=== PATIENT | male | born 1955 | race Caucasian/White ===

== ENCOUNTER 2017-12-18 22:08 | Inpatient (IN) ==
--- NOTE | 2017-12-19 00:52 | Internal Med History&Physical ---
<Magalys Bowden N - Last Filed: 12/19/17 05:19> Date of Encounter: 12/19/17 Time of Encounter: 00:52 Internal Medicine - H&P: HPI Chief complaint: AMS/Pneumonia Admitted From: Hospital to Hospital Transfer History of present illness: Mr. Crowder is a 62 year old male who arrived at [facility] as a transfer from [facility]. Prior to his transfer, patient required physical and chemical restraints due to agitation. Upon arrival at [facility], patient was very somnolent and difficult to wake. Several hours after arrival at [facility], patient continued to be extremely somnolent and unable to stay awake; therefore, HPI is obtained via review of ED records from [place]. Patient has no known medical history and any current medications are unknown. Patient reportedly presented to the ED at [facility] via ambulance from his home due to altered mental status. Per family reports, patient had been feeling unwell for a few days, but was resistant to medical evaluation; per reports, he was combative with EMS personnel en route to the ED. He was found to be hypoxemic upon arrival at [facility], which was improved with supplemental O2. Patient was found to be confused at [facility], oriented only to person and place. Per their documen tation, patient has a history of extensive alcohol use, consuming 5-6 drinks daily. His fiance, who was present at the time, reported that he had not consumed alcohol that day, which is out of the ordinary for him. Initial vital signs recorded at [facility] were as follows: temperature 99.8, HR 114, RR 18, BP 162/86, and oxygen saturation 91%. Laboratory studies were significant for the following abnormalities: WBC 12.3, hemoglobin 19.1, hematocrit 56.4, sodium 121, carbon dioxide 32, and total bilirubin 1.3. Urinalysis was significant for 80 ketones, small bilirubin, and 2.0 urobilinogen. Chest x-ray demonstrated right lower lobe airspace opacification, concerning for pneumonia. Head CT demonstrated no acute intracranial abnormality, though severe white matter disease was noted. Patient was administered 1 dose of levofloxacin, after which she was transferred to [facility] for further workup and management. Prior to transport, patient was noted to be agitated at and combative, and was administer ed 1 mg of Ativan. Patient was seen and evaluated at the bedside upon arrival. At that time, he was very difficult to rouse, and only answered questions with incoherent mumbling. Patient was reassessed several hours later, and remained difficult to arouse, though he was able to remain awake for several seconds. He stated that he was at home and denied any acute complaints or recent illness. Past Med Surg Social Fam HX - Past Medical History Medical history: hyperlipidemia, hypertension - Social History Smoking Status: Current every day smoker Alcohol use: heavy Drug use: none Internal Medicine - H&P: Meds Allergy/AdvReac Type Severity Reaction Status Date / Time No Known Allergies Allergy Verified 12/18/17 17:59 ROS unobtainable: due to mental status - Constitutional Vitals: Temp Pulse Resp BP Pulse Ox 97.8 F 102 14 117/67 96 12/19/17 00:36 12/19/17 00:36 12/19/17 00:47 12/19/17 00:36 12/19/17 00:47 Exam: GENERAL: Well-developed, well-nourished adult male. He is extremely somnolent and difficult to wake. HEENT: Atraumatic and normocephalic. Currently receiving BiPAP therapy. Face appears erythematous. CARDIOVASCULAR: Regular rate and rhythm. S1 and S2 present. No murmurs, gallops, or rubs appreciated. RESPIRATORY: Lungs appear clear bilaterally; however, exam is limited due to patient's somnolence and current BiPAP therapy. GASTROINTESTINAL: Active bowel sounds 4 quadrants. Abdomen is soft and nondistended. No organomegaly noted. EXTREMITIES: No clubbing or cyanosis. 1+ bilateral lower extremity pitting edema that is slightly worse on the right. SKIN: Warm, dry, and intact. NEUROLOGIC: Patient is not oriented to place. Unable to assess if oriented to self and time. Patient observed to move all 4 extremities spontaneously. Internal Med - H&P Results - Labs CBC & Chem 7: 12/19/17 01:52 12/19/17 02:26 - Assessment and plan (1) Altered mental status Current Visit: Yes Status: Acute Assessment and plan: Unclear etiology. Patient did receive 1 dose of Ativan prior to transport to [facility]. - Repeat laboratory studies significant for hemoglobin 18.6, hematocrit 56.0, and sodium 125 - Other laboratory abnormalities: PT 14.5, carbon dioxide 33, serum and calcul ated osmolality 256, calcium 7.9, phosphorus 4.9, BNP 118, and ammonia 54 - Urine toxicology screen negative - No elevation of acetaminophen or salicylate level - TSH and vitamin B12 levels within normal limits - D-dimer elevated at 1385; CTA did not demonstrate any definitive scan evidence for pulmonary embolus Plan: - Brain MRI pending - Continue telemetry monitoring and vital sign assessment per protocol Qualifiers: Altered mental status type: unspecified Qualified Code(s): R41.82 - Altered mental status, unspecified (2) Hyponatremia Current Visit: Yes Status: Acute Assessment and plan: Unclear etiology. - Repeat electrolyte studies for evaluate effect of NS bolus administered at [facility] - Continue gentle IV fluid hydration to allow for slow sodium correction - Urine sodium and osmolality studies pending - Obtain measured serum osmolality (3) Pneumonia Current Visit: Yes Status: Suspected Assessment and plan: Chest x-ray was concerning for a right lower lobe pneumonia. Per nursing notes, initial oxygen saturation at the time of arrival was 80% on 4 L via nasal cannula. Patient has continued to require BiPAP therapy since arrival to [facility]. - Empiric antibiotic therapy with vancomycin and zosyn - Obtain repeat CBC - Urine legionella and strep antigens pending - Pulmonology consult for recommendations Qualifiers: Pneumonia type: due to unspecified organism Laterality: right Lung location: lower lobe of lung Qualified Code(s): J18.1 - Lobar pneumonia, unspecified organism (4) Alcohol abuse Current Visit: Yes Status: Acute Assessment and plan: - CIWA protocol initiated (5) Pleural effusion Current Visit: Yes Status: Acute Assessment and plan: Unknown etiology. - Continue BiPAP therapy as required for appropriate oxygen saturation - Consider thoracentesis and IR consult as necessary - Time Spent With Patient Total time spent is greater than 50% in coordination of care (as documented) at patient's floor/unit and/or counseling patient: <Bernabe Laureanonadya Guzman - Last Filed: 12/19/17 06:54> Date of Encounter: 12/19/17 Internal Medicine - H&P: HPI History of present illness: Mr. Crowder is a 62 year old male All Systems PM: A 10-system review of systems was performed and is negative for pertinent findings except as documented above in the HPI. - Constitutional Vitals: Temp Pulse Resp BP Pulse Ox 97.8 F 102 9 117/67 93 11/11/18 00:36 12/19/17 00:36 12/19/17 04:18 12/19/17 00:36 12/19/17 04:18 Internal Med - H&P Results - Labs CBC & Chem 7: 12/19/17 01:52 12/19/17 02:26 Labs: Short CBC 12/19/17 Range/Units 01:52 WBC 11.1 (4.3-11.1) K/mcL Hgb 18.6 H (12.9-16.9) g/dL Hct 56.0 H (37.5-50.1) % Plt Count 178 (140-400) K/mcL Neutrophils # 8.9 (1.6-8.9) K/mcL BMP 12/19/17 12/19/17 01:52 02:26 Sodium 125 L 124 L Potassium 4.3 4.3 Chloride 88 L 87 L Carbon Dioxide 26 33 H BUN 9 8 Creatinine 0.41 L 0.48 L Glucose 92 89 Calcium 7.9 L 7.9 L Cardiac Enzymes 12/19/17 Range/Units 01:52 Troponin I < 0.03 (< 0.04) ng/mL Liver Function 12/19/17 Range/Units 01:52 Total Bilirubin 0.9 (0.3-1.0) mg/dL AST 22 (13-39) Units/L ALT 23 (7-52) Units/L Alkaline Phosphatase 70 (34-104) Units/L Albumin 3.3 L (3.5-5.7) g/dL - ABG Interpretation ABG results: 12/19/17 04:18 ABG pH 7.33 ABG pCO2 64 H ABG pO2 85 ABG HCO3 34 H ABG Total CO2 36 H ABG O2 Saturation 95 ABG Base Excess 4 H - Impressions ITS Impressions Chest CTA 12/19/17 03:34 IMPRESSION: 1. No definite scan evidence for pulmonary embolus. 2. Pulmonary hypertension. 3. Bilateral pleural effusions with bilateral atelectasis or, less likely, pneumonia. D/ / Roosevelt Hook MD / Roosevelt Hook MD Interpreting Provider: Roosevelt Hook MD - Assessment and plan (1) Altered mental status Current Visit: Yes Status: Acute Qualifiers: Altered mental status type: unspecified Qualified Code(s): R41.82 - Altered mental status, unspecified (2) Pneumonia Current Visit: Yes Status: Suspected Qualifiers: Pneumonia type: due to unspecified organism Laterality: right Lung location: lower lobe of lung Qualified Code(s): J18.1 - Lobar pneumonia, unspecified organism (3) Hyponatremia Current Visit: Yes Status: Acute (4) Alcohol abuse Current Visit: Yes Status: Acute (5) Pleural effusion Current Visit: Yes Status: Acute - Time Spent With Patient Total time spent is greater than 50% in coordination of care (as documented) at patient's floor/unit and/or counseling patient: - Attending Attestation I performed a history and physical examination of the patient to the best of my ability given his mental status and discussed his management with the resident. I reviewed the resident's note and agree with the documented findings and plan of care. In short patient is a 61-year-old male who was transferred from [place] due to altered mental status. According to family members patient has a history of smoking and alcohol use. Patient arrived lethargic and hypoxemic. Was placed on BiPAP with improvement in his respiratory status. Initial ABG upon arrival showed hypercapnia and mild respiratory acidosis likely secondary to treatment with Ativan prior to transfer due to agitation. CT scan of the head at [place] showed evidence of severe white matter disease. A CTA was performed here shortly after arrival in the setting of the patient's r espiratory an elevated d-dimer which was significant showed a large right-sided pleural effusion and atelectasis. Labs were notable for moderately severe hyponatremia. Laboratory workup for underlying etiology has been performed as well as workup for possible altered mental status. We will obtain pulmonary and nephrology consult We will obtain MRI in the morning.
[2017-12-19] MEDS ORDERED: Naloxone 0.4 MG/ML INJ IVP PRN (00:58)
[2017-12-19] MEDS ORDERED: *HR* LORazepam 2 MG/ML VIAL IVP PRN ×2 (01:20)
[2017-12-19] MEDS ORDERED: Thiamine (B-1) 100 MG, Folic Acid 1 MG, MVI, adult with vitamin K 10 ML in 0.9 % Sodi... IVPB SCH ×2 (02:00→18:00)
[2017-12-19] MEDS: 0.9 % Sodium Chloride 1,000 ML IVC SCH ×2 (02:01→16:23)
[2017-12-19 02:02] LABS: Basophils % 0.2 %; Eosinophils % 0.2 %; Hemoglobin 18.6 g/dL (12.9-16.9); Immature Granulocytes % 1.2 % (0-4); Lymphocytes # 0.5 K/mcL (0.6-4.6); Lymphocytes % 4.3 %; Mean Corpuscular HGB Conc 33.2 g/dL (31.6-35.5); Mean Corpuscular Hemoglobin 30.6 pg (28.0-33.3); Mean Corpuscular Volume 92.3 fL (83.0-100.0); Mean Platelet Volume 9.1 fL (9.4-12.4); Monocytes # 1.6 K/mcL (0.0-1.3); Neutrophils # 8.9 K/mcL (1.6-8.9); Nucleated Red Blood Cells 1.4 /100 WBC (0); Platelet Count 178 K/mcL (140-400); Red Blood Count 6.07 M/mcL (4.19-5.50); Red Cell Distribution Width 14.6 % (11.5-14.5); Segmented Neutrophils % 80.1 %
[2017-12-19 02:47] LABS: INR 1.3; Prothrombin Time 14.5 Seconds (9.4-12.1)
[2017-12-19 03:00] LABS: BUN/Creatinine Ratio 17 (6-26); Blood Urea Nitrogen 8 mg/dL (8-23); Calcium 7.9 mg/dL (8.6-10.3); Carbon Dioxide 33 mEq/L (23-29); Chloride 87 mEq/L (98-107); Glucose 89 mg/dL (70-105); Osmolality,Calculated 256 (280-300); Potassium 4.3 mEq/L (3.5-5.1); Sodium 124 mEq/L (136-145); eGFR For Non-African Americans > 60 (> 60)
[2017-12-19] MEDS ORDERED: Isovue-370 500 ML INFUS..BTL IV ONE (03:34)
[2017-12-19 03:37] LABS: Alanine Aminotransferase 23 Units/L (7-52); Albumin 3.3 g/dL (3.5-5.7); Albumin/Globulin Ratio 1.7 (1.1-2.2); Alkaline Phosphatase 70 Units/L (34-104); Aspartate Amino Transferase 22 Units/L (13-39); BUN/Creatinine Ratio 22 (6-26); Bilirubin,Total 0.9 mg/dL (0.3-1.0); Blood Urea Nitrogen 9 mg/dL (8-23); Calcium 7.9 mg/dL (8.6-10.3); Carbon Dioxide 26 mEq/L (23-29); Chloride 88 mEq/L (98-107); Ethanol < 10 mg/dL (Less than 10); Glucose 92 mg/dL (70-105); Magnesium 1.9 mg/dL (1.6-2.6); Osmolality,Calculated 258 (280-300); Phosphorous 4.9 mg/dL (2.7-4.5); Potassium 4.3 mEq/L (3.5-5.1); Sodium 125 mEq/L (136-145); Total Protein 5.3 g/dL (6.4-8.9); Troponin I < 0.03 ng/mL (< 0.04); eGFR For Non-African Americans > 60 (> 60)
[2017-12-19] MEDS: Thiamine (B-1) 100 MG, Folic Acid 1 MG, MVI, adult with vitamin K 10 ML in 0.9 % Sodi... IVPB SCH ×2 (04:15→16:23)
[2017-12-19 04:20] LABS: Amphetamine Screen,Urine Negative ng/mL (Cutoff=1000); Barbiturate Screen,Urine Negative ng/mL (Cutoff=200); Benzodiazepines Screen,Urine Negative ng/mL (Cutoff=200); Cannabinoid Screen,Urine Negative ng/mL (Cutoff = 50); Cocaine Screen,Urine Negative ng/mL (Cutoff= 300); Opiate Screen,Urine Negative ng/mL (Cutoff=300); Phencyclidine Screen,Urine Negative ng/mL (Cutoff=25)
[2017-12-19 04:24] LABS: ABG Base Excess 4 mEq/L (-2 to 3); ABG HCO3 34 mEq/L (21-27); ABG Oxygen Saturation 95 % (95-98); ABG PCO2 64 mmHg (35-45); ABG PH 7.33 pH Units (7.32-7.45); ABG PO2 85 mmHg (85-104); ABG TCO2 36 mEq/L (20-26); Blood Gas Modality ASSIST CONTROL; Blood Gas PEEP 7 cm H2O; Blood Gas Pressure Support 14 cm H2O
[2017-12-19 04:34] LABS: Acetaminophen < 10 mcg/mL (10-20); Creatine Kinase 48 Units/L (30-223); Salicylate < 2.5 mg/dL (15.0-30.0)
[2017-12-19 04:46] LABS: Thyroid Stimulating Hormone 1.356 mcIU/mL (0.340-5.600)
[2017-12-19] MEDS: *HR* Heparin 5,000 UNIT/ML VIAL SQ SCH ×2 (08:35→16:25)
[2017-12-19] MEDS: Piperacillin/Tazobactam 3.375 GM in 0.9 % Sodium Chloride Mini Bag 100 ML IVPB SCH ×2 (08:36→16:25)
--- NOTE | 2017-12-19 08:42 | Internal Med Progress Note ---
<Ap Garcia - Last Filed: 12/19/17 17:22> Hospitalist Progress Note - Encounter Date of Encounter: 12/19/17 - Exam Vitals: Temp Pulse Resp BP Pulse Ox 98.6 F 93 16 142/75 93 12/19/17 16:52 12/19/17 16:52 12/19/17 16:52 12/19/17 16:52 12/19/17 16:52 - Assessment and Plan (1) Altered mental status Current Visit: Yes Status: Acute (2) Pneumonia Current Visit: Yes Status: Suspected (3) Hyponatremia Current Visit: Yes Status: Acute (4) Alcohol abuse Current Visit: Yes Status: Acute (5) Pleural effusion Current Visit: Yes Status: Acute (6) Pulmonary HTN Current Visit: Yes Status: Acute - Time Spent with Patient Total time spent is greater than 50% in coordination of care (as documented) at patient's floor/unit and/or counseling patient: Internal Medicine: Result - Labs CBC & Chem 7: 12/19/17 01:52 12/19/17 16:20 Labs: Short CBC 12/19/17 Range/Units 01:52 WBC 11.1 (4.3-11.1) K/mcL Hgb 18.6 H (12.9-16.9) g/dL Hct 56.0 H (37.5-50.1) % Plt Count 178 (140-400) K/mcL Neutrophils # 8.9 (1.6-8.9) K/mcL BMP 12/19/17 12/19/17 12/19/17 01:52 02:26 16:20 Sodium 125 L 124 L 126 L Potassium 4.3 4.3 Chloride 88 L 87 L Carbon Dioxide 26 33 H BUN 9 8 Creatinine 0.41 L 0.48 L Glucose 92 89 Calcium 7.9 L 7.9 L Cardiac Enzymes 12/19/17 Range/Units 01:52 Troponin I < 0.03 (< 0.04) ng/mL Liver Function 12/19/17 Range/Units 01:52 Total Bilirubin 0.9 (0.3-1.0) mg/dL AST 22 (13-39) Units/L ALT 23 (7-52) Units/L Alkaline Phosphatase 70 (34-104) Units/L Albumin 3.3 L (3.5-5.7) g/dL - ABG Interpretation ABG results: ABG ABG pH 7.33 pH Units (7.32-7.45) 12/19/17 04:18 ABG pCO2 64 mmHg (35-45) H 12/19/17 04:18 ABG pO2 85 mmHg (85-104) 12/19/17 04:18 ABG O2 Saturation 95 % (95-98) 12/19/17 04:18 PT/INR, D-dimer PT 14.5 Seconds (9.4-12.1) H 12/19/17 02:26 D-Dimer 1385 ng/mLFEU (0-500) H 12/19/17 02:26 - Impressions Impressions Chest CTA 12/19/17 03:34 IMPRESSION: 1. No definite scan evidence for pulmonary embolus. 2. Pulmonary hypertension. 3. Bilateral pleural effusions with bilateral atelectasis or, less likely, pneumonia. D/ / Roosevelt Hook MD / Roosevelt Hook MD Interpreting Provider: Roosevelt Hook MD Consult Discharge Plan - Plan [facility]errals: [facility]Primary Care Provider[facility] - - Attending Attestation I examined this patient and my medical decision-making was reviewed with the Resident Physician on 12/19/17. I agree with the documented findings, disposition and treatment plan as described except to the extent set forth below. Mr Crowder was admitted earlier for acute encephalopathy and pneumonia Exam Arousable Mucus membranes dry Heart distant Decreased breath sounds Agree with assessment and plan as above and in H&P <Gianluca Chapa - Last Filed: 12/19/17 19:43> Hospitalist Progress Note - Encounter Date of Encounter: 12/19/17 Time of Encounter: 10:45 - Subjective Interval History: Mr. Crowder is a 61-year-old male who was admitted to the floor because of altered mental status, hyponatremia (121) and evidence of bilateral pleural effusion (more on R). Patient is currently A& O 3 when I met him, sluggish in his speech but is able to comprehend everything. Denies no acute distress. According to patient's fiancee, patient has been 'acting different' for the past 1 week. Most recent sodium is 124, currently on gentle hydration (0.9% NaCl) . BiPAP FiO2: 60%, IPAP: 14, EPAP: 7. Pulmonology did a bedside ultrasound on him and the fluid pocket was not optimal enough for thoracentesis. Currently on gentle diuresis for his pleural effusion. Kidney function looks normal. - Exam Vitals: Temp Pulse Resp BP Pulse Ox 98.1 F 93 16 125/75 94 12/19/17 08:27 12/19/17 08:27 12/19/17 08:27 12/19/17 08:27 12/19/17 08:27 Exam: GENERAL: Well-developed, well-nourished adult male. A&O *3 HEENT: Atraumatic and normocephalic. Currently receiving BiPAP therapy. Face appears erythematous. CARDIOVASCULAR: Regular rate and rhythm. S1 and S2 present. No murmurs, gallops, or rubs appreciated. RESPIRATORY: Lungs appear clear bilaterally; however, exam is limited due to patient's somnolence and current BiPAP therapy. GASTROINTESTINAL: Active bowel sounds 4 quadrants. Abdomen is soft and nondistended. No organomegaly noted. EXTREMITIES: No clubbing or cyanosis. 1+ bilateral lower extremity pitting edema that is slightly worse on the right. SKIN: Warm, dry, and intact. NEUROLOGIC: No cranial nerve deficits, sensory or motor function intact, - Assessment and Plan (1) Altered mental status Current Visit: Yes Status: Acute Assessment and Plan: - Patient was transferred with altered mental status which is likely mulifactorial in nature : due to hyponatremia (Na 121), was also hypercarbic on ABG, mildly elevated ammonia (54). no evidence of intracranial abnormality on head CT. TSH, B12 WNL, urology toxicology screen negative - No Evidence of asterixis on physical exam. Non-Tremulous in extremities. No evidence of DT. CIWA score : 1 - Hepatic panel ordered to rule out transaminitis. - Currently on thiamine, folate and MVI - No indication for brain MRI at this moment because patient is not manifesting any focal neurological deficits. (2) Hyponatremia Current Visit: Yes Status: Acute Assessment and Plan: - likely due to beer potomania, but could also be SIADH as urine osmolarity (449) is higher than serum osmolarity (256). urine sodium > 40 (69) suggesting volume status to be more euvolemic - As nephrology will hold her IV fluids and give salt tablets if patient tolera jarek by mouth - Serial low sodium checks with goal of not more than increase of 8 mEq in the next 24 hours - (3) Pleural effusion Current Visit: Yes Status: Acute Assessment and Plan: - likely due history of undiagnosed CHF. Highly unlikely hepatic hydrothorax secondary to cirrhosis, because of normal transaminases, bilirubin. Although he does have mildly elevated ammonia - Bedside ultrasound this morning and the fluid pocket was not optimal for a thoracentesis. -Currently on gentle diuresis 20 PO Lasix. Kidney Fn normal. Repeat x-ray in the morning. BNP pending. (4) Pneumonia Current Visit: Yes Status: Suspected Assessment and Plan: - Patient has a history of extensive alcohol abuse. According to his fiancee he has been drinking since he was 14. Hence one cannot rule out the possibility of an aspiration pneumonia, -Chest x-ray was concerning for a right lower lobe pneumonia, which fits the picture of aspiration pneumonia. - Currently on BiPAP. - Currently on Zosyn , can be transitioned to Unasyn or Augmentin PO on discharge - (5) Alcohol abuse Current Visit: Yes Status: Acute Assessment and Plan: -Patient has a history of alcohol abuse. As per his fiancee patient has been drinking since he was 14. Patient endorses that he drinks 6 can of 24 ounces beer every day - Physical exam he was not agitated, A&O *3, no evidence of DTs - Currently on banana bag -CIWA score 1 (6) Pulmonary HTN Current Visit: Yes Status: Acute Assessment and Plan: - And had evidence of pulmonary hypertension by the radiological criteria. Likely grade 3 secondary to undiagnosed COPD. - Echo Pending - Time Spent with Patient Total time spent is greater than 50% in coordination of care (as documented) at patient's floor/unit and/or counseling patient: Internal Medicine: Result - Labs CBC & Chem 7: 12/19/17 01:52 12/19/17 16:20 Labs: Short CBC 12/19/17 Range/Units 01:52 WBC 11.1 (4.3-11.1) K/mcL Hgb 18.6 H (12.9-16.9) g/dL Hct 56.0 H (37.5-50.1) % Plt Count 178 (140-400) K/mcL Neutrophils # 8.9 (1.6-8.9) K/mcL BMP 12/19/17 12/19/17 01:52 02:26 Sodium 125 L 124 L Potassium 4.3 4.3 Chloride 88 L 87 L Carbon Dioxide 26 33 H BUN 9 8 Creatinine 0.41 L 0.48 L Glucose 92 89 Calcium 7.9 L 7.9 L Cardiac Enzymes 12/19/17 Range/Units 01:52 Troponin I < 0.03 (< 0.04) ng/mL Liver Function 12/19/17 Range/Units 01:52 Total Bilirubin 0.9 (0.3-1.0) mg/dL AST 22 (13-39) Units/L ALT 23 (7-52) Units/L Alkaline Phosphatase 70 (34-104) Units/L Albumin 3.3 L (3.5-5.7) g/dL - ABG Interpretation ABG results: ABG ABG pH 7.33 pH Units (7.32-7.45) 12/19/17 04:18 ABG pCO2 64 mmHg (35-45) H 12/19/17 04:18 ABG pO2 85 mmHg (85-104) 12/19/17 04:18 ABG O2 Saturation 95 % (95-98) 12/19/17 04:18 PT/INR, D-dimer PT 14.5 Seconds (9.4-12.1) H 12/19/17 02:26 D-Dimer 1385 ng/mLFEU (0-500) H 12/19/17 02:26 - Impressions Impressions Chest CTA 12/19/17 03:34 IMPRESSION: 1. No definite scan evidence for pulmonary embolus. 2. Pulmonary hypertension. 3. Bilateral pleural effusions with bilateral atelectasis or, less likely, pneumonia. D/ / Roosevelt Hook MD / Roosevelt Hook MD Interpreting Provider: Roosevelt Hook MD <Ap Garcia - Last Filed: 12/19/17 17:22> (1) Altered mental status Qualifiers: Altered mental status type: unspecified Qualified Code(s): R41.82 - Altered mental status, unspecified (2) Pneumonia Qualifiers: Pneumonia type: aspiration pneumonia Laterality: right Lung location: lower lobe of lung <Gianluca Chapa - Last Filed: 12/19/17 19:43> (1) Altered mental status Qualifiers: Altered mental status type: unspecified Qualified Code(s): R41.82 - Altered mental status, unspecified (4) Pneumonia Qualifiers: Pneumonia type: aspiration pneumonia Laterality: right Lung location: lower lobe of lung
--- NOTE | 2017-12-19 10:47 | Pulmonology Consult Note ---
Date of Encounter: 12/19/17 Time of Encounter: 08:00 Assessment and Plan (1) COPD (chronic obstructive pulmonary disease) Current Visit: Yes Status: Acute Reviewed imaging patient has lot of centrilobular emphysematous changes the current presentation does not look like COPD exacerbation patient will need bronchodilators if needed ,on discharge he can be discharged on nebulized short- acting bronchodilators. Patient will need outpatient PFTs and pulmonology evaluation. Qualifiers: COPD type: emphysema Qualified Code(s): J43.2 - Centrilobular emphysema (2) Pleural effusion Current Visit: Yes Status: Acute Patient has is bilateral pleural effusion I did an ultrasound of the right lung good a pocket of right-sided pleural effusion not enough to safely do diagnostic thoracentesis. Since patient has bilateral pleural effusion and there is low concern for sepsis secondary to parapneumonic effusion this bilateral effusion is secondary to CHF was likely will get echocardiogram. Also the ultrasound of the right lung showed B-lines suggestive of pulmonary edema .To do gentle diuresis. (3) Pneumonia Current Visit: Yes Status: Suspected Since patient has severe alcohol abuse history concern for aspiration pneumonia is more of a concern to complete 7-10 days of antibiotics will start with Zosyn eventually it can be changed to Augmentin PO on discharge. Qualifiers: Pneumonia type: aspiration pneumonia Laterality: right Lung location: lower lobe of lung Qualified Code(s): J69.0 - Pneumonitis due to inhalation of food and vomit (4) Pulmonary HTN Current Visit: Yes Status: Acute (5) Pulmonary HTN Current Visit: Yes Status: Acute Pulmonary hypertension according to radiological criteria of size of the main pulmonary artery is dilated most likely secondary to COPD and possible CHF will get echo to ascertain pulmonary pressures. He will need outpatient pulmonology follow-up in 4 weeks if his situation changes like worsening pleural effusion please call otherwise pulmonary will sign off History of Present Illness Consult date: 12/19/17 Requesting physician: Magalys Bowden Reason for consult: pleural effusion, pulmonary hypertension Chief complaint: Altered mental status History of present illness: 62-year-old male with severe chronic alcoholic abuse, smoker not formally diagnosed COPD comes here presentation suggestive of alcohol withdrawal CTA showed bilateral pleural effusion and possible right lower lobe pneumonia and patient also has lot of emphysematous changes. Pulmonary was consulted for evaluation of pulmonary hypertension and bilateral pleural effusion patient denies any chest pain chest tightness patient denies any syncope or palpitation denies any active GERD or neuro symptoms he cannot fully participate in the review of systems because of underlying mental status. Pulmonary was consulted for evaluation of this bilateral pleural effusion and pulmonary hypertension. Past Med Surg Social Fam HX - Past Medical History Medical history: hyperlipidemia, hypertension Additional medical history: etoh abuse - Social History Smoking Status: Current every day smoker Smokeless Tobacco Status: No Alcohol use: heavy Drug use: none Medications and Allergies Amlodipine Besylate 10 mg PO DAILY 12/19/17 [History] Aspirin [Adult Aspirin] 81 mg PO DAILY 12/19/17 [History] Atorvastatin [Lipitor] 40 mg PO HS 12/19/17 [History] Cholecalciferol (D-3) [Vitamin D] 1,000 unit PO DAILY 12/19/17 [History] Lisinopril [Zestril] 40 mg PO DAILY 12/19/17 [History] Metoprolol Succinate [Toprol Xl] 100 mg PO DAILY 12/19/17 [History] Multivit-Min/FA/Lycopen/Lutein [A Thru Z Select Men 50+ Tablet] 1 tab PO DAILY 12/19/17 [History] Tamsulosin [Flomax] 0.4 mg PO DAILY 12/19/17 [History] Allergy/AdvReac Type Severity Reaction Status Date / Time No Known Allergies Allergy Verified 12/18/17 17:59 All Systems: The remainder of the systems were reviewed and are negative Physical Examination Vital Signs: Vital Signs, Last 4 Hours Temp Pulse Resp BP Pulse Ox 12/19/17 10:38 98.5 F 97 17 146/81 96 12/19/17 08:27 98.1 F 93 16 125/75 94 Effort: mildly labored Auscultation: bilateral: diminished breath sounds (Basilar), rhonchi (Scattered ) other (looks little anxious and restless) anxious Results - Laboratory Findings CBC and BMP: 12/19/17 01:52 12/19/17 02:26 ABG ABG pH 7.33 pH Units (7.32-7.45) 12/19/17 04:18 ABG pCO2 64 mmHg (35-45) H 12/19/17 04:18 ABG pO2 85 mmHg (85-104) 12/19/17 04:18 ABG O2 Saturation 95 % (95-98) 12/19/17 04:18 PT/INR, D-dimer PT 14.5 Seconds (9.4-12.1) H 12/19/17 02:26 D-Dimer 1385 ng/mLFEU (0-500) H 12/19/17 02:26 Abnormal lab findings: Abnormal lab results RBC 6.07 M/mcL (4.19-5.50) H 12/19/17 01:52 Hgb 18.6 g/dL (12.9-16.9) H 12/19/17 01:52 Hct 56.0 % (37.5-50.1) H 12/19/17 01:52 RDW 14.6 % (11.5-14.5) H 12/19/17 01:52 MPV 9.1 fL (9.4-12.4) L 12/19/17 01:52 Lymphocytes # 0.5 K/mcL (0.6-4.6) L 12/19/17 01:52 Monocytes # 1.6 K/mcL (0.0-1.3) H 12/19/17 01:52 Nucleated RBCs/100 WBC 1.4 /100 WBC (0) H 12/19/17 01:52 PT 14.5 Seconds (9.4-12.1) H 12/19/17 02:26 D-Dimer 1385 ng/mLFEU (0-500) H 12/19/17 02:26 ABG pCO2 64 mmHg (35-45) H 12/19/17 04:18 ABG HCO3 34 mEq/L (21-27) H 12/19/17 04:18 ABG Total CO2 36 mEq/L (20-26) H 12/19/17 04:18 ABG Base Excess 4 mEq/L (-2 to 3) H 12/19/17 04:18 Sodium 124 mEq/L (136-145) L 12/19/17 02:26 Chloride 87 mEq/L (98-107) L 12/19/17 02:26 Carbon Dioxide 33 mEq/L (23-29) H 12/19/17 02:26 Creatinine 0.48 mg/dL (0.70-1.30) L 12/19/17 02:26 Serum Osmolality 256 mOsm/kg (280-300) L 12/19/17 02:26 Calculated Osmolality 256 (280-300) L 12/19/17 02:26 Calcium 7.9 mg/dL (8.6-10.3) L 12/19/17 02:26 Phosphorus 4.9 mg/dL (2.7-4.5) H 12/19/17 01:52 Ammonia 54 mcmol/L (16-53) H 12/19/17 03:56 B-Natriuretic Peptide 118 pg/mL (Less than 100) H 12/19/17 01:52 Serum Total Protein 5.3 g/dL (6.4-8.9) L 12/19/17 01:52 Albumin 3.3 g/dL (3.5-5.7) L 12/19/17 01:52 Globulin 2.0 g/dL (2.4-3.5) L 12/19/17 01:52 Salicylates < 2.5 mg/dL (15.0-30.0) L 12/19/17 03:56 Acetaminophen < 10 mcg/mL (10-20) L 12/19/17 03:56 - Microbiology Findings Microbiology Findings: Microbiology, Last 48 Hours 12/19/17 03:59 Legionella Antigen - Final Urine,Clean Catch 12/19/17 03:59 Streptococcus pneumoniae Antigen (M - Final Urine,Clean Catch - Clinical Findings Intake & Output: Intake & Output 12/18/17 12/19/17 12/19/17 23:59 07:59 15:59 Intake Total 0 / 0 Output Total 500 / 500 Balance -500 / -500 Weight 88.6 kg Consult Discharge Plan - Plan [facility]: [facility] [Primary Care Provider] -
[2017-12-19] MEDS ORDERED: Furosemide 20 MG TABLET PO PRN (11:47)
--- NOTE | 2017-12-19 14:56 | Nephrology Consult Note ---
Date of Encounter: 12/19/17 Time of Encounter: 15:00 Assessment and Plan (1) Hyponatremia Current Visit: Yes Status: Acute Likely due to beer potomania but also possibly multifactorial given PNA and elevated urine osm which shows ADH excess Will check uric acid level, typically low in SIADH Will hold IVF and give salt tabs if tolerating po intakes Agree with thiamine, folate and MVI TSH WNL. Serum osm noted low at 256 Continue serial sodium checks with goal of no more than 8 point elevation in the next 24hrs Can liberalize sodium in diet if eating (2) Altered mental status Current Visit: Yes Status: Acute Improving Qualifiers: Altered mental status type: unspecified Qualified Code(s): R41.82 - Altered mental status, unspecified (3) Pneumonia Current Visit: Yes Status: Suspected Per pulm Qualifiers: Pneumonia type: aspiration pneumonia Laterality: right Lung location: lower lobe of lung Qualified Code(s): J69.0 - Pneumonitis due to inhalation of food and vomit (4) Alcohol abuse Current Visit: Yes Status: Acute Withdrawal precautions per primaty team History of Present Illness - Reason for Consult Consult date: 12/19/17 hyponatremia Requesting physician: Magalys Bowden - History of Present Illness 62 y o male with PMH of HTN, high chol and EtOH abuse admitted from [facility] as a transfer with altered mental status with agitation. Pt was noted in resp. distress requiring biPAP. CTA showed possible RLL PNA and bilateral pleural effu swetha. Also noted was sodium of 121, no previous records at [place] to check for chronicity. Pt received NS at [place] prior to urine studies here. Renal consulted for hyponatremia management. Sodium improved from 121 to 125 and currently at 124. He remains on NS with prn lasix. He also received thiamine, folate with MVI. Pt seen and examined more awake and less confused. He denies any prior history of hyponatremia Past Med Surg Social Fam HX - Past Medical History Medical history: hyperlipidemia, hypertension Additional medical history: etoh abuse - Social History Smoking Status: Current every day smoker Smokeless Tobacco Status: No Alcohol use: heavy Drug use: none Medications and Allergies Amlodipine Besylate 10 mg PO DAILY 12/19/17 [History] Aspirin [Adult Aspirin] 81 mg PO DAILY 12/19/17 [History] Atorvastatin [Lipitor] 40 mg PO HS 12/19/17 [History] Cholecalciferol (D-3) [Vitamin D] 1,000 unit PO DAILY 12/19/17 [History] Lisinopril [Zestril] 40 mg PO DAILY 12/19/17 [History] Metoprolol Succinate [Toprol Xl] 100 mg PO DAILY 12/19/17 [History] Multivit-Min/FA/Lycopen/Lutein [A Thru Z Select Men 50+ Tablet] 1 tab PO DAILY 12/19/17 [History] Tamsulosin [Flomax] 0.4 mg PO DAILY 12/19/17 [History] Allergy/AdvReac Type Severity Reaction Status Date / Time No Known Allergies Allergy Verified 12/18/17 17:59 Review of Systems ROS unobtainable: due to mental status Exam - Vital Signs Vital signs: Initial Vital Signs Temp Pulse Resp BP Pulse Ox 97.8 F 102 23 117/67 95 12/19/17 00:36 12/19/17 00:36 12/19/17 00:36 12/19/17 00:36 12/19/17 00:36 Vital Signs - Last 8 Hours Temp Pulse Resp BP Pulse Ox 12/19/17 10:38 98.5 F 97 17 146/81 96 12/19/17 08:27 98.1 F 93 16 125/75 94 Intake and Output 12/18/17 12/19/17 12/19/17 23:59 07:59 15:59 Intake Total 0 / 0 1080 / 1080 Output Total 500 / 500 1250 / 1250 Balance -500 / -500 -170 / -170 Intake: IV Fluids 600 / 600 Zosyn 3.375 GM In 0.9 % Sodium 100 / 100 Chloride (Mini-Bag +) 100 ML @ 25 mls/hr IVPB Q8HR ABRAHAM Rx#: [id number] Vitamin B-1 100 MG Folvite 1 MG 500 / 500 M.v.i. Adult 10 ml In 0.9 % Sodium Chloride 500 ML @ 85.2 mls/hr IVPB DAILY@1800 ABRAHAM Rx#: [id number] Oral 0 / 0 480 / 480 Output: Urine 0 / 0 1250 / 1250 Straight Cath 500 / 500 Other: Meal Lunch Percent of Meal Consumed 100% Stool Size Moderate Stool Consistency formed Stool Characteristics Normal for Patient # Bowel Movement Diapers 1 Weight 88.6 kg Blood Glucose* 87 Patient Weight 12/19/17 23:59 Weight 88.6 kg - General Appearance General appearance: chronically ill, fatigue EENT: ATNC, mucous membranes dry Neck: no JVD, supple Respiratory: course breath sounds Cardiology: no edema, normal S1, normal S2 Gastrointestinal: no tenderness, no guarding Integumentary: warm and dry Neurologic: no focal deficit, disoriented (but improved) Musculoskeletal: no deformities Psychiatric: cooperative Results - Lab Results 12/19/17 01:52 12/19/17 20:03 Most recent lab results ABG pH 7.33 pH Units (7.32-7.45) 12/19/17 04:18 ABG pCO2 64 mmHg (35-45) H 12/19/17 04:18 ABG pO2 85 mmHg (85-104) 12/19/17 04:18 ABG HCO3 34 mEq/L (21-27) H 12/19/17 04:18 ABG O2 Saturation 95 % (95-98) 12/19/17 04:18 Calcium 7.9 mg/dL (8.6-10.3) L 12/19/17 02:26 Phosphorus 4.9 mg/dL (2.7-4.5) H 12/19/17 01:52 Magnesium 1.9 mg/dL (1.6-2.6) 12/19/17 01:52 Urine Sodium 69.0 mEq/L 12/19/17 03:59 Consult Discharge Plan - Plan [facility]errals: [facility] [Primary Care Provider] -
[2017-12-20] MEDS: Piperacillin/Tazobactam 3.375 GM in 0.9 % Sodium Chloride Mini Bag 100 ML IVPB SCH ×2 (00:48→08:44)
[2017-12-20] MEDS: *HR* Heparin 5,000 UNIT/ML VIAL SQ SCH ×3 (00:53→16:27)
[2017-12-20 05:40] LABS: Basophils % 0.4 %; Eosinophils % 0.3 %; Hematocrit 54.2 % (37.5-50.1); Hemoglobin 17.2 g/dL (12.9-16.9); Immature Granulocytes % 2.2 % (0-4); Lymphocytes # 0.5 K/mcL (0.6-4.6); Lymphocytes % 5.2 %; Mean Corpuscular HGB Conc 31.7 g/dL (31.6-35.5); Mean Corpuscular Volume 94.6 fL (83.0-100.0); Mean Platelet Volume 9.6 fL (9.4-12.4); Monocytes # 1.5 K/mcL (0.0-1.3); Monocytes % 15.5 %; Neutrophils # 7.5 K/mcL (1.6-8.9); Nucleated Red Blood Cells 0.9 /100 WBC (0); Platelet Count 178 K/mcL (140-400); Red Blood Count 5.73 M/mcL (4.19-5.50); Red Cell Distribution Width 15.2 % (11.5-14.5); Segmented Neutrophils % 76.4 %
[2017-12-20 05:57] LABS: BUN/Creatinine Ratio 14 (6-26); Blood Urea Nitrogen 5 mg/dL (8-23); Calcium 7.1 mg/dL (8.6-10.3); Carbon Dioxide 31 mEq/L (23-29); Chloride 93 mEq/L (98-107); Glucose 105 mg/dL (70-105); Osmolality,Calculated 274 (280-300); Potassium 3.6 mEq/L (3.5-5.1); Sodium 133 mEq/L (136-145); eGFR For Non-African Americans > 60 (> 60)
--- NOTE | 2017-12-20 07:29 | Event Note ---
Date of Encounter: 12/20/17 Time of Encounter: 07:27 Nephrology Chart Update I received a sign-out from my colleague regarding this pt; and, I see that his hyponatremia has nicely and nearly resolved. I will sign-off at this point, but as always please feel free to call or page me with any questions. Thank you for having consulted the [facility] group.
--- NOTE | 2017-12-20 09:04 | Internal Med Progress Note ---
<Gianluca Chapa - Last Filed: 12/20/17 16:35> Hospitalist Progress Note - Encounter Date of Encounter: 12/20/17 Time of Encounter: 09:00 - Subjective Interval History: 12/20 Saw Mr. Crowder at the bedside this morning. Patient endorses no acute distress. The sodium levels is 133 as of this morning patient was 121 on admission. He was given IV fluids with total intake of 4.5 L. Most chest x- ray showed increased opacification of the right mid to lower lung as well as the left lung base. With his history of alcohol abuse there is a concern for aspiration pneumonia. Patient completed his 3 day course of Zosyn, and will start him on Unasyn for her Aspiration PNA. Patient's Echocardiogram showed no evidence of any valvular and cardiac abnormalities. 12/19 Mr. Crowder is a 61-year-old male who was admitted to the floor because of altered mental status, hyponatremia (121) and evidence of bilateral pleural effusion (more on R). Patient is currently A& O 3 when I met him, sluggish in his speech but is able to comprehend everything. Denies no acute distress. According to patient's fiancee, patient has been 'acting different' for the past 1 week. Most recent sodium is 124, currently on gentle hydration (0.9% NaCl) . BiPAP FiO2: 60%, IPAP: 14, EPAP: 7. Pulmonology did a bedside ultrasound on him and the fluid pocket was not optimal enough for thoracentesis. Currently on gentle diuresis for his pleural effusion. Kidney function looks normal. - Exam Vitals: Temp Pulse Resp BP Pulse Ox 97.5 F L 100 17 141/74 89 12/20/17 06:55 12/20/17 06:55 12/20/17 04:14 12/20/17 06:55 12/20/17 06:55 Exam: GENERAL: Well-developed, well-nourished adult male. A&O *3 HEENT: Atraumatic and normocephalic. Currently receiving BiPAP therapy. Face appears erythematous. CARDIOVASCULAR: Regular rate and rhythm. S1 and S2 present. No murmurs, gallops, or rubs appreciated. RESPIRATORY: decreased breath sounds on the Right lung base GASTROINTESTINAL: Active bowel sounds 4 quadrants. Abdomen is soft and nondistended. No organomegaly noted. EXTREMITIES: No clubbing or cyanosis. 1+ bilateral lower extremity pitting edema that is slightly worse on the right. SKIN: Warm, dry, and intact. NEUROLOGIC: No cranial nerve deficits, sensory or motor function intact, - Assessment and Plan (1) Altered mental status Current Visit: Yes Status: Acute Assessment and Plan: - Patient was transferred with altered mental status which is likely mulifactorial in nature : likely due to hyponatremia (Na 121 -> 133), was also hypercarbic on ABG, mildly elevated ammonia (54). no evidence of intracranial abnormality on head CT. TSH, B12 WNL, urology toxicology screen negative - No Evidence of asterixis on physical exam. Non-Tremulous in extremities. No evidence of DT. CIWA score : 1 - On Physical exam he appears to be of less altered to me then yesterday Continue to monitor. (2) Hyponatremia Current Visit: Yes Status: Acute Assessment and Plan: - likely due to beer potomania, urine osmolarity (449) is higher than serum osmolarity (256). urine sodium > 40 (69) suggesting volume status to be more euvolemic - Patient responded well to gentle hydration Most recent sodium is 133. Hold off on further hydration because of concerns for aspiration pneumonia - Continue to monitor - (3) Pleural effusion Current Visit: Yes Status: Acute Assessment and Plan: - Etiology currently unknown. Likely due to concerns for aspiration pneumonia. Highly unlikely hepatic hydrothorax secondary to cirrhosis, because of normal transaminases, bilirubin. Although he does have mildly elevated ammonia - Bedside ultrasound yesterday showed the fluid pocket that was not optimal for a thoracentesis. Repeat chest x-ray showed worsening right pneumonia, concerns for foreign body/fluid aspiration and it will be important to continue monitoring the respiratory status of the patient and might need bronchoscopy if his respiratory status worsens -Currently on gentle diuresis 20 PO Lasix. Kidney Fn normal. (4) Pneumonia Current Visit: Yes Status: Suspected Assessment and Plan: - Patient has a history of extensive alcohol abuse. According to his fiancee he has been drinking since he was 14. Hence one cannot rule out the possibility of an aspiration pneumonia, -Recent Chest x-ray was concerning for a right lower lobe pneumonia, which fits the picture of aspiration pneumonia. Patient's respiratory infection panel was negative - Currently on BiPAP. - Patient completed day 3 of Zosyn today and will be transitioned to Unasyn because of concerns for aspiration pneumonia - (5) Alcohol abuse Current Visit: Yes Status: Acute Assessment and Plan: -Patient has a history of alcohol abuse. As per his fiancee patient has been drinking since he was 14. Patient endorses that he drinks 6 can of 24 ounces beer every day - Physical exam he was not agitated, A&O *3, no evidence of DTs - Currently on banana bag -CIWA score 1 (6) Pulmonary HTN Current Visit: Yes Status: Acute Assessment and Plan: - There was evidence of pulmonary hypertension by the radiological criteria. Likely grade 3 secondary to undiagnosed COPD. however echocardiogram did not show any evidence of pulmonary hypertension - It would be reasonable to follow-up with a education research analyst as an outpatient to further work it up - Time Spent with Patient Total time spent is greater than 50% in coordination of care (as documented) at patient's floor/unit and/or counseling patient: Internal Medicine: Result - Labs CBC & Chem 7: 12/20/17 04:46 12/20/17 04:46 Labs: Short CBC 12/20/17 Range/Units 04:46 WBC 9.8 (4.3-11.1) K/mcL Hgb 17.2 H (12.9-16.9) g/dL Hct 54.2 H (37.5-50.1) % Plt Count 178 (140-400) K/mcL Neutrophils # 7.5 (1.6-8.9) K/mcL BMP 12/19/17 12/19/17 12/20/17 16:20 20:03 04:46 Sodium 126 L 129 L 133 L Potassium 3.6 Chloride 93 L Carbon Dioxide 31 H BUN 5 L Creatinine 0.36 L Glucose 105 Calcium 7.1 L - ABG Interpretation ABG results: ABG ABG pH 7.33 pH Units (7.32-7.45) 12/19/17 04:18 ABG pCO2 64 mmHg (35-45) H 12/19/17 04:18 ABG pO2 85 mmHg (85-104) 12/19/17 04:18 ABG O2 Saturation 95 % (95-98) 12/19/17 04:18 PT/INR, D-dimer PT 14.5 Seconds (9.4-12.1) H 12/19/17 02:26 D-Dimer 1385 ng/mLFEU (0-500) H 12/19/17 02:26 - Impressions Impressions Chest X-Ray 12/20/17 04:00 IMPRESSION: Increasing opacification of the right mid to lower lung as well as at the left lung base. D/ / Marvin Zhou MD / Marvin Zhou MD Interpreting Provider: Marvin Zhou MD - VTE Documentation of Mechanical Device: Intermittent pneumatic compression device Consult Discharge Plan - Plan [facility]errals: [facility] [Primary Care Provider] - <Ap Garcia - Last Filed: 12/20/17 18:01> Hospitalist Progress Note - Encounter Date of Encounter: 12/20/17 - Exam Vitals: Temp Pulse Resp BP Pulse Ox 98.1 F 93 17 130/65 93 12/20/17 10:26 12/20/17 15:42 12/20/17 04:14 12/20/17 15:42 12/20/17 15:42 - Assessment and Plan (1) Acute respiratory failure with hypoxia Current Visit: Yes Status: Acute Assessment and Plan: Wean oxygen as able. (2) Pneumonia Current Visit: Yes Status: Suspected (3) Hyponatremia Current Visit: Yes Status: Acute (4) Alcohol abuse Current Visit: Yes Status: Chronic (5) Pleural effusion Current Visit: Yes Status: Acute (6) Pulmonary HTN Current Visit: Yes Status: Suspected (7) Tobacco abuse Current Visit: Yes Status: Chronic (8) Altered mental status Current Visit: Yes Status: Resolved - Time Spent with Patient Total time spent is greater than 50% in coordination of care (as documented) at patient's floor/unit and/or counseling patient: Internal Medicine: Result - Labs CBC & Chem 7: 12/20/17 04:46 12/20/17 04:46 Labs: Short CBC 12/20/17 Range/Units 04:46 WBC 9.8 (4.3-11.1) K/mcL Hgb 17.2 H (12.9-16.9) g/dL Hct 54.2 H (37.5-50.1) % Plt Count 178 (140-400) K/mcL Neutrophils # 7.5 (1.6-8.9) K/mcL BMP 12/19/17 12/20/17 20:03 04:46 Sodium 129 L 133 L Potassium 3.6 Chloride 93 L Carbon Dioxide 31 H BUN 5 L Creatinine 0.36 L Glucose 105 Calcium 7.1 L - ABG Interpretation ABG results: ABG ABG pH 7.33 pH Units (7.32-7.45) 12/19/17 04:18 ABG pCO2 64 mmHg (35-45) H 12/19/17 04:18 ABG pO2 85 mmHg (85-104) 12/19/17 04:18 ABG O2 Saturation 95 % (95-98) 12/19/17 04:18 PT/INR, D-dimer PT 14.5 Seconds (9.4-12.1) H 12/19/17 02:26 D-Dimer 1385 ng/mLFEU (0-500) H 12/19/17 02:26 - Impressions Impressions Chest X-Ray 12/20/17 04:00 IMPRESSION: Increasing opacification of the right mid to lower lung as well as at the left lung base. D/ / Marvin Zhou MD / Marvin Zhou MD Interpreting Provider: Marvin Zhou MD Echocardiogram 12/20/17 09:19 Impressions: LVEF 65-70%. Normal LV chamber size, wall thickness and function. Mildly dilated right ventricle with normal function. Mildly dilated left atrium and right atrium. No significant valvular dysfunction. No pulmonary hypertension. Left Ventricular Wall Motion: Rest Echo Findings All wall segments showed normal motion. Findings: Study Quality * Technically adequate exam. ECG Findings * Normal sinus rhythm. Left Ventricle * LVEF 65-70%. * Normal LV chamber size, wall thickness and function. * Normal left ventricular diastolic function. * Definity echo contrast was not used. Right Ventricle * Mildly dilated right ventricle. * Normal right ventricular function. Left Atrium * Mildly dilated left atrium. Right Atrium * Mildly dilated right atrium. Interatrial Septum * Interatrial septum not well evaluated. * No evidence of PFO by color Doppler. Aortic Valve * No aortic stenosis. * Aortic valve not well visualized. * Trace aortic regurgitation. Mitral Valve * Normal mitral valve structure and function. * No mitral stenosis. * Trace mitral regurgitation. Tricuspid Valve * Normal tricuspid valve structure and function. * No tricuspid stenosis. * Trace tricuspid regurgitation. * Estimated RVSP is 31 mmHg. * Estimated RA pressure is 10 mmHg. * No pulmonary hypertension. Pulmonic Valve * Pulmonic valve not well visualized. * Trace pulmonic regurgitation. * No pulmonic stenosis. Aorta * Normally sized aortic root. Pericardium * The pericardium appears normal. IVC * Normal IVC dimensions and inspiratory collapse. - Attending Attestation I examined this patient and my medical decision-making was reviewed with the Resident Physician on 12/20/17. I agree with the documented findings, disposition and treatment plan as described except to the extent set forth below. Mr Crowder is currently admitted for resp failure and presumed aspiration pneumonia. He remains moderate to high risk due to potential for worsening clinical status. Mr Crowder is still on high flow nasal canula. No fever or chills. No CP at this time. More alert today. No GI issues. Exam alert Comfortable in bed Mucus membranes dry Heart reg Decreased breath sounds on R. No wheeze abd soft and nontender No tremor. I/P 1. Resp failure 2. Pneumonia - probably aspiration. Currently on IV abx 3. Pleural effusion - diuresing at this time. 4. ETOH abuse Further diagnoses and plan as above. <Gianluca Chapa - Last Filed: 12/20/17 16:35> (1) Altered mental status Qualifiers: Altered mental status type: unspecified Qualified Code(s): R41.82 - Altered mental status, unspecified (4) Pneumonia Qualifiers: Pneumonia type: aspiration pneumonia Laterality: right Lung location: lower lobe of lung <Ap Garcia - Last Filed: 12/20/17 18:01> (2) Pneumonia Qualifiers: Pneumonia type: aspiration pneumonia Laterality: right Lung location: lower lobe of lung Qualified Code(s): J69.0 - Pneumonitis due to inhalation of food and vomit (8) Altered mental status Qualifiers: Altered mental status type: unspecified Qualified Code(s): R41.82 - Altered mental status, unspecified
[2017-12-20] MEDS: Ampicillin/Sulbactam 1,500 MG in 0.9 % Sodium Chloride Mini Bag 100 ML IVPB SCH ×2 (13:01→18:40)
[2017-12-20] MEDS: Furosemide 20 MG TABLET PO SCH (13:01)
[2017-12-20] MEDS ORDERED: Ipratropium/Albuterol Neb 3 ML IH PRN (14:23)
[2017-12-20 15:49] LABS: Adenovirus Not Detected (Not Detect); Bordetella Pertussis Not Detected (Not Detect); Chlamydophila pneumoniae Not Detected (Not Detect); Coronavirus 229E Not Detected (Not Detect); Coronavirus HKU1 Not Detected (Not Detect); Coronavirus NL63 Not Detected (Not Detect); Coronavirus OC43 Not Detected (Not Detect); Human Metapneumovirus Not Detected (Not Detect); Human Rhinovirus/Enterovirus Not Detected (Not Detect); Influenza A Subtype 2009 H1 Not Detected (Not Detect); Influenza A Untypeable Not Detected (Not Detect); Influenza B Not Detected (Not Detect); Mycoplasma pneumoniae Not Detected (Not Detect); Parainfluenza Virus 1 Not Detected (Not Detect); Parainfluenza Virus 2 Not Detected (Not Detect); Parainfluenza Virus 3 Not Detected (Not Detect); Parainfluenza Virus 4 Not Detected (Not Detect); Respiratory Syncytial Virus Not Detected (Not Detect)
[2017-12-20] MEDS: Thiamine (B-1) 100 MG, Folic Acid 1 MG, MVI, adult with vitamin K 10 ML in 0.9 % Sodi... IVPB SCH (19:32)
[2017-12-21] MEDS: *HR* Heparin 5,000 UNIT/ML VIAL SQ SCH ×3 (00:59→16:20)
[2017-12-21] MEDS: Ampicillin/Sulbactam 1,500 MG in 0.9 % Sodium Chloride Mini Bag 100 ML IVPB SCH ×4 (00:59→17:50)
[2017-12-21 06:08] LABS: Basophils % 0.3 %; Eosinophils # 0.1 K/mcL (0.0-0.6); Eosinophils % 0.7 %; Hematocrit 52.7 % (37.5-50.1); Hemoglobin 16.7 g/dL (12.9-16.9); Immature Granulocytes % 0.8 % (0-4); Lymphocytes # 0.5 K/mcL (0.6-4.6); Lymphocytes % 4.7 %; Mean Corpuscular HGB Conc 31.7 g/dL (31.6-35.5); Mean Corpuscular Hemoglobin 30.1 pg (28.0-33.3); Mean Corpuscular Volume 95.1 fL (83.0-100.0); Mean Platelet Volume 9.5 fL (9.4-12.4); Monocytes # 1.4 K/mcL (0.0-1.3); Monocytes % 13.4 %; Neutrophils # 8.5 K/mcL (1.6-8.9); Nucleated Red Blood Cells 0.3 /100 WBC (0); Platelet Count 173 K/mcL (140-400); Red Blood Count 5.54 M/mcL (4.19-5.50); Segmented Neutrophils % 80.1 %
[2017-12-21 06:31] LABS: BUN/Creatinine Ratio 7 (6-26); Blood Urea Nitrogen 3 mg/dL (8-23); Calcium 7.8 mg/dL (8.6-10.3); Carbon Dioxide 39 mEq/L (23-29); Chloride 90 mEq/L (98-107); Glucose 101 mg/dL (70-105); Osmolality,Calculated 271 (280-300); Potassium 3.9 mEq/L (3.5-5.1); Sodium 132 mEq/L (136-145); eGFR For Non-African Americans > 60 (> 60)
[2017-12-21] MEDS: Metoprolol XL (24 HR) Succ 50 MG TAB.ER.24H PO SCH (09:52)
[2017-12-21] MEDS: Cholecalciferol (D-3) 1,000 UNIT TABLET PO SCH (09:52)
[2017-12-21] MEDS: Aspirin Enteric Coated 81 MG Tablet PO SCH (09:52)
[2017-12-21] MEDS: Multivit/Ca/Min/Fe/FA 1 TAB TABLET PO SCH (09:52)
[2017-12-21] MEDS: amLODIPine 5 MG TABLET PO SCH (09:52)
[2017-12-21] MEDS: Lisinopril 20 MG TABLET PO SCH (09:53)
--- NOTE | 2017-12-21 10:05 | Internal Med Progress Note ---
<Catarina Otero - Last Filed: 12/21/17 15:08> Hospitalist Progress Note - Encounter Date of Encounter: 12/21/17 - Exam Vitals: Temp Pulse Resp BP Pulse Ox 98.5 F 92 19 145/84 90 12/21/17 05:47 12/21/17 11:14 12/21/17 05:47 12/21/17 11:14 12/21/17 11:14 - Assessment and Plan (1) Altered mental status Current Visit: Yes Status: Resolved (2) Pneumonia Current Visit: Yes Status: Suspected (3) Hyponatremia Current Visit: Yes Status: Acute (4) Alcohol abuse Current Visit: Yes Status: Chronic (5) Pleural effusion Current Visit: Yes Status: Acute (6) Pulmonary HTN Current Visit: Yes Status: Suspected (7) Acute respiratory failure with hypoxia Current Visit: Yes Status: Acute (8) Tobacco abuse Current Visit: Yes Status: Chronic - Time Spent with Patient Total time spent is greater than 50% in coordination of care (as documented) at patient's floor/unit and/or counseling patient: Internal Medicine: Result - Labs CBC & Chem 7: 12/21/17 05:52 12/21/17 05:52 Labs: Short CBC 12/21/17 Range/Units 05:52 WBC 10.6 (4.3-11.1) K/mcL Hgb 16.7 (12.9-16.9) g/dL Hct 52.7 H (37.5-50.1) % Plt Count 173 (140-400) K/mcL Neutrophils # 8.5 (1.6-8.9) K/mcL BMP 12/21/17 05:52 Sodium 132 L Potassium 3.9 Chloride 90 L Carbon Dioxide 39 H BUN 3 L Creatinine 0.44 L Glucose 101 Calcium 7.8 L - ABG Interpretation ABG results: ABG ABG pH 7.33 pH Units (7.32-7.45) 12/19/17 04:18 ABG pCO2 64 mmHg (35-45) H 12/19/17 04:18 ABG pO2 85 mmHg (85-104) 12/19/17 04:18 ABG O2 Saturation 95 % (95-98) 12/19/17 04:18 PT/INR, D-dimer PT 14.5 Seconds (9.4-12.1) H 12/19/17 02:26 D-Dimer 1385 ng/mLFEU (0-500) H 12/19/17 02:26 Consult Discharge Plan - Plan [facility]errals: [facility] [Primary Care Provider[facility] - - Attending Attestation I examined this patient and my medical decision-making was reviewed with the Resident Physician Dr Chapa. I agree with the documented findings, disposition and treatment plan as described except to the extent set forth below/addl details below. Mr Crowder is currently admitted for resp failure and presumed aspiration pneumonia and hyponatremia. He has chronic etoh use and there is concern he will actively withdrawal this admission and liver disease may be component of his respiratory status. awake lying flat in bed. no change in sob, remains on high flow nc. denies cough, sputum, fevers or chills. no cp, pressure or palpitations. denies s/s of etoh withdrawal at this time and states he hasn't ever gone through withdrawal in past. gen- alert, awake,appears stated age eyes- pupils equal round , no scleral icterus, eom intact cv- reg rate and rhythm, normal s1,s2, no murmurs appreciated, radial pulses 2+ and equal,1+ pitting rle and no pitting edema bl le, no jvd lungs- ctabl, no wheezing, rhonchi or crackles but poor aeration and diminished bs throughout abd- soft, non tender, non distended, + bs neuro- AAOx3, CN grossly intact, no hand tremor Acute hypoxic and hypercarbic Resp failure 2/2 pleural effusion, Possible aspiration Pneumonia, Possible shunting related to his etoh use CTA without PE -pulm following, check echo with bubble, wean o2 as able, diursese as kidneys permit, check procalcitonin as this may not be related to pna as previously th ought on re eval by pulm, at this time cont iv abx and pna treatment, begin symbicort -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 <Gianluca Chapa - Last Filed: 12/21/17 17:36> Hospitalist Progress Note - Encounter Date of Encounter: 12/21/17 Time of Encounter: 09:00 - Subjective Interval History: 12/21 Told Mr. Crowder's nurse to give him a cup so we can do a sputum culture on him. Patent is satting on 10 L at 94%, endorses no worsening cough, SOB, or prod uctive sputum. I am going to get a CXR tomorrow morning on him . patient is on day 1 of unasyn for concerns for Asp Pneumonia. 12/20 Saw Mr. Crowder at the bedside this morning. Patient endorses no acute distress. The sodium levels is 133 as of this morning patient was 121 on admission. He was given IV fluids with total intake of 4.5 L. Most chest x- ray showed increased opacification of the right mid to lower lung as well as the left lung base. With his history of alcohol abuse there is a concern for aspiration pneumonia. Patient completed his 3 day course of Zosyn, and will start him on Unasyn for her Aspiration PNA. Patient's Echocardiogram showed no evidence of any valvular and cardiac abnormalities. 12/19 Mr. Crowder is a 61-year-old male who was admitted to the floor because of altered mental status, hyponatremia (121) and evidence of bilateral pleural effusion (more on R). Patient is currently A& O 3 when I met him, sluggish in his speech but is able to comprehend everything. Denies no acute distress. According to patient's fiancee, patient has been 'acting different' for the past 1 week. Most recent sodium is 124, currently on gentle hydration (0.9% NaCl) . BiPAP FiO2: 60%, IPAP: 14, EPAP: 7. Pulmonology did a bedside ultrasound on him and the fluid pocket was not optimal enough for thoracentesis. Currently on gentle diuresis for his pleural effusion. Kidney function looks normal. - Exam Vitals: Temp Pulse Resp BP Pulse Ox 98.5 F 99 19 141/71 87 12/21/17 05:47 12/21/17 07:18 12/21/17 05:47 12/21/17 07:18 12/21/17 07:18 Exam: GENERAL: Well-developed, well-nourished adult male. A&O *3 HEENT: Atraumatic and normocephalic. Currently receiving BiPAP therapy. Face appears erythematous. CARDIOVASCULAR: Regular rate and rhythm. S1 and S2 present. No murmurs, gallops, or rubs appreciated. RESPIRATORY: decreased breath sounds on the Right lung base GASTROINTESTINAL: Active bowel sounds 4 quadrants. Abdomen is soft and nondistended. No organomegaly noted. EXTREMITIES: No clubbing or cyanosis. 1+ bilateral lower extremity pitting edema that is slightly worse on the right. SKIN: Warm, dry, and intact. NEUROLOGIC: No cranial nerve deficits, sensory or motor function intact, - Assessment and Plan (1) Altered mental status Current Visit: Yes Status: Resolved Assessment and Plan: - Patient was transferred with altered mental status which is likely mulifactorial in nature : likely due to hyponatremia (Na 121 -> 132), was also hypercarbic on ABG, mildly elevated ammonia (54). no evidence of intracranial abnormality on head CT. TSH, B12 WNL, urology toxicology screen negative - No Evidence of asterixis on physical exam. Non-Tremulous in extremities. No evidence of DT. CIWA score : 1 - On Physical exam he appears to be of less altered to me then yesterday. - On thaimine, vitamin/minerals for chronic EtOH use (2) Pneumonia Current Visit: Yes Status: Suspected Assessment and Plan: - Patient has a history of extensive alcohol abuse. According to his fiancee he has been drinking since he was 14. Hence one cannot rule out the possibility of an aspiration pneumonia, -Recent Chest x-ray was concerning for a right lower lobe pneumonia, which fits the picture of aspiration pneumonia. Patient's respiratory infection panel was negative - Currently on BiPAP. - Patient currnetly on day 2 of Unasyn . - (3) Hyponatremia Current Visit: Yes Status: Acute Assessment and Plan: - likely due to beer potomania, urine osmolarity (449) is higher than serum osmolarity (256). urine sodium > 40 (69) suggesting volume status to be more euvolemic - Patient responded well to gentle hydration Most recent sodium is 132. Hold off on further hydration because of pleural effusion - Continue to monitor - (4) Alcohol abuse Current Visit: Yes Status: Chronic Assessment and Plan: -Patient has a history of alcohol abuse. As per his fiancee patient has been drinking since he was 14. Patient endorses that he drinks 6 can of 24 ounces beer every day - Physical exam he was not agitated, A&O *3, no evidence of DTs - Currently on PO thiamine and vitamins/minerals -CIWA score 1 (5) Pleural effusion Current Visit: Yes Status: Acute Assessment and Plan: - Etiology currently unknown. Likely due to concerns for aspiration pneumonia. Highly unlikely hepatic hydrothorax secondary to cirrhosis, because of normal transaminases, bilirubin. Although he does have mildly elevated ammonia - Bedside ultrasound yesterday showed the fluid pocket that was not optimal for a thoracentesis. Repeat chest x-ray showed worsening right pneumonia, concerns for foreign body/fluid aspiration and it will be important to continue monitoring the respiratory status of the patient and might need bronchoscopy if his respiratory status worsens -Is due to diuresis regimen from 20-40 PO daily as per pulmonology. Monitor kidney function (6) Pulmonary HTN Current Visit: Yes Status: Suspected Assessment and Plan: - There was evidence of pulmonary hypertension by the radiological criteria. Likely grade 3 secondary to undiagnosed COPD. however echocardiogram did not show any evidence of pulmonary hypertension - It would be reasonable to follow-up with a electromagnet crane operator as an outpatient to further work it up (7) Acute respiratory failure with hypoxia Current Visit: Yes Status: Acute Assessment and Plan: Wean oxygen as able. (8) Tobacco abuse Current Visit: Yes Status: Chronic Assessment and Plan: -Patient has a history of extensive tobacco abuse. Consult on smoking cessation. - Time Spent with Patient Total time spent is greater than 50% in coordination of care (as documented) at patient's floor/unit and/or counseling patient: Internal Medicine: Result - Labs CBC & Chem 7: 12/21/17 05:52 12/21/17 05:52 Labs: Short CBC 12/21/17 Range/Units 05:52 WBC 10.6 (4.3-11.1) K/mcL Hgb 16.7 (12.9-16.9) g/dL Hct 52.7 H (37.5-50.1) % Plt Count 173 (140-400) K/mcL Neutrophils # 8.5 (1.6-8.9) K/mcL BMP 12/21/17 05:52 Sodium 132 L Potassium 3.9 Chloride 90 L Carbon Dioxide 39 H BUN 3 L Creatinine 0.44 L Glucose 101 Calcium 7.8 L - ABG Interpretation ABG results: ABG ABG pH 7.33 pH Units (7.32-7.45) 12/19/17 04:18 ABG pCO2 64 mmHg (35-45) H 12/19/17 04:18 ABG pO2 85 mmHg (85-104) 12/19/17 04:18 ABG O2 Saturation 95 % (95-98) 12/19/17 04:18 PT/INR, D-dimer PT 14.5 Seconds (9.4-12.1) H 12/19/17 02:26 D-Dimer 1385 ng/mLFEU (0-500) H 12/19/17 02:26 - Impressions Impressions Echocardiogram 12/20/17 09:19 Impressions: LVEF 65-70%. Normal LV chamber size, wall thickness and function. Mildly dilated right ventricle with normal function. Mildly dilated left atrium and right atrium. No significant valvular dysfunction. No pulmonary hypertension. Left Ventricular Wall Motion: Rest Echo Findings All wall segments showed normal motion. Findings: Study Quality * Technically adequate exam. ECG Findings * Normal sinus rhythm. Left Ventricle * LVEF 65-70%. * Normal LV chamber size, wall thickness and function. * Normal left ventricular diastolic function. * Definity echo contrast was not used. Right Ventricle * Mildly dilated right ventricle. * Normal right ventricular function. Left Atrium * Mildly dilated left atrium. Right Atrium * Mildly dilated right atrium. Interatrial Septum * Interatrial septum not well evaluated. * No evidence of PFO by color Doppler. Aortic Valve * No aortic stenosis. * Aortic valve not well visualized. * Trace aortic regurgitation. Mitral Valve * Normal mitral valve structure and function. * No mitral stenosis. * Trace mitral regurgitation. Tricuspid Valve * Normal tricuspid valve structure and function. * No tricuspid stenosis. * Trace tricuspid regurgitation. * Estimated RVSP is 31 mmHg. * Estimated RA pressure is 10 mmHg. * No pulmonary hypertension. Pulmonic Valve * Pulmonic valve not well visualized. * Trace pulmonic regurgitation. * No pulmonic stenosis. Aorta * Normally sized aortic root. Pericardium * The pericardium appears normal. IVC * Normal IVC dimensions and inspiratory collapse. - VTE Documentation of Mechanical Device: Intermittent pneumatic compression device <Catarina Otero - Last Filed: 12/21/17 15:08> (1) Altered mental status Qualifiers: Altered mental status type: unspecified Qualified Code(s): R41.82 - Altered mental status, unspecified (2) Pneumonia Qualifiers: Pneumonia type: aspiration pneumonia Laterality: right Lung location: lower lobe of lung Qualified Code(s): J69.0 - Pneumonitis due to inhalation of food and vomit <Gianluca Chapa - Last Filed: 12/21/17 17:36> (1) Altered mental status Qualifiers: Altered mental status type: unspecified Qualified Code(s): R41.82 - Altered mental status, unspecified (2) Pneumonia Qualifiers: Pneumonia type: aspiration pneumonia Laterality: right Lung location: lower lobe of lung
[2017-12-21] MEDS: Furosemide 20 MG TABLET PO SCH (11:13)
--- NOTE | 2017-12-21 14:01 | Pulmonology Progress Note ---
Date of Encounter: 12/21/17 Time of Encounter: 14:01 Assessment and Plan (1) Acute on chronic respiratory failure with hypoxemia Current Visit: Yes Status: Acute In conclusion this is a 62-year-old gentleman with long-standing history of tobacco and ethanol abuse to presented with altered mental status hyponatremia and evidence of acute on chronic hypoxic hypercapnic respiratory failure. Patient had CTA performed without evidence of filling defect with notable bilateral pleural effusions which are likely secondary to hydrostatic pulmonary edema and I do not suspect that they and themselves are of the cause of his persistent hypoxemia which appears to be worsening even as clinically he appears to be improving at least from standpoint hyponatremia and encephalopathy. To be sure patient has had chronic likely undiagnosed hypoxemia for some time given CTA dimensions of his pulmonary artery as well as what appears to be secondary polycythemia and I am concerned about some degree of shunt physiology which may be related to chronic ethanol abuse leading to the possibility of involvement of the hepatopulmonary syndrome although there is no clear CTA evidence of this but the bilateral lower lobes were not clearly visualized and CTA given the pleural effusion and motion artifact. This can be further evaluated with repeat echocardiogram with bubble study. On physical examination today there is no clear evidence of othrodeoxia or platypnea however In general terms I think more aggressive diuresis would be helpful for this patient as tolerated by his renal function and underlying hyponatremia. This may be a delicate balance. 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 Recs: -Repeat 2-dimensional echocardiogram with bubble study to evaluate for shunt physiology (i have ordered this) -Recommend further evaluation underlying hepatic cirrhosis possibly by ultrasound of the right upper quadrant -IV loop diuretic for goal -1-1.5 L with twice daily monitoring of his renal function and electrolytes defer to primary service and nephrology for further evaluation of this consider stopping LAURO inhibitor in the short-term goal -Start Symbicort 160/4.5 2 puffs twice a day -Continue oxygen supplementation to keep saturation greater than 88% around 92% -Unclear patient has active infection would check pro calcitonin consider stopping antimicrobials as white count is 9 elevated there is no fever and there is at best equivocal radiographic evidence of aspiration -Out of bed to chair incentive spirometry and ambulation as clinically safe to do so and while monitored can all mitigate the effects of VQ mismatching se condary to atelectasis -Chemical DVT prophylaxis unless contraindication -Electrolyte and vitamin/mineral supplementation for chronic ethanol abuse per primary service -Tobacco abuse counseling given Pulmonary will continue to follow (2) Pneumonia Current Visit: Yes Status: Suspected Qualifiers: Pneumonia type: aspiration pneumonia Laterality: right Lung location: lower lobe of lung Qualified Code(s): J69.0 - Pneumonitis due to inhalation of food and vomit (3) Alcohol abuse Current Visit: Yes Status: Chronic (4) Pleural effusion Current Visit: Yes Status: Acute (5) COPD (chronic obstructive pulmonary disease) Current Visit: Yes Status: Acute Qualifiers: COPD type: emphysema Qualified Code(s): J43.2 - Centrilobular emphysema (6) Tobacco abuse Current Visit: Yes Status: Chronic Subjective Principal diagnosis: Hypoxia Interval history: Today he is able answer most of my questions accurately. There is a delay sometimes in processing information and heat as. Confused at times and unable to clearly understand everything that is being told him. There is no evidence of tremulousness however. He was complaining that he had to go to the bathroom (urinate). He denies any cough. Objective PUL Vital signs: Last Vital Signs Temp 98.5 F 12/21/17 05:47 Pulse 92 12/21/17 11:14 Resp 19 12/21/17 05:47 BP 145/84 12/21/17 11:14 Pulse Ox 90 12/21/17 11:14 General appearance: no acute distress Eyes: nonicteric ENT: oropharynx moist Neck: supple Auscultation: bilateral: diminished breath sounds (in lung bases ), other (no wheezes ) Cardiovascular: regular rate and rhythm Gastrointestinal: normoactive bowel sounds Integumentary: normal Extremities: no cyanosis, no edema, no clubbing Musculoskeletal: no deformities non-focal exam, pupils equal and round mood appropriate Results - Laboratory Findings CBC and BMP: 12/21/17 05:52 12/21/17 05:52 ABG ABG pH 7.33 pH Units (7.32-7.45) 12/19/17 04:18 ABG pCO2 64 mmHg (35-45) H 12/19/17 04:18 ABG pO2 85 mmHg (85-104) 12/19/17 04:18 ABG O2 Saturation 95 % (95-98) 12/19/17 04:18 PT/INR, D-dimer PT 14.5 Seconds (9.4-12.1) H 12/19/17 02:26 D-Dimer 1385 ng/mLFEU (0-500) H 12/19/17 02:26 Abnormal lab findings: Abnormal lab results RBC 5.54 M/mcL (4.19-5.50) H 12/21/17 05:52 Hct 52.7 % (37.5-50.1) H 12/21/17 05:52 RDW 15.0 % (11.5-14.5) H 12/21/17 05:52 Lymphocytes # 0.5 K/mcL (0.6-4.6) L 12/21/17 05:52 Monocytes # 1.4 K/mcL (0.0-1.3) H 12/21/17 05:52 Nucleated RBCs/100 WBC 0.3 /100 WBC (0) H 12/21/17 05:52 PT 14.5 Seconds (9.4-12.1) H 12/19/17 02:26 D-Dimer 1385 ng/mLFEU (0-500) H 12/19/17 02:26 ABG pCO2 64 mmHg (35-45) H 12/19/17 04:18 ABG HCO3 34 mEq/L (21-27) H 12/19/17 04:18 ABG Total CO2 36 mEq/L (20-26) H 12/19/17 04:18 ABG Base Excess 4 mEq/L (-2 to 3) H 12/19/17 04:18 Sodium 132 mEq/L (136-145) L 12/21/17 05:52 Chloride 90 mEq/L (98-107) L 12/21/17 05:52 Carbon Dioxide 39 mEq/L (23-29) H 12/21/17 05:52 BUN 3 mg/dL (8-23) L 12/21/17 05:52 Creatinine 0.44 mg/dL (0.70-1.30) L 12/21/17 05:52 Serum Osmolality 256 mOsm/kg (280-300) L 12/19/17 02:26 Calculated Osmolality 271 (280-300) L 12/21/17 05:52 Calcium 7.8 mg/dL (8.6-10.3) L 12/21/17 05:52 Phosphorus 4.9 mg/dL (2.7-4.5) H 12/19/17 01:52 Ammonia 54 mcmol/L (16-53) H 12/19/17 03:56 Serum Total Protein 5.3 g/dL (6.4-8.9) L 12/19/17 01:52 Albumin 3.3 g/dL (3.5-5.7) L 12/19/17 01:52 Globulin 2.0 g/dL (2.4-3.5) L 12/19/17 01:52 Salicylates < 2.5 mg/dL (15.0-30.0) L 12/19/17 03:56 Acetaminophen < 10 mcg/mL (10-20) L 12/19/17 03:56 - Diagnostic Findings Chest x-ray: report reviewed, image reviewed CT scan - chest: report reviewed, image reviewed - Clinical Findings Intake & Output: Intake & Output 12/20/17 12/21/17 12/21/17 23:59 07:59 15:59 Intake Total 340 / 340 400 / 400 360 / 360 Output Total 850 / 850 800 / 800 1825 / 1825 Balance -510 / -510 -400 / -400 -1465 / -1465 Weight 86.8 kg - VTE Documentation of Mechanical Device: Intermittent pneumatic compression device Consult Discharge Plan - Plan [facility]errals: [facility] [Primary Care Provider] -
[2017-12-21] MEDS: Vitamin B Complex/Vit C/Vit E 1 EACH TABLET PO SCH (15:18)
[2017-12-21] MEDS: Folic Acid 1 MG TABLET PO SCH (15:18)
[2017-12-21] MEDS: Thiamine (B-1) 100 MG TABLET PO SCH (15:18)
[2017-12-21] MEDS: Ipratropium/Albuterol Neb 3 ML IH SCH ×3 (15:50→23:37)
--- NOTE | 2017-12-21 19:54 | Electrocardiograph Report ---
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
[2017-12-21] MEDS: Budesonide/Formoterol 160/4.5 1 PUFF INH IH SCH (20:42)
[2017-12-22] MEDS: *HR* Heparin 5,000 UNIT/ML VIAL SQ SCH ×2 (00:45→09:40)
[2017-12-22] MEDS: Ampicillin/Sulbactam 1,500 MG in 0.9 % Sodium Chloride Mini Bag 100 ML IVPB SCH ×3 (01:15→12:48)
[2017-12-22] MEDS: Ipratropium/Albuterol Neb 3 ML IH SCH ×6 (04:29→23:31)
[2017-12-22 06:12] LABS: Basophils % 0.3 %; Eosinophils % 0.4 %; Hematocrit 51.8 % (37.5-50.1); Hemoglobin 16.6 g/dL (12.9-16.9); Immature Granulocytes % 0.6 % (0-4); Lymphocytes # 0.6 K/mcL (0.6-4.6); Lymphocytes % 5.1 %; Mean Corpuscular Volume 93.7 fL (83.0-100.0); Mean Platelet Volume 9.7 fL (9.4-12.4); Monocytes # 1.6 K/mcL (0.0-1.3); Monocytes % 14.5 %; Neutrophils # 8.6 K/mcL (1.6-8.9); Platelet Count 200 K/mcL (140-400); Red Blood Count 5.53 M/mcL (4.19-5.50); Red Cell Distribution Width 14.7 % (11.5-14.5); Segmented Neutrophils % 79.1 %
--- NOTE | 2017-12-22 06:53 | Pulmonology Progress Note ---
Date of Encounter: 12/22/17 Time of Encounter: 06:53 Assessment and Plan (1) Acute on chronic respiratory failure with hypoxemia Current Visit: Yes Status: Acute I suspect this is multifactorial including hydrostatic pulmonary edema likely cardiac in etiology possibly complicated by underlying chronic liver disease affecting the lung (hepatopulmonary syndrome or less likely portal pulmonary hypertension)- recommend continuation of diuresis as tolerated by kidney and sodium levels. He is scheduled for liver ultrasound and hopefully echocardiogram with bubble study to evaluate for shunt - in this case would be more suspecting a delayed shunt which would be more indicative of chronic liver disease affecting the lung Patient does have underlying COPD but no clear evidence of COPD exacerbation on physical examination a short burst of steroids is not unreasonable in this situation. Equivocal findings for pneumonia I would defer to the primary medicine service for decision on antimicrobial therapy Continue supplemental oxygen to keep saturation greater than 88% Continue DVT prophylaxis Pulmonary will continue to follow (2) Pneumonia Current Visit: Yes Status: Suspected Qualifiers: Pneumonia type: aspiration pneumonia Laterality: right Lung location: lower lobe of lung Qualified Code(s): J69.0 - Pneumonitis due to inhalation of food and vomit (3) Alcohol abuse Current Visit: Yes Status: Chronic (4) Pleural effusion Current Visit: Yes Status: Acute (5) COPD (chronic obstructive pulmonary disease) Current Visit: Yes Status: Acute Qualifiers: COPD type: emphysema Qualified Code(s): J43.2 - Centrilobular emphysema (6) Tobacco abuse Current Visit: Yes Status: Chronic Subjective Principal diagnosis: Hypoxia Interval history: Today he is able answer most of my questions accurately. He is getting radiated down for a right upper quadrant ultrasound. He says his breathing is about the same he feels little more congested today. No fevers or chills remains on high flow oxygen and 10-12 L Objective PUL Vital signs: Last Vital Signs Temp 98.1 F 12/22/17 03:49 Pulse 90 12/22/17 03:49 Resp 17 12/22/17 04:29 BP 138/80 12/22/17 03:49 Pulse Ox 94 12/22/17 04:29 General appearance: no acute distress Eyes: nonicteric Effort: normal Auscultation: bilateral: diminished breath sounds, rales Cardiovascular: regular rate and rhythm Gastrointestinal: normoactive bowel sounds, soft, non-tender Integumentary: normal Extremities: edema (Trace lower extremity edema) Musculoskeletal: no deformities non-focal exam mood appropriate Results - Laboratory Findings CBC and BMP: 12/22/17 05:30 12/22/17 05:30 ABG ABG pH 7.33 pH Units (7.32-7.45) 12/19/17 04:18 ABG pCO2 64 mmHg (35-45) H 12/19/17 04:18 ABG pO2 85 mmHg (85-104) 12/19/17 04:18 ABG O2 Saturation 95 % (95-98) 12/19/17 04:18 PT/INR, D-dimer PT 14.5 Seconds (9.4-12.1) H 12/19/17 02:26 D-Dimer 1385 ng/mLFEU (0-500) H 12/19/17 02:26 Abnormal lab findings: Abnormal lab results RBC 5.53 M/mcL (4.19-5.50) H 12/22/17 05:30 Hct 51.8 % (37.5-50.1) H 12/22/17 05:30 RDW 14.7 % (11.5-14.5) H 12/22/17 05:30 Monocytes # 1.6 K/mcL (0.0-1.3) H 12/22/17 05:30 Nucleated RBCs/100 WBC 0.3 /100 WBC (0) H 12/21/17 05:52 PT 14.5 Seconds (9.4-12.1) H 12/19/17 02:26 D-Dimer 1385 ng/mLFEU (0-500) H 12/19/17 02:26 ABG pCO2 64 mmHg (35-45) H 12/19/17 04:18 ABG HCO3 34 mEq/L (21-27) H 12/19/17 04:18 ABG Total CO2 36 mEq/L (20-26) H 12/19/17 04:18 ABG Base Excess 4 mEq/L (-2 to 3) H 12/19/17 04:18 Sodium 132 mEq/L (136-145) L 12/21/17 05:52 Chloride 90 mEq/L (98-107) L 12/21/17 05:52 Carbon Dioxide 39 mEq/L (23-29) H 12/21/17 05:52 BUN 3 mg/dL (8-23) L 12/21/17 05:52 Creatinine 0.44 mg/dL (0.70-1.30) L 12/21/17 05:52 Serum Osmolality 256 mOsm/kg (280-300) L 12/19/17 02:26 Calculated Osmolality 271 (280-300) L 12/21/17 05:52 Calcium 7.8 mg/dL (8.6-10.3) L 12/21/17 05:52 Phosphorus 4.9 mg/dL (2.7-4.5) H 12/19/17 01:52 Ammonia 54 mcmol/L (16-53) H 12/19/17 03:56 Serum Total Protein 5.3 g/dL (6.4-8.9) L 12/19/17 01:52 Albumin 3.3 g/dL (3.5-5.7) L 12/19/17 01:52 Globulin 2.0 g/dL (2.4-3.5) L 12/19/17 01:52 Salicylates < 2.5 mg/dL (15.0-30.0) L 12/19/17 03:56 Acetaminophen < 10 mcg/mL (10-20) L 12/19/17 03:56 - Clinical Findings Intake & Output: Intake & Output 12/21/17 12/21/17 12/22/17 15:59 23:59 07:59 Intake Total 460 / 460 100 / 100 100 / 100 Output Total 2525 / 2525 1175 / 1175 1560 / 1560 Balance -2065 / -2065 -1075 / -1075 -1460 / -1460 Weight 83.1 kg - VTE Documentation of Mechanical Device: Intermittent pneumatic compression device Consult Discharge Plan - Plan [facility]errals: [facility] [Primary Care Provider] -
[2017-12-22] MEDS ORDERED: Aminoglycoside Consult 1 EACH MC ONE (07:31)
[2017-12-22] MEDS: Budesonide/Formoterol 160/4.5 1 PUFF INH IH SCH ×2 (07:51→20:01)
[2017-12-22 08:03] LABS: BUN/Creatinine Ratio 45 (6-26); Blood Urea Nitrogen 18 mg/dL (8-23); Calcium 8.7 mg/dL (8.6-10.3); Carbon Dioxide 36 mEq/L (23-29); Chloride 91 mEq/L (98-107); Glucose 106 mg/dL (70-105); Osmolality,Calculated 274 (280-300); Potassium 4.6 mEq/L (3.5-5.1); Sodium 131 mEq/L (136-145); eGFR For Non-African Americans > 60 (> 60)
--- NOTE | 2017-12-22 08:40 | Internal Med Progress Note ---
<Catarina Otero - Last Filed: 12/22/17 15:23> Hospitalist Progress Note - Encounter Date of Encounter: 12/22/17 - Exam Vitals: Temp Pulse Resp BP Pulse Ox 98.1 F 97 16 110/69 97 12/22/17 03:49 12/22/17 11:51 12/22/17 11:28 12/22/17 11:51 12/22/17 11:51 - Assessment and Plan (1) Altered mental status Current Visit: Yes Status: Resolved (2) Pneumonia Current Visit: Yes Status: Suspected (3) Hyponatremia Current Visit: Yes Status: Acute (4) Alcohol abuse Current Visit: Yes Status: Chronic (5) Pleural effusion Current Visit: Yes Status: Acute (6) Pulmonary HTN Current Visit: Yes Status: Suspected (7) Acute respiratory failure with hypoxia Current Visit: Yes Status: Acute (8) Tobacco abuse Current Visit: Yes Status: Chronic - Time Spent with Patient Total time spent is greater than 50% in coordination of care (as documented) at patient's floor/unit and/or counseling patient: Internal Medicine: Result - Labs CBC & Chem 7: 12/22/17 05:30 12/22/17 14:04 Labs: Short CBC 12/22/17 Range/Units 05:30 WBC 10.9 (4.3-11.1) K/mcL Hgb 16.6 (12.9-16.9) g/dL Hct 51.8 H (37.5-50.1) % Plt Count 200 (140-400) K/mcL Neutrophils # 8.6 (1.6-8.9) K/mcL BMP 12/22/17 12/22/17 05:30 14:04 Sodium 131 L 132 L Potassium 4.6 4.7 Chloride 91 L 94 L Carbon Dioxide 36 H 33 H BUN 18 27 H Creatinine 0.40 L 0.51 L Glucose 106 H 107 H Calcium 8.7 8.4 L - ABG Interpretation ABG results: ABG ABG pH 7.33 pH Units (7.32-7.45) 12/19/17 04:18 ABG pCO2 64 mmHg (35-45) H 12/19/17 04:18 ABG pO2 85 mmHg (85-104) 12/19/17 04:18 ABG O2 Saturation 95 % (95-98) 12/19/17 04:18 PT/INR, D-dimer PT 14.5 Seconds (9.4-12.1) H 12/19/17 02:26 D-Dimer 1385 ng/mLFEU (0-500) H 12/19/17 02:26 - Impressions Impressions Echocardiogram Limited Views 12/21/17 14:21 Impressions: There is a small PFO/ASD by color Doppler and agitated saline contrast. LVEF 65-70%. Mildly dilated right ventricle with normal function. Mildly dilated left atrium and right atrium. Left Ventricular Wall Motion: Rest Echo Findings All wall segments showed normal motion. Findings: Study Quality * Technically adequate exam. Left Ventricle * LVEF 65-70%. * Normal LV chamber size, wall thickness and function. Right Ventricle * Mildly dilated right ventricle with normal function. Interatrial Septum * PFO with Bidirectional shunt. * There is a small PFO/ASD by color Doppler and agitated saline contrast. Left Atrium * Mildly dilated left atrium. Right Atrium * Mildly dilated right atrium. Chest X-Ray 12/22/17 04:00 IMPRESSION: Increase in size of a now small to moderate right pleural effusion. Bibasilar infiltrates, most compatible with pneumonia, remain similar. D/ / Robby Newby MD / Robby Newby MD Interpreting Provider: Robby Newby MD Liver Ultrasound 12/22/17 08:00 IMPRESSION: Mildly coarsened hepatic echotexture of uncertain significance. Correlation with laboratory values may be helpful in further characterization. Contracted gallbladder containing an echogenic focus representing a stone or polyp. Simple right renal cyst. D/ / Reuben Dunn / Reuben Dunn Interpreting Provider: Reuben Dunn Consult Discharge Plan - Plan [facility]errals[facility] [Primary Care Provider] - - Attending Attestation I examined this patient and my medical decision-making was reviewed with the Resident Physician Dr Chapa. I agree with the documented findings, disposition and treatment plan as described except to the extent set forth below/addl details below. Mr Crowder is currently admitted for resp failure and initially presumed aspiration pneumonia and altered mental status with hyponatremia and hypoxia. Pulmonology is following. He has chronic etoh use has begun to withdraw this admission. On 12/22 he was noted to have a black bm with work up begun. awake in bed. While he was confused for resident he was alert and oriented answering all questions appropriate on my exam. He is somehwat anxious appearing and notes slight tremor in the hands. He was educated that he is likely beginning etoh withdrawal. RN at bedside. He is sob with exertion but not sob at rest on high flow NC. No cough, wheezing or sputum. Denies fevers or chills. no abd pain, nausea or emesis. gen- alert, awake,appears stated age, wide eyed and anxious appearing eyes- pupils equal round , no scleral icterus, no conjunctival pallor cv- reg rate and rhythm, normal s1,s2, no murmurs appreciated 1+ pitting bl le edema lungs- right base crackles and decreased bs, left bose are clear, no wheezing, rhonchi throughout, normal resp effor ton high flow NC abd- soft, non tender, non distended, + bs neuro- AAOx3, CN grossly intact, fine bl hand tremor Acute hypoxic and hypercarbic Resp failure 2/2 pleural effusion Possible aspiration Pneumonia though without identifiable organism and further work up, less likely, Possible shunting related to his etoh use CTA without PE or clear consolidation imaging has consistently shown right sided effusion, now worsened on cxr 12/22 -pulm following, checked echo with bubble and small pfo/asd with mild atrial enlargement and normal eF, check procalcitonin which is send out and remains pending -per pulm, this looks far less likely infectious picture and may consider stopping abx -we will stop abx today as no wbc elevation, fever, cough or sputum, legionella/strep neg--and monitor closely -pulm agrees with short course burst of steroids which he is on--can anticipate wbc elevation in upcoming day -with hx emphysema- started symbicort -elevator serviceman following -cont high flow, increase diuresis for worsening effusion, if not good effect may need pulm to re eval if enough fluid to do thoracentesis -nebs -check abg if any mental status changes ETOH abuse - ciwa,beginning to withdraw, tele, monitor lytes -check ruq us and coarse non specific echogenic texture to liver of unclear significance -gi consulted Hyponatremia-previous provider suspected related to beer potomania and responded to gentle IVFS and was euvolemic On my taking over of case he appears to be hypervolemic with effusion and bl le edema correction over first 24 hrs at goal rate -no further ivfs -diuresis increased today and fu morning na level--confusion as noted by resident is not likely to be related to na level in my assessment but rather anxiety related to etoh withdrawal RLE edema - cta no pe and dimer elevated at admission, given unequal edema check RLE venous doppler and neg Later in day episode of black stool was noted by rn -fobt +, not anemic, will cont to monitor hgb, stop hep sq and place on scds, stop home asa, consult gi, IV PPI Further diagnoses and plan as documented by resident. <Gianluca Chapa - Last Filed: 12/22/17 19:38> Hospitalist Progress Note - Encounter Date of Encounter: 12/22/17 Time of Encounter: 09:00 - Subjective Interval History: 12/22 Saw Mr Crowder at the bedside . He appears to be relatively more confused than yesterday, went again to assess his mentation three hours later and he appeared to be alert and awake. Endorses no headache, tremors or hallucination. Recent CIWA score 5. Continues to be on PO thiamine, folate, vitamins for his alcohol withdrawal. Most recent chest x-ray showed increasing small to moderate right-sided pleural effusion, increased his Lasix from PO 20 to PO 40. On Symbicort 2 puffs twice a day for his baseline emphysema. Afebrile, non- leukocytotic, continues to require 10 L of high flow oxygen to maintain his sats. He clinically does not appear to have pneumonia, therefore we might disc ontinue his Unasyn 12/21 Told Mr. Crowder's nurse to give him a cup so we can do a sputum culture on him. Patent is satting on 10 L at 94%, endorses no worsening cough, SOB, or productive sputum. I am going to get a CXR tomorrow morning on him . patient is on day 1 of unasyn for concerns for Asp Pneumonia. 12/20 Saw Mr. Crowder at the bedside this morning. Patient endorses no acute distress . The sodium levels is 133 as of this morning patient was 121 on admission. He was given IV fluids with total intake of 4.5 L. Most chest x-ray showed increased opacification of the right mid to lower lung as well as the left lung base. With his history of alcohol abuse there is a concern for aspiration pneumonia. Patient completed his 3 day course of Zosyn, and will start him on Unasyn for her Aspiration PNA. Patient's Echocardiogram showed no evidence of any valvular and cardiac abnormalities. 12/19 Mr. Crowder is a 61-year-old male who was admitted to the floor because of altered mental status, hyponatremia (121) and evidence of bilateral pleural effusion (more on R). Patient is currently A& O 3 when I met him, sluggish in his speech but is able to comprehend everything. Denies no acute distress. According to patient's fiancee, patient has been 'acting different' for the past 1 week. Most recent sodium is 124, currently on gentle hydration (0.9% NaCl) . BiPAP FiO2: 60%, IPAP: 14, EPAP: 7. Pulmonology did a bedside ultrasound on him and the fluid pocket was not optimal enough for thoracentesis. Currently on gentle diuresis for his pleural effusion. Kidney function looks normal. - Exam Vitals: Temp Pulse Resp BP Pulse Ox 98.1 F 92 16 116/63 97 12/22/17 03:49 12/22/17 07:00 12/22/17 07:51 12/22/17 07:00 12/22/17 07:51 Exam: GENERAL: Well-developed, well-nourished adult male. A&O *3 HEENT: Atraumatic and normocephalic. Currently receiving BiPAP therapy. Face marcelino ears erythematous. CARDIOVASCULAR: Regular rate and rhythm. S1 and S2 present. No murmurs, gallops, or rubs appreciated. RESPIRATORY: decreased breath sounds on the Right lung base GASTROINTESTINAL: Active bowel sounds 4 quadrants. Abdomen is soft and nondistended. No organomegaly noted. EXTREMITIES: No clubbing or cyanosis. 1+ bilateral lower extremity pitting edema that is slightly worse on the right. SKIN: Warm, dry, and intact. NEUROLOGIC: No cranial nerve deficits, sensory or motor function intact, - Assessment and Plan (1) Altered mental status Current Visit: Yes Status: Resolved Assessment and Plan: - Patient was transferred with altered mental status which is likely mulifactorial in nature : likely due to hyponatremia (Na 121 -> 132), was also hypercarbic on ABG, mildly elevated ammonia (54). no evidence of intracranial abnormality on head CT. TSH, B12 WNL, urology toxicology screen negative - No Evidence of asterixis on physical exam. Non-Tremulous in extremities. No evidence of DT. CIWA score : 1 - On Physical exam he appears to be a little more confused than yesterday. - On thaimine, vitamin/minerals for chronic EtOH use (2) Pneumonia Current Visit: Yes Status: Suspected Assessment and Plan: - Patient has a history of extensive alcohol abuse. According to his fiancee he has been drinking since he was 14. -Recent Chest x-ray was concerning for a right lower lobe pneumonia, which fits the picture of aspiration pneumonia. Patient's respiratory infection panel was negative - Clinically patient does not appear to have symptoms of pneumonia. No egophony or tactile fremitus appreciated. Therefore, we discontinued his Unasyn. - Currently on 10L high flow oxygen. (3) Hyponatremia Current Visit: Yes Status: Acute Assessment and Plan: - likely due to beer potomania, urine osmolarity (449) is higher than serum osmolarity (256). urine sodium > 40 (69) . suggesting volume status to be more euvolemic initially but currently patient is hypervolemic owing to administration of 6.8 L of IVF - Patient responded well to gentle hydration Most recent sodium is 131. Hold off on further hydration because of pleural effusion. - Administration of diuretic has to be a delicate balance between diminishing patient's effusion and keeping his sodium levels in control - (4) Alcohol abuse Current Visit: Yes Status: Chronic Assessment and Plan: -Patient has a history of alcohol abuse. As per his fiancee patient has been drinking since he was 14. Patient endorses that he drinks 6 can of 24 ounces beer every day - Physical exam he was not agitated, A&O *3, no evidence of DTs however he does appear to a little confused - Currently on PO thiamine and vitamins/minerals . Monitor his magnesium level tomorrow morning. Continue to monitor his electrolytes . (5) Pleural effusion Current Visit: Yes Status: Acute Assessment and Plan: - Etiology currently unknown. Highly unlikely hepatic hydrothorax secondary to cirrhosis, because of normal transaminases, bilirubin. Although he does have mildly elevated ammonia (54) - Bedside ultrasound yesterday on Wednesday, showed the fluid pocket that was not optimal for a thoracentesis. Repeat chest x-ray thia AM showed moderate right- sided pleural effusion, continue monitoring the respiratory status of the patient and might need bronchoscopy if his respiratory status worsens -Is due to diuresis regimen from 40 PO daily as per pulmonology. Monitor kidney function (6) Pulmonary HTN Current Visit: Yes Status: Suspected Assessment and Plan: - Suspected pulmonary hypertension by the radiological criteria. Likely grade 3 secondary to undiagnosed COPD. however echocardiogram did not show any evidence of pulmonary hypertension - It would be reasonable to follow-up with a manager of construction as an outpatient to further work it up (7) Acute respiratory failure with hypoxia Current Visit: Yes Status: Acute Assessment and Plan: Likely due to pleural effusion on the most recent chest x-ray. Patient also has an extensive history of smoking. -Requiring 10 L of high flow oxygen to maintain his stats. -Owing his baseline emphysema, patient is on scheduled DuoNeb's and Symbicort 2 puffs twice a day. Pulmonology following (8) Tobacco abuse Current Visit: Yes Status: Chronic Assessment and Plan: -Patient has a history of extensive tobacco abuse. Consult on smoking cessation. - Time Spent with Patient Total time spent is greater than 50% in coordination of care (as documented) at patient's floor/unit and/or counseling patient: Internal Medicine: Result - Labs CBC & Chem 7: 12/22/17 18:00 12/22/17 14:04 Labs: Short CBC 12/22/17 Range/Units 05:30 WBC 10.9 (4.3-11.1) K/mcL Hgb 16.6 (12.9-16.9) g/dL Hct 51.8 H (37.5-50.1) % Plt Count 200 (140-400) K/mcL Neutrophils # 8.6 (1.6-8.9) K/mcL BMP 12/22/17 05:30 Sodium 131 L Potassium 4.6 Chloride 91 L Carbon Dioxide 36 H BUN 18 Creatinine 0.40 L Glucose 106 H Calcium 8.7 - ABG Interpretation ABG results: ABG ABG pH 7.33 pH Units (7.32-7.45) 12/19/17 04:18 ABG pCO2 64 mmHg (35-45) H 12/19/17 04:18 ABG pO2 85 mmHg (85-104) 12/19/17 04:18 ABG O2 Saturation 95 % (95-98) 12/19/17 04:18 PT/INR, D-dimer PT 14.5 Seconds (9.4-12.1) H 12/19/17 02:26 D-Dimer 1385 ng/mLFEU (0-500) H 12/19/17 02:26 - Impressions Impressions Chest X-Ray 12/22/17 04:00 IMPRESSION: Increase in size of a now small to moderate right pleural effusion. Bibasilar infiltrates, most compatible with pneumonia, remain similar. D/ / Robby Newby MD / Robby Newby MD Interpreting Provider: Robby Newby MD - VTE Documentation of Mechanical Device: Intermittent pneumatic compression device <Catarina Otero - Last Filed: 12/22/17 15:23> (1) Altered mental status Qualifiers: Altered mental status type: unspecified Qualified Code(s): R41.82 - Altered mental status, unspecified (2) Pneumonia Qualifiers: Pneumonia type: aspiration pneumonia Laterality: right Lung location: lower lobe of lung <Gianluca Chapa - Last Filed: 12/22/17 19:38> (1) Altered mental status Qualifiers: Altered mental status type: unspecified Qualified Code(s): R41.82 - Altered mental status, unspecified (2) Pneumonia Qualifiers: Pneumonia type: aspiration pneumonia Laterality: right Lung location: lower lobe of lung
[2017-12-22] MEDS: Furosemide 40 MG TABLET PO SCH (09:39)
[2017-12-22] MEDS: Vitamin B Complex/Vit C/Vit E 1 EACH TABLET PO SCH (09:39)
[2017-12-22] MEDS: Metoprolol XL (24 HR) Succ 50 MG TAB.ER.24H PO SCH (09:40)
[2017-12-22] MEDS: Aspirin Enteric Coated 81 MG Tablet PO SCH (09:40)
[2017-12-22] MEDS: Multivit/Ca/Min/Fe/FA 1 TAB TABLET PO SCH (09:40)
[2017-12-22] MEDS: Lisinopril 20 MG TABLET PO SCH (09:40)
[2017-12-22] MEDS: Cholecalciferol (D-3) 1,000 UNIT TABLET PO SCH (09:40)
[2017-12-22] MEDS: Thiamine (B-1) 100 MG TABLET PO SCH (09:40)
[2017-12-22] MEDS: Folic Acid 1 MG TABLET PO SCH (09:41)
[2017-12-22] MEDS: amLODIPine 5 MG TABLET PO SCH (09:41)
[2017-12-22 14:36] LABS: BUN/Creatinine Ratio 53 (6-26); Blood Urea Nitrogen 27 mg/dL (8-23); Calcium 8.4 mg/dL (8.6-10.3); Carbon Dioxide 33 mEq/L (23-29); Chloride 94 mEq/L (98-107); Glucose 107 mg/dL (70-105); Osmolality,Calculated 280 (280-300); Potassium 4.7 mEq/L (3.5-5.1); Sodium 132 mEq/L (136-145); eGFR For Non-African Americans > 60 (> 60)
[2017-12-22] MEDS ORDERED: 0.9 % Sodium Chloride 1,000 ML ONE (15:25)
[2017-12-22] MEDS ORDERED: 0.9 % Sodium Chloride 1,000 ML IVC ONE (15:32)
[2017-12-22 15:42] LABS: Hematocrit 42.3 % (37.5-50.1)
[2017-12-22 15:47] LABS: Hemoglobin 13.5 g/dL (12.9-16.9)
[2017-12-22 16:38] LABS: Hematocrit 39.6 % (37.5-50.1); Hemoglobin 12.8 g/dL (12.9-16.9)
[2017-12-22] MEDS ORDERED: 0.9 % Sodium Chloride 500 ML ONE (16:55)
[2017-12-22] MEDS ORDERED: 0.9 % Sodium Chloride 500 ML IVC ONE (16:57)
[2017-12-22] MEDS ORDERED: Pantoprazole 40 MG VIAL IVP SCH (18:00)
[2017-12-22] MEDS ORDERED: *HR* Norepinephrine 4 MG/4 ML VIAL IVC ONE (18:24)
[2017-12-22] MEDS ORDERED: D5% in Water 250 ML ONE (18:25)
[2017-12-22 18:32] LABS: Hematocrit 36.9 % (37.5-50.1); Hemoglobin 11.8 g/dL (12.9-16.9)
[2017-12-22] MEDS ORDERED: *HR* FentaNYL (PF) 100 MCG/2 ML VIAL ONE (19:01)
[2017-12-22] MEDS ORDERED: *HR* Midazolam HCl 5 MG/5 ML VIAL IVP ONE ×2 (19:02→19:56)
--- NOTE | 2017-12-22 19:10 | Event Note ---
<Gianluca Chapa - Last Filed: 12/22/17 19:35> Date of Encounter: 12/22/17 Time of Encounter: 19:00 Received call from the nurse for Mr. Crowder at 3:24 PM that his blood pressure was 68/42. He was awake and alert. I told nurse to give him a liter of 0.9% sodium chloride bolus. Repeat blood pressure was 80/40. Nurse re-texted me stating that patient also had 500 mL of water diarrhea with some bright red blood this time. I called the paging center to speak to GI merchandising consultant and then had them connect me to the physician merchandising consultant for the GI bleed. Another 500 mL bolus was given to the patient, patient continued to be hypotensive with systolics been 80s and 90s. I spoke to the Nurse also told me that patient has had 2 or 3 more episodes of bloody bowel since afternoon. I went and checked and the nature of the bowel was watery and more dark red as opposed to 'bright red' in nature. I Ordered for a stat H&H, which was 12.8. Since the patient has an extensive history of alcohol abuse, I was concerned about potential esophageal varices or a Lea-Jj tear-like picture contributing to his melena. Jyothi sebastian has no known documentation of any EGD/ Colonoscopy here at the [facility]. I included sepsis in the differential because patient was being treated for pneumonia, although he was not leukocytotic, afebrile, with no clear source of infection. With his blood pressure not normalizing, we decided to put a central catheter in him as transfer to ICU for further management. <Catarina Otero - Last Filed: 12/23/17 18:00> Date of Encounter: 12/23/17
--- NOTE | 2017-12-22 19:17 | Event Note ---
Date of Encounter: 12/22/17 Time of Encounter: 16:30 Pt with sudden drop in BP to 60s/40s and large output of melenotic stool. IVF boluses and stat hgb check which was stable. Multiple attempts to reach GI national sales consultant without call back. After 5 received call from GIB reading intervention teacher Dr Vazquez and updated to situation. Given large urine outpt with diuresis giveing back iVFs without sig improvement, transfer to ICU, CVC placement and pressor to be initatied in regards to UGIB he is already on ppi iv, npo, type and screened- serial h/hs and prbc as needed less likely sepsis will will treat as such and cover with broadened abx and ivfs/pressor as above I have personally discussed case with Dr Vazquez and appreciate his input and intervention I have personally discussed ith his family at bedside as well. they understand he may have worsened effusion with fluids and has a potential to require bipap/ventilation if resp status decompensates. Pulm critical care consult placed.
[2017-12-22] MEDS: Norepinephrine 4 MG in D5% in Water 250 ML IVC SCH ×2 (19:30→22:36)
[2017-12-22] MEDS ORDERED: *HR* EPINEPHrine 1 MG/ML AMPUL ONE ×3 (19:36→19:41)
--- NOTE | 2017-12-22 19:43 | Procedure Note ---
Date of procedure: 12/22/17 Pre-op diagnosis: hypovolemic shock Post-op diagnosis: same Procedure: Written consent was obtained, patient was placed in supine position and the area was prepped and draped in a sterile fashion. The area over the right IJ was anesthetized using 3cc's of 1% lidocaine. Using the sonosite, the IJ was identified, and a cook needle was used to cannulate the vein. Dark, non- pulsatile blood was seen. Using the Seldinger technique, a guidewire was passed through the needle and the needle was withdrawn. A small incision was made and a dilator sheath was then passed over the guidewire and then removed. The catheter was then placed as the guidewire was removed. The catheter was then sutured in place. All 3 ports had good return, and flushed with normal saline easily. The patient tolerated the procedure well. A post-procedure chest x-ray looked unremarkable. Anesthesia: local Surgeon: Gianluca Chapa Was there an assistant corporate secretary present: Yes Nurse Sitter: Farhan Mena Estimated blood loss (cc): 3 Specimen: none Pathology: none sent Condition: critical Disposition: ICU
[2017-12-22] MEDS ORDERED: Simethicone 40 MG/0.6 ML MLS IR ONE (19:56)
[2017-12-22] MEDS ORDERED: Tetracaine/Benzocaine/Butamben 1 SPRAY AEROSOL MM ONE (19:56)
[2017-12-22] MEDS ORDERED: *HR* FentaNYL (PF) 100 MCG/2 ML VIAL IVP ONE (19:56)
--- NOTE | 2017-12-22 20:18 | General Surgery Consult Note ---
Date of Encounter: 12/22/17 Time of Encounter: 18:00 History of Present Illness Consult date: 12/22/17 Reason for consult: other (GI hemorrhage) Requesting physician: Gianluca Chapa History of present illness: General Surgery - GI coverage Called to see patient for evidence of active GI bleed. Consultation had been placed with but the consulting physicians did not speak to Dr Garrison nor does it appear they were able to reach him. The patientis has been urgently referred for melena, hypotension, and hemoglobin falling from 16.6-11.8. The patient has a known history of heavy alcohol and tobacco abuse. On presentation the bedside, the patient was awake and alert with a blood pressure approximately 66 systolic. A central line was being placed via the right internal jugular. Was secured, the patient was transferred to intensive care for further evaluation and treatment. Norepinephrine had been initiated. Past medical history: Medical records indicate a prior history of hypertension and hyperlipidemia. Surgical history: The patient denies any previous surgeries Allergies: No known drug allergies Medications: Amlodipine 10 mg by mouth daily Aspirin 81 mg by mouth daily Atorvastatin 40 mg by mouth daily at bedtime Cholecalciferol 1000 units by mouth daily Lisinopril 40 mg by mouth daily Metoprolol 100 mg by mouth daily Multivitamin (80 through Z selectman 50+ tablet) 1 tab by mouth daily Tamsulosin 0.4 mg by mouth daily Social history: Patient admits to 1/2-2 packs per day for the past 50 years (he started smoking at age 12) Patient indicates that he consumes 5 24 ounce beers daily. He denies any illicit drug use but admits to marijuana use in the remote past. On physical examination: 62-year-old patient who appears older than his stated age. Vital signs heart rate approximately 107, blood pressure 103 systolic on Levophed; respirations 16, SPO2 on 10 L/m ranging 91-95% Lungs: Diminished bilateral breath sounds but otherwise clear Cardiac: Rate was rapid and did not detect any murmurs Abdomen: Soft, nontender Rectal: Black melenic stool evident Impression: 62-year-old patient transferred from [facility] after presenting there with agitation and once the agitation was controlled severe somnolence and change in mental status. He was notably hypoxic. Evaluation including x-rays demonstrated bilateral pleural effusions and evidence of a right lower lobe opacification/pneumonia. His were concerning for aspiration. Patient was transferred to [facility] for further care on 12/19/17. As of this date, 12/22/17, the patient demonstrates copious black tarry stool with falling hemoglobin consistent with an upper GI bleed. Dr Garrison was consulted but not reached. Due to continued melena and hypotension I was contacted emergently. The patient's situation was discussed with Dr. Chapa and Dr Otero. I was able to discuss the situation with the patient. An EGD is recommended. Risks include hemorrhage, hypotension, respiratory failure requiring mechanical ventilation, and failure to control the patient's symptoms. The patient expressed understanding. Surgical consent was obtained. Plan: EGD in the ICU using IV meds. Past Med Surg Social Fam HX - Past Medical History Medical history: hyperlipidemia, hypertension Additional medical history: etoh abuse - Social History Smoking Status: Current every day smoker Smokeless Tobacco Status: No Alcohol use: heavy Drug use: none Medications and Allergies Amlodipine Besylate 10 mg PO DAILY 12/19/17 [History] Aspirin [Adult Aspirin] 81 mg PO DAILY 12/19/17 [History] Atorvastatin [Lipitor] 40 mg PO HS 12/19/17 [History] Cholecalciferol (D-3) [Vitamin D] 1,000 unit PO DAILY 12/19/17 [History] Lisinopril [Zestril] 40 mg PO DAILY 12/19/17 [History] Metoprolol Succinate [Toprol Xl] 100 mg PO DAILY 12/19/17 [History] Multivit-Min/FA/Lycopen/Lutein [A Thru Z Select Men 50+ Tablet] 1 tab PO DAILY 12/19/17 [History] Tamsulosin [Flomax] 0.4 mg PO DAILY 12/19/17 [History] Allergy/AdvReac Type Severity Reaction Status Date / Time No Known Allergies Allergy Verified 12/18/17 17:59 Review of Systems All systems PM: The remainder of the systems were reviewed and are negative General Surgery Exam Initial Vital Signs Temp Pulse Resp BP Pulse Ox 97.8 F 102 23 117/67 95 12/19/17 00:36 12/19/17 00:36 12/19/17 00:36 12/19/17 00:36 12/19/17 00:36 Exam Initial Vital Signs Temp Pulse Resp BP Pulse Ox 97.8 F 102 23 117/67 95 12/19/17 00:36 12/19/17 00:36 12/19/17 00:36 12/19/17 00:36 12/19/17 00:36 Results - Labs 12/22/17 18:00 12/22/17 14:04 Abnormal lab results RBC 5.53 M/mcL (4.19-5.50) H 12/22/17 05:30 Hgb 11.8 g/dL (12.9-16.9) L 12/22/17 18:00 Hct 36.9 % (37.5-50.1) L 12/22/17 18:00 RDW 14.7 % (11.5-14.5) H 12/22/17 05:30 Monocytes # 1.6 K/mcL (0.0-1.3) H 12/22/17 05:30 Nucleated RBCs/100 WBC 0.3 /100 WBC (0) H 12/21/17 05:52 PT 14.5 Seconds (9.4-12.1) H 12/19/17 02:26 D-Dimer 1385 ng/mLFEU (0-500) H 12/19/17 02:26 ABG pCO2 64 mmHg (35-45) H 12/19/17 04:18 ABG HCO3 34 mEq/L (21-27) H 12/19/17 04:18 ABG Total CO2 36 mEq/L (20-26) H 12/19/17 04:18 ABG Base Excess 4 mEq/L (-2 to 3) H 12/19/17 04:18 Sodium 132 mEq/L (136-145) L 12/22/17 14:04 Chloride 94 mEq/L (98-107) L 12/22/17 14:04 Carbon Dioxide 33 mEq/L (23-29) H 12/22/17 14:04 BUN 27 mg/dL (8-23) H 12/22/17 14:04 Creatinine 0.51 mg/dL (0.70-1.30) L 12/22/17 14:04 BUN/Creatinine Ratio 53 (6-26) H 12/22/17 14:04 Glucose 107 mg/dL (70-105) H 12/22/17 14:04 POC Glucose 108 mg/dL (70-99) H 12/22/17 05:35 Serum Osmolality 256 mOsm/kg (280-300) L 12/19/17 02:26 Calcium 8.4 mg/dL (8.6-10.3) L 12/22/17 14:04 Phosphorus 4.9 mg/dL (2.7-4.5) H 12/19/17 01:52 Ammonia 54 mcmol/L (16-53) H 12/19/17 03:56 Serum Total Protein 5.3 g/dL (6.4-8.9) L 12/19/17 01:52 Albumin 3.3 g/dL (3.5-5.7) L 12/19/17 01:52 Globulin 2.0 g/dL (2.4-3.5) L 12/19/17 01:52 Stool Occult Blood Positive (Negative) A 12/22/17 13:57 Salicylates < 2.5 mg/dL (15.0-30.0) L 12/19/17 03:56 Acetaminophen < 10 mcg/mL (10-20) L 12/19/17 03:56 Diabetes panel 12/22/17 12/22/17 Range/Units 05:30 14:04 Sodium 131 L 132 L (136-145) mEq/L Potassium 4.6 4.7 (3.5-5.1) mEq/L Chloride 91 L 94 L (98-107) mEq/L Carbon Dioxide 36 H 33 H (23-29) mEq/L BUN 18 27 H (8-23) mg/dL Creatinine 0.40 L 0.51 L (0.70-1.30) mg/dL Glucose 106 H 107 H (70-105) mg/dL Calcium 8.7 8.4 L (8.6-10.3) mg/dL Calcium panel 12/22/17 12/22/17 Range/Units 05:30 14:04 Calcium 8.7 8.4 L (8.6-10.3) mg/dL Pituitary panel 12/22/17 12/22/17 Range/Units 05:30 14:04 Sodium 131 L 132 L (136-145) mEq/L Potassium 4.6 4.7 (3.5-5.1) mEq/L Chloride 91 L 94 L (98-107) mEq/L Carbon Dioxide 36 H 33 H (23-29) mEq/L BUN 18 27 H (8-23) mg/dL Creatinine 0.40 L 0.51 L (0.70-1.30) mg/dL Glucose 106 H 107 H (70-105) mg/dL Calcium 8.7 8.4 L (8.6-10.3) mg/dL Adrenal panel 12/22/17 12/22/17 Range/Units 05:30 14:04 Sodium 131 L 132 L (136-145) mEq/L Potassium 4.6 4.7 (3.5-5.1) mEq/L Chloride 91 L 94 L (98-107) mEq/L Carbon Dioxide 36 H 33 H (23-29) mEq/L BUN 18 27 H (8-23) mg/dL Creatinine 0.40 L 0.51 L (0.70-1.30) mg/dL Glucose 106 H 107 H (70-105) mg/dL Calcium 8.7 8.4 L (8.6-10.3) mg/dL All other labs normal. Consult Discharge Plan - Plan [facility]errals: [facility] [Primary Care Provider] -
[2017-12-22] MEDS: Pantoprazole 40 MG in 0.9 % Sodium Chloride Mini Bag 100 ML IVC SCH (20:27)
[2017-12-22 21:04] LABS: Hematocrit 37.7 % (37.5-50.1)
[2017-12-22] MEDS: Piperacillin/Tazobactam 3.375 GM in 0.9 % Sodium Chloride Mini Bag 100 ML IVPB SCH (23:00)
[2017-12-22 23:45] LABS: Hematocrit 37.3 % (37.5-50.1); Hemoglobin 11.8 g/dL (12.9-16.9)
[2017-12-23] MEDS: Pantoprazole 40 MG in 0.9 % Sodium Chloride Mini Bag 100 ML IVC SCH ×5 (00:18→20:49)
[2017-12-23] MEDS: Norepinephrine 4 MG in D5% in Water 250 ML IVC SCH ×3 (02:11→11:11)
[2017-12-23 03:16] LABS: Basophils % 0.3 %; Eosinophils # 0.1 K/mcL (0.0-0.6); Eosinophils % 0.5 %; Hematocrit 38.2 % (37.5-50.1); Immature Granulocytes % 0.9 % (0-4); Lymphocytes # 0.9 K/mcL (0.6-4.6); Lymphocytes % 5.6 %; Mean Corpuscular HGB Conc 31.4 g/dL (31.6-35.5); Mean Corpuscular Volume 95.5 fL (83.0-100.0); Mean Platelet Volume 9.3 fL (9.4-12.4); Monocytes % 13.1 %; Neutrophils # 12.3 K/mcL (1.6-8.9); Platelet Count 201 K/mcL (140-400); Red Cell Distribution Width 15.1 % (11.5-14.5); Segmented Neutrophils % 79.6 %
[2017-12-23 03:27] LABS: INR 1.2; Prothrombin Time 13.1 Seconds (9.4-12.1)
[2017-12-23 03:41] LABS: BUN/Creatinine Ratio 49 (6-26); Blood Urea Nitrogen 19 mg/dL (8-23); Calcium 7.7 mg/dL (8.6-10.3); Carbon Dioxide 31 mEq/L (23-29); Chloride 99 mEq/L (98-107); Glucose 146 mg/dL (70-105); Osmolality,Calculated 283 (280-300); Potassium 4.6 mEq/L (3.5-5.1); Sodium 134 mEq/L (136-145); eGFR For Non-African Americans > 60 (> 60)
[2017-12-23] MEDS: Ipratropium/Albuterol Neb 3 ML IH SCH ×6 (04:02→23:18)
[2017-12-23 05:57] LABS: Hematocrit 35.9 % (37.5-50.1); Hemoglobin 11.4 g/dL (12.9-16.9)
--- NOTE | 2017-12-23 07:13 | Pulmonology Progress Note ---
<Dane Barr M - Last Filed: 12/23/17 16:17> Date of Encounter: 12/23/17 Objective PUL Vital signs: Last Vital Signs Temp 98.3 F 12/23/17 11:30 Pulse 113 12/23/17 15:26 Resp 20 12/23/17 15:23 BP 121/64 12/23/17 15:23 Pulse Ox 100 12/23/17 15:23 Results - Laboratory Findings CBC and BMP: 12/23/17 12:30 12/23/17 03:05 ABG ABG pH 7.33 pH Units (7.32-7.45) 12/19/17 04:18 ABG pCO2 64 mmHg (35-45) H 12/19/17 04:18 ABG pO2 85 mmHg (85-104) 12/19/17 04:18 ABG O2 Saturation 95 % (95-98) 12/19/17 04:18 PT/INR, D-dimer PT 13.1 Seconds (9.4-12.1) H 12/23/17 03:05 D-Dimer 1385 ng/mLFEU (0-500) H 12/19/17 02:26 Abnormal lab findings: Abnormal lab results WBC 15.4 K/mcL (4.3-11.1) H 12/23/17 03:05 RBC 4.00 M/mcL (4.19-5.50) L 12/23/17 03:05 Hgb 9.4 g/dL (12.9-16.9) L D 12/23/17 12:30 Hct 30.2 % (37.5-50.1) L 12/23/17 12:30 MCHC 31.4 g/dL (31.6-35.5) L 12/23/17 03:05 RDW 15.1 % (11.5-14.5) H 12/23/17 03:05 MPV 9.3 fL (9.4-12.4) L 12/23/17 03:05 Neutrophils # 12.3 K/mcL (1.6-8.9) H 12/23/17 03:05 Monocytes # 2.0 K/mcL (0.0-1.3) H 12/23/17 03:05 Nucleated RBCs/100 WBC 0.3 /100 WBC (0) H 12/21/17 05:52 PT 13.1 Seconds (9.4-12.1) H 12/23/17 03:05 D-Dimer 1385 ng/mLFEU (0-500) H 12/19/17 02:26 ABG pCO2 64 mmHg (35-45) H 12/19/17 04:18 ABG HCO3 34 mEq/L (21-27) H 12/19/17 04:18 ABG Total CO2 36 mEq/L (20-26) H 12/19/17 04:18 ABG Base Excess 4 mEq/L (-2 to 3) H 12/19/17 04:18 Sodium 134 mEq/L (136-145) L 12/23/17 03:05 Carbon Dioxide 31 mEq/L (23-29) H 12/23/17 03:05 Creatinine 0.39 mg/dL (0.70-1.30) L 12/23/17 03:05 BUN/Creatinine Ratio 49 (6-26) H 12/23/17 03:05 Glucose 146 mg/dL (70-105) H 12/23/17 03:05 POC Glucose 108 mg/dL (70-99) H 12/22/17 05:35 Serum Osmolality 256 mOsm/kg (280-300) L 12/19/17 02:26 Lactic Acid 0.2 mmol/L (0.5-2.2) L 12/23/17 12:30 Calcium 7.7 mg/dL (8.6-10.3) L 12/23/17 03:05 Phosphorus 4.9 mg/dL (2.7-4.5) H 12/19/17 01:52 Ammonia 54 mcmol/L (16-53) H 12/19/17 03:56 Serum Total Protein 5.3 g/dL (6.4-8.9) L 12/19/17 01:52 Albumin 3.3 g/dL (3.5-5.7) L 12/19/17 01:52 Globulin 2.0 g/dL (2.4-3.5) L 12/19/17 01:52 Stool Occult Blood Positive (Negative) A 12/22/17 13:57 Salicylates < 2.5 mg/dL (15.0-30.0) L 11/11/18 03:56 Acetaminophen < 10 mcg/mL (10-20) L 12/19/17 03:56 - Microbiology Findings Microbiology Findings: Microbiology, Last 48 Hours 12/23/17 13:25 Blood Culture - Preliminary Peripheral Central Cath, Picc Culture is incubating and being continuously monitored for growth. Final report to follow. 12/23/17 13:22 Blood Culture - Preliminary Peripheral Venipuncture Culture is incubating and being continuously monito red for growth. Final report to follow. 12/23/17 13:30 Blood Culture - Preliminary Peripheral Central Cath, Picc Culture is incubating and being continuously monitored for growth. Final report to follow. 12/23/17 13:22 Blood Culture - Preliminary Peripheral Venipuncture Culture is incubating and being continuously monitored for growth. Final report to follow. - Clinical Findings Intake & Output: Intake & Output 12/23/17 12/23/17 12/23/17 07:59 15:59 23:59 Intake Total 1058 / 1058 954 / 954 Output Total 500 / 500 1250 / 1250 Balance 558 / 558 -296 / -296 Consult Discharge Plan - Plan Referrals: [facility] [Primary Care Provider] - - Attending Attestation I examined this patient and my medical decision-making was reviewed with the Resident Physician. I agree with the documented findings, disposition and treatment plan as described except to the extent set forth below. Patient seen and examined. Labs, radiology, chart personally reviewed. Agree with resident's history and physical, assessment, plan with following comments: MANAGER PLANNING: Patient follows commands, Pulmonary: Acceptable oxygenation and ventilation, however I suspect combination of atelectasis and also underlying liver disease with possibility of pleural effusion and aspiration could result in a cute hypoxic respiratory failure and to titrate FiO2 to keep SPO2 around 92%. Patient needs to stay in the ICU because of the hemodynamic instability. Encourage incentive spirometry and broad-spectrum antibiotics. Cardiovascular: Patient and believe in shock which most likely hypovolemic from blood loss and even though hemoglobin artificially looks normal or close to normal, however his baseline is elevated and I have given him more volume with albumin and it appears to have some benefit with lowering his needs for vasopressor. GI: Nutrition per dietary and GI prophylaxis per routine. Continue monitoring H&H and had octreotide Heme: DVT prophylaxis per routine ID: Continue antibiotics and plan to de-escalation Renal; urine out put and renal funtion reviewed Endorcine: blood glucose is monitored Lines: all lines checked and no evidence of infections Skin: skin care to prevent pressure ulcers per nursing routine care I spent 35 min of Critical Care time with this patient. It involved decision making of high complexity to assess, manipulate, and support vital organ system failure and/or to prevent further life threatening deterioration of the patient's condition. The time involved in the performance of separately r eportable procedures was not counted toward critical care time. <Mat Silva W - Last Filed: 12/23/17 16:28> Date of Encounter: 12/23/17 Time of Encounter: 07:13 Assessment and Plan (1) Duodenal ulcer Current Visit: Yes Status: Acute Endoscopy 12/22 multiple oozing duodenal ulcers History of chronic alcohol abuse most likely etiology Ulcers injected during endoscopy Octreotide drip Protonix continue to monitor H&H repeat CXR (2) Altered mental status Current Visit: Yes Status: Resolved Patient originally admitted for AMS likely due to alcohol withdraw and/or underlying pneumonia vs hyponatremic arousable and follows commands Patient is on CIWA protocol multivitamins Heavy responder to benzodiazepines use as low dose as possible to prevent desaturations On Zosyn Qualifiers: Altered mental status type: unspecified Qualified Code(s): R41.82 - Altered mental status, unspecified (3) Hypotension Current Visit: Yes Status: Acute Patient was noted to be hypotensive last night. 80/60 Central line was placed last night Patient started on Levophed Etiology unknown at this time consider hypovolemia from GI bleed vs septic shock from pneumonia BP systolic >100 on levophed continue Levophed Blood cultures and Lactic acid ordered Qualifiers: Hypotension type: unspecified hypotension type Qualified Code(s): I95.9 - Hypotension, unspecified (4) Pneumonia Current Visit: Yes Status: Suspected CXR findings concerning for pneumonia and/or pleural effusion Concern for aspiration from nursing report started on broad spectrum antibiotics patient had episodes of desats most likely related to ativan given for CIWA pro tocol increased to 6L O2 and oxymask Continue zosyn day 2 D/C vanc day 2 Duonebs scheduled Qualifiers: Pneumonia type: aspiration pneumonia Aspiration pneumonia type: unspecified Laterality: right Lung location: lower lobe of lung Qualified Code(s): J69.0 - Pneumonitis due to inhalation of food and vomit (5) Pleural effusion Current Visit: Yes Status: Acute Concern for plueral effusion on CXR patient likely hypervolemic Lasix held due to hypotension (6) Hyponatremia Current Visit: Yes Status: Acute On admission Na was 125 currently 134 likely hypervolemic with effusion and bl le edema continue to monitor gentle hydration (7) Alcohol abuse Current Visit: Yes Status: Chronic Known history of alcohol abuse 6 Etoh per day CIWA protocol (use least amont of benzodiazepines as possible as patietn desats easily) multivitamins (8) DVT prophylaxis Current Visit: Yes Status: Acute EPCDs patient refuses Subjective Principal diagnosis: Hypoxia Interval history: Patient was transferred to [facility] from [place] due to decreases mental status, conrcern for pneumonia, and possible alcohol withdrawal. Patient was admitted to the hospital for treatment. on Day 4 of hospitalization patient became hypotensive and had downtrending hemoglobin. A central line was placed and the patient was transferred to the ICU. In the ICU the surgeon performed EGD and injected 2 duodenal ulcers. Octreotide infusion started and albumin given. Objective PUL Vital signs: Last Vital Signs Temp 97.9 F 12/23/17 03:02 Pulse 95 12/23/17 06:00 Resp 18 12/23/17 06:00 BP 93/50 12/23/17 06:00 Pulse Ox 94 12/23/17 06:00 General appearance: no acute distress Eyes: nonicteric ENT: oropharynx dry Auscultation: bilateral: clear Cardiovascular: regular rate and rhythm Gastrointestinal: normoactive bowel sounds, soft, non-tender normal mental status mood appropriate, affect normal Results - Laboratory Findings CBC and BMP: 12/23/17 12:30 12/23/17 03:05 ABG ABG pH 7.33 pH Units (7.32-7.45) 12/19/17 04:18 ABG pCO2 64 mmHg (35-45) H 12/19/17 04:18 ABG pO2 85 mmHg (85-104) 12/19/17 04:18 ABG O2 Saturation 95 % (95-98) 12/19/17 04:18 PT/INR, D-dimer PT 13.1 Seconds (9.4-12.1) H 12/23/17 03:05 D-Dimer 1385 ng/mLFEU (0-500) H 12/19/17 02:26 Abnormal lab findings: Abnormal lab results WBC 15.4 K/mcL (4.3-11.1) H 12/23/17 03:05 RBC 4.00 M/mcL (4.19-5.50) L 12/23/17 03:05 Hgb 11.4 g/dL (12.9-16.9) L 12/23/17 05:45 Hct 35.9 % (37.5-50.1) L 12/23/17 05:45 MCHC 31.4 g/dL (31.6-35.5) L 12/23/17 03:05 RDW 15.1 % (11.5-14.5) H 12/23/17 03:05 MPV 9.3 fL (9.4-12.4) L 12/23/17 03:05 Neutrophils # 12.3 K/mcL (1.6-8.9) H 12/23/17 03:05 Monocytes # 2.0 K/mcL (0.0-1.3) H 12/23/17 03:05 Nucleated RBCs/100 WBC 0.3 /100 WBC (0) H 12/21/17 05:52 PT 13.1 Seconds (9.4-12.1) H 12/23/17 03:05 D-Dimer 1385 ng/mLFEU (0-500) H 12/19/17 02:26 ABG pCO2 64 mmHg (35-45) H 12/19/17 04:18 ABG HCO3 34 mEq/L (21-27) H 12/19/17 04:18 ABG Total CO2 36 mEq/L (20-26) H 12/19/17 04:18 ABG Base Excess 4 mEq/L (-2 to 3) H 12/19/17 04:18 Sodium 134 mEq/L (136-145) L 12/23/17 03:05 Carbon Dioxide 31 mEq/L (23-29) H 12/23/17 03:05 Creatinine 0.39 mg/dL (0.70-1.30) L 12/23/17 03:05 BUN/Creatinine Ratio 49 (6-26) H 12/23/17 03:05 Glucose 146 mg/dL (70-105) H 12/23/17 03:05 POC Glucose 108 mg/dL (70-99) H 12/22/17 05:35 Serum Osmolality 256 mOsm/kg (280-300) L 12/19/17 02:26 Calcium 7.7 mg/dL (8.6-10.3) L 12/23/17 03:05 Phosphorus 4.9 mg/dL (2.7-4.5) H 12/19/17 01:52 Ammonia 54 mcmol/L (16-53) H 12/19/17 03:56 Serum Total Protein 5.3 g/dL (6.4-8.9) L 12/19/17 01:52 Albumin 3.3 g/dL (3.5-5.7) L 12/19/17 01:52 Globulin 2.0 g/dL (2.4-3.5) L 12/19/17 01:52 Stool Occult Blood Positive (Negative) A 12/22/17 13:57 Salicylates < 2.5 mg/dL (15.0-30.0) L 12/19/17 03:56 Acetaminophen < 10 mcg/mL (10-20) L 12/19/17 03:56 - Clinical Findings Intake & Output: Intake & Output 12/22/17 12/22/17 12/23/17 15:59 23:59 07:59 Intake Total 240 / 240 504 / 504 808 / 808 Output Total 450 / 450 1500 / 1500 500 / 500 Balance -210 / -210 -996 / -996 308 / 308 Weight 83 kg - VTE Documentation of Mechanical Device: Intermittent pneumatic compression device
[2017-12-23] MEDS: Budesonide/Formoterol 160/4.5 1 PUFF INH IH SCH ×2 (07:25→19:42)
[2017-12-23] MEDS ORDERED: Octreotide 50 MCG/ML SYRINGE IVP SCH (08:00)
[2017-12-23 08:33] LABS: Troponin I < 0.03 ng/mL (< 0.04)
[2017-12-23] MEDS: Vitamin B Complex/Vit C/Vit E 1 EACH TABLET PO SCH (08:51)
[2017-12-23] MEDS: Thiamine (B-1) 100 MG TABLET PO SCH (08:51)
[2017-12-23] MEDS: amLODIPine 5 MG TABLET PO SCH (08:52)
[2017-12-23] MEDS: Folic Acid 1 MG TABLET PO SCH (08:52)
[2017-12-23] MEDS: Furosemide 40 MG TABLET PO SCH (08:52)
[2017-12-23] MEDS: Metoprolol XL (24 HR) Succ 50 MG TAB.ER.24H PO SCH (08:52)
[2017-12-23] MEDS: Multivit/Ca/Min/Fe/FA 1 TAB TABLET PO SCH (08:52)
[2017-12-23] MEDS: Piperacillin/Tazobactam 3.375 GM in 0.9 % Sodium Chloride Mini Bag 100 ML IVPB SCH ×2 (08:53→15:43)
[2017-12-23] MEDS: Cholecalciferol (D-3) 1,000 UNIT TABLET PO SCH (08:53)
[2017-12-23] MEDS: Albumin 25% 25gram/100mL 25 GM/100 ML IV.SOLN IVC SCH ×4 (09:08→13:30)
[2017-12-23] MEDS: Octreotide 400 MCG in 0.9 % Sodium Chloride 100 ML IVC SCH (09:08)
[2017-12-23] MEDS: Lisinopril 20 MG TABLET PO SCH (10:09)
[2017-12-23 12:47] LABS: Hematocrit 30.2 % (37.5-50.1)
[2017-12-23 12:54] LABS: Hemoglobin 9.4 g/dL (12.9-16.9)
--- NOTE | 2017-12-23 13:04 | General Surgery Progress Note ---
Date of Encounter: 12/23/17 Time of Encounter: 12:55 Subjective Narrative: General Surgery - GI coverage Patient awake, voicing no complaints, remains afebrile, 98.3, pulse 90-118, respirations 20-22, blood pressure currently 111 but continues to require norepinephrine for hemodynamic support. 2 large melanic bowel movements overnight consistent with significant GI bleed consistent with the duodenal ulcers identified during EGD last evening. Hemoglobin is stabilized at 11.4 with hematocrit 35.9 (overnight the hemoglobin between 11.8 and 12.0) Lungs: With bilaterally diminished breath sounds, a difficult to hear any breath sounds but they are clear to my auscultation Abdomen: Soft nontender Impression: Significant upper GI hemorrhage due to duodenal ulcers. 2 large cratered u lcers identified on EGD. It appears that the ulcer identified as the source of the upper GI hemorrhage is controlled Plan: continue to monitor for recurrent hemorrhage consider other source of hypotension such as infectious etiology ei pneumonia Objective Vital Signs - Last 8 Hours Temp Pulse Resp BP Pulse Ox 12/23/17 12:00 20 98 12/23/17 11:30 98.3 F 118 22 111/57 98 12/23/17 10:30 90 20 91/51 96 12/23/17 09:30 94 19 94/57 99 12/23/17 08:30 90 20 84/58 96 12/23/17 08:00 98.4 F 12/23/17 07:35 96 20 118/75 99 12/23/17 07:25 12 100 12/23/17 06:00 95 18 93/50 94 12/23/17 05:03 102 18 102/60 100 Intake and Output 12/22/17 12/23/17 12/23/17 23:59 07:59 15:59 Intake Total 504 / 504 1058 / 1058 554 / 554 Output Total 1500 / 1500 500 / 500 800 / 800 Balance -996 / -996 558 / 558 -246 / -246 Intake: IV Fluids 504 / 504 1058 / 1058 554 / 554 Flexbumin 25 gm In 100 ml @ 60 200 / 200 mls/hr IVC .Q1H40M [facility] Rx#: [id number] Levophed 4 MG In Dextrose 5% 254 / 254 508 / 508 254 / 254 250 ML @ 8 MCG/MIN 30.48 mls/hr IVC CONT [facility]RAHAM Rx#:[id number] Protonix 40 MG In 0.9 % Sodium 200 / 200 100 / 100 Chloride (Mini-Bag +) 100 ML @ 20 mls/hr IVC .Q5H [facility]RAH[facility] Rx#: [id number] Zosyn 3.375 GM In 0.9 % Sodium 100 / 100 Chloride (Mini-Bag +) 100 ML @ 25 mls/hr IVPB Q8HR [facility] Rx#: [id number] Vancocin 1,250 MG In 0.9 % 250 / 250 250 / 250 Sodium Chloride 250 ML @ 167 mls/hr IVPB Q12H [facility] Rx#: [id number] Oral 0 / 0 Output: Urine/Stool Mix 500 / 500 Catheter 1000 / 1000 500 / 500 800 / 800 Other: Stool Size Moderate Large Stool Consistency liquid liquid Stool Characteristics Mucoid Tarry Stool Color Black Black # Bowel Movements 1 Weight 83 kg - Labs 12/23/17 05:45 12/23/17 03:05 Diabetes panel 12/22/17 12/23/17 Range/Units 14:04 03:05 Sodium 132 L 134 L (136-145) mEq/L Potassium 4.7 4.6 (3.5-5.1) mEq/L Chloride 94 L 99 (98-107) mEq/L Carbon Dioxide 33 H 31 H (23-29) mEq/L BUN 27 H 19 (8-23) mg/dL Creatinine 0.51 L 0.39 L (0.70-1.30) mg/dL Glucose 107 H 146 H (70-105) mg/dL Calcium 8.4 L 7.7 L (8.6-10.3) mg/dL Calcium panel 12/22/17 12/23/17 Range/Units 14:04 03:05 Calcium 8.4 L 7.7 L (8.6-10.3) mg/dL Pituitary panel 12/22/17 12/23/17 Range/Units 14:04 03:05 Sodium 132 L 134 L (136-145) mEq/L Potassium 4.7 4.6 (3.5-5.1) mEq/L Chloride 94 L 99 (98-107) mEq/L Carbon Dioxide 33 H 31 H (23-29) mEq/L BUN 27 H 19 (8-23) mg/dL Creatinine 0.51 L 0.39 L (0.70-1.30) mg/dL Glucose 107 H 146 H (70-105) mg/dL Calcium 8.4 L 7.7 L (8.6-10.3) mg/dL Adrenal panel 12/22/17 12/23/17 Range/Units 14:04 03:05 Sodium 132 L 134 L (136-145) mEq/L Potassium 4.7 4.6 (3.5-5.1) mEq/L Chloride 94 L 99 (98-107) mEq/L Carbon Dioxide 33 H 31 H (23-29) mEq/L BUN 27 H 19 (8-23) mg/dL Creatinine 0.51 L 0.39 L (0.70-1.30) mg/dL Glucose 107 H 146 H (70-105) mg/dL Calcium 8.4 L 7.7 L (8.6-10.3) mg/dL - VTE Documentation of Mechanical Device: Intermittent pneumatic compression device Consult Discharge Plan - Plan Referrals: [facility] [Primary Care Provider] -
[2017-12-23 18:15] LABS: Hematocrit 29.1 % (37.5-50.1); Hemoglobin 8.9 g/dL (12.9-16.9)
[2017-12-23] MEDS: *HR* LORazepam 2 MG/ML VIAL IVP PRN (23:38)
[2017-12-23 23:40] LABS: Hematocrit 28.6 % (37.5-50.1); Hemoglobin 8.9 g/dL (12.9-16.9)
[2017-12-24] MEDS: Piperacillin/Tazobactam 3.375 GM in 0.9 % Sodium Chloride Mini Bag 100 ML IVPB SCH ×4 (00:16→23:57)
[2017-12-24] MEDS: Octreotide 400 MCG in 0.9 % Sodium Chloride 100 ML IVC SCH ×2 (00:17→18:04)
[2017-12-24] MEDS: Norepinephrine 4 MG in D5% in Water 250 ML IVC SCH (00:18)
[2017-12-24] MEDS: Pantoprazole 40 MG in 0.9 % Sodium Chloride Mini Bag 100 ML IVC SCH ×5 (01:50→21:05)
[2017-12-24 03:48] LABS: Basophils % 0.5 %; Eosinophils # 0.2 K/mcL (0.0-0.6); Eosinophils % 2.5 %; Hematocrit 29.9 % (37.5-50.1); Hemoglobin 8.9 g/dL (12.9-16.9); Immature Granulocytes % 0.7 % (0-4); Immature Platelets 3.9 % (1.1-6.1); Lymphocytes # 0.6 K/mcL (0.6-4.6); Lymphocytes % 7.4 %; Mean Corpuscular HGB Conc 29.8 g/dL (31.6-35.5); Mean Corpuscular Hemoglobin 29.7 pg (28.0-33.3); Mean Corpuscular Volume 99.7 fL (83.0-100.0); Mean Platelet Volume 9.4 fL (9.4-12.4); Monocytes # 1.1 K/mcL (0.0-1.3); Monocytes % 14.6 %; Neutrophils # 5.7 K/mcL (1.6-8.9); Platelet Count 191 K/mcL (140-400); Red Cell Distribution Width 14.8 % (11.5-14.5); Segmented Neutrophils % 74.3 %
[2017-12-24 03:49] LABS: VBG Ionized Calcium 1.18 mmol/L (1.15-1.35)
[2017-12-24 04:09] LABS: Alanine Aminotransferase 11 Units/L (7-52); Albumin 3.7 g/dL (3.5-5.7); Albumin/Globulin Ratio 2.8 (1.1-2.2); Alkaline Phosphatase 34 Units/L (34-104); Aspartate Amino Transferase 11 Units/L (13-39); BUN/Creatinine Ratio 18 (6-26); Bilirubin,Total 0.9 mg/dL (0.3-1.0); Blood Urea Nitrogen 6 mg/dL (8-23); Calcium 8.4 mg/dL (8.6-10.3); Carbon Dioxide 41 mEq/L (23-29); Chloride 92 mEq/L (98-107); Globulin 1.3 g/dL (2.4-3.5); Glucose 126 mg/dL (70-105); Magnesium 2.2 mg/dL (1.6-2.6); Osmolality,Calculated 275 (280-300); Phosphorous 4.2 mg/dL (2.7-4.5); Potassium 4.8 mEq/L (3.5-5.1); Sodium 133 mEq/L (136-145); eGFR For Non-African Americans > 60 (> 60)
[2017-12-24] MEDS: Ipratropium/Albuterol Neb 3 ML IH SCH ×6 (04:09→23:33)
[2017-12-24] MEDS ORDERED: Albumin 25% 25gram/100mL 25 GM/100 ML IV.SOLN IVPB ONE (06:00)
[2017-12-24] MEDS: Thiamine (B-1) 100 MG TABLET PO SCH (08:09)
[2017-12-24] MEDS: Folic Acid 1 MG TABLET PO SCH (08:10)
[2017-12-24] MEDS: Multivit/Ca/Min/Fe/FA 1 TAB TABLET PO SCH (08:10)
[2017-12-24] MEDS: Cholecalciferol (D-3) 1,000 UNIT TABLET PO SCH (08:10)
[2017-12-24] MEDS: Vitamin B Complex/Vit C/Vit E 1 EACH TABLET PO SCH (08:10)
[2017-12-24] MEDS: Furosemide 40 MG TABLET PO SCH (08:10)
[2017-12-24] MEDS: Metoprolol XL (24 HR) Succ 50 MG TAB.ER.24H PO SCH (08:11)
[2017-12-24] MEDS: amLODIPine 5 MG TABLET PO SCH (08:12)
[2017-12-24] MEDS: Lisinopril 20 MG TABLET PO SCH (08:12)
[2017-12-24] MEDS: Budesonide/Formoterol 160/4.5 1 PUFF INH IH SCH ×2 (08:43→20:01)
[2017-12-24] MEDS ORDERED: 0.9 % Sodium Chloride 250 ML ONE (09:03)
--- NOTE | 2017-12-24 09:40 | Pulmonology Progress Note ---
<Magaly Rudd C - Last Filed: 12/24/17 17:04> Date of Encounter: 12/24/17 Time of Encounter: 09:40 Assessment and Plan (1) Duodenal ulcer Current Visit: Yes Status: Acute EGD on 12/22 demonstrated multiple oozing ulcers which were injected with epinephrine. No ulcers visualized in the stomach or esophagus. Patient receiving IV octreotide and protonix 40 mg. Continuing to trend H&H q6; transfused 1 unit pRBC for Hgb of 8.9 decreased from 11.4. Will consider additional PRBCs if Hgb not improving. (2) Hypotension Current Visit: Yes Status: Resolved Patient was transferred to ICU on 12/22/2017 for refractory hypotension, central line placement, and initiation of Levophed. Considered etiology includes hypovolemia secondary to GI bleed vs. septic shock due to pnemonia. Patient received a total of 125 g of albumin. Blood cultures were obtained and sent. Lactic acid x3 was normal. Patient has been weaned off Levophed as of this morning. Blood pressures have been 120s/80s with Levophed held. Patient has been afebrile since admission. WBC increased to 15.4 yeasterday, likely reactive secondary to EGD procedure. Qualifiers: Hypotension type: unspecified hypotension type Qualified Code(s): I95.9 - Hypotension, unspecified (3) Pneumonia Current Visit: Yes Status: Suspected CXR on 12/23/2017 demonstrated worsening right lower lobe opacity, suspicious for pneumonia with stable right lower pleural effusion. Concern for aspiration pneumonia per nursing report. Patient had several episodes of oxygen desaturation yesterday, placed on oxymask, repositioned patient. Hypoxia resolved. However, patient still requiring supplemental oxygen, 3L oxymask, with desaturation when oxymask taken off. Patient is on Zosyn day 3, scheduled duonebs q4. Increase in WBC to 15.4, likely reactive due to EGD. Has since resolved at 7.7 On exam, patient's breathing was non labored; lungs clear to auscultation bilaterally. Patient encouraged to use incentive spirometry with help of nursing staff. Will continue ABX, correlate clinically. If worsening clinical picture, will consider doing another CXR. Qualifiers: Pneumonia type: aspiration pneumonia Aspiration pneumonia type: unspecified Laterality: right Lung location: lower lobe of lung Qualified Code(s): J69.0 - Pneumonitis due to inhalation of food and vomit (4) Anemia Current Visit: Yes Status: Acute EGD performed on 12/22/2017 demonstrated multiple oozing duodenal ulcers that were injected with epinephrine. Since EGD, patient has experienced several episodes of bloody stool and dark tarry stool. Over the last 24 hours, Hgb decreased from 11.8 to 8.9 1 unit of PRBCs has been transfused. H&H are being trended. If anemia persists, will consider transfusion of additional PRBCs. Patient's platelets count remains normal at 201. Qualifiers: Anemia type: unspecified type Qualified Code(s): D64.9 - Anemia, unspecified (5) Hyponatremia Current Visit: Yes Status: Acute Initially, Na was 125. Today, Na is 133. Likely secondary to fluid status and reduced PO intake. Cl is also low at 92. Will consider gentle hydration. PO Lasix held since yesterday. Will continue to monitor. Once cleared by Surgery will consider giving him a diet. (6) Altered mental status Current Visit: Yes Status: Resolved Patient originally admitted for altered mental status. Likely secondary to acute alcohol withdraw possibly in conjunction with pneumonia, hyponatremia. Patient is currently A&O x3 and follows commands. Patient had one episode of confusion over night, likely secondary to acute alcohol withdraw. Will continue to monitor and be on CIWA protocol. Qualifiers: Altered mental status type: unspecified Qualified Code(s): R41.82 - Altered mental status, unspecified (7) Alcohol abuse Current Visit: Yes Status: Chronic Patient has history of EtOH abuse, intake of approximately 5-6 alcoholic beverages per day. Patient was placed on CIWA protocol upon admission. Patient had one episode of confusion and sweating over night; was given 1 mg Ativan. Currently CIWA score of 1 or less. Ativan 1 mg PRN ordered. Patient receiving PO vitamins: B complex, thaimine, multivitamin. (8) DVT prophylaxis Current Visit: Yes Status: Acute Patient now agreeable to mechanical DVT prophylaxis with EPCDs. Heparin not an option currently due to GI bleed. Subjective Principal diagnosis: Hypotension Interval history: Patient originally admitted to ICU for refractory hypotension requiring central line placement and levophed at 18mcg/min. Levophed has since been weaned off and is held currently. Patient's blood pressures have improved to 120s/80s Tachycardia has also improved with HR in 90s currently Objective PUL Vital signs: Last Vital Signs Temp 97.7 F 12/24/17 09:27 Pulse 94 12/24/17 09:27 Resp 23 12/24/17 09:27 BP 124/61 12/24/17 09:27 Pulse Ox 98 12/24/17 09:27 General appearance: no acute distress, alert Effort: normal Cardiovascular: regular rate and rhythm Gastrointestinal: normoactive bowel sounds Extremities: no cyanosis, pink and warm, edema (improved bilateral pedal edema from yesterday) Musculoskeletal: no deformities mood appropriate, affect normal Results - Laboratory Findings CBC and BMP: 12/24/17 10:45 12/24/17 03:30 ABG ABG pH 7.33 pH Units (7.32-7.45) 12/19/17 04:18 ABG pCO2 64 mmHg (35-45) H 12/19/17 04:18 ABG pO2 85 mmHg (85-104) 12/19/17 04:18 ABG O2 Saturation 95 % (95-98) 12/19/17 04:18 PT/INR, D-dimer PT 13.1 Seconds (9.4-12.1) H 12/23/17 03:05 D-Dimer 1385 ng/mLFEU (0-500) H 12/19/17 02:26 Abnormal lab findings: Abnormal lab results RBC 3.00 M/mcL (4.19-5.50) L 12/24/17 03:30 Hgb 8.9 g/dL (12.9-16.9) L 12/24/17 03:30 Hct 29.9 % (37.5-50.1) L 12/24/17 03:30 MCHC 29.8 g/dL (31.6-35.5) L 12/24/17 03:30 RDW 14.8 % (11.5-14.5) H 12/24/17 03:30 Nucleated RBCs/100 WBC 0.3 /100 WBC (0) H 12/21/17 05:52 PT 13.1 Seconds (9.4-12.1) H 12/23/17 03:05 D-Dimer 1385 ng/mLFEU (0-500) H 12/19/17 02:26 ABG pCO2 64 mmHg (35-45) H 12/19/17 04:18 ABG HCO3 34 mEq/L (21-27) H 12/19/17 04:18 ABG Total CO2 36 mEq/L (20-26) H 12/19/17 04:18 ABG Base Excess 4 mEq/L (-2 to 3) H 12/19/17 04:18 Sodium 133 mEq/L (136-145) L 12/24/17 03:30 Chloride 92 mEq/L (98-107) L 12/24/17 03:30 Carbon Dioxide 41 mEq/L (23-29) H* 12/24/17 03:30 BUN 6 mg/dL (8-23) L 12/24/17 03:30 Creatinine 0.33 mg/dL (0.70-1.30) L 12/24/17 03:30 Glucose 126 mg/dL (70-105) H 12/24/17 03:30 POC Glucose 108 mg/dL (70-99) H 12/22/17 05:35 Serum Osmolality 256 mOsm/kg (280-300) L 12/19/17 02:26 Calculated Osmolality 275 (280-300) L 12/24/17 03:30 Calcium 8.4 mg/dL (8.6-10.3) L 12/24/17 03:30 AST 11 Units/L (13-39) L 12/24/17 03:30 Ammonia 54 mcmol/L (16-53) H 12/19/17 03:56 Serum Total Protein 5.0 g/dL (6.4-8.9) L 12/24/17 03:30 Globulin 1.3 g/dL (2.4-3.5) L 12/24/17 03:30 Albumin/Globulin Ratio 2.8 (1.1-2.2) H 12/24/17 03:30 Stool Occult Blood Positive (Negative) A 12/22/17 13:57 Salicylates < 2.5 mg/dL (15.0-30.0) L 12/19/17 03:56 Acetaminophen < 10 mcg/mL (10-20) L 12/19/17 03:56 - Microbiology Findings Microbiology Findings: Microbiology, Last 48 Hours 12/23/17 13:25 Blood Culture - Preliminary Peripheral Central Cath, Picc Culture is incubating and being continuously monitored for growth. Final report to follow. 12/23/17 13:22 Blood Culture - Preliminary Peripheral Venipuncture Culture is incubating and being continuously monitored for growth. Final report to follow. 12/23/17 13:30 Blood Culture - Preliminary Peripheral Central Cath, Picc Culture is incubating and being continuously monitored for growth. Final report to follow. 12/23/17 13:22 Blood Culture - Preliminary Peripheral Venipuncture Culture is incubating and being continuously monitored for growth. Final report to follow. - Clinical Findings Intake & Output: Intake & Output 12/23/17 12/24/17 12/24/17 23:59 07:59 15:59 Intake Total 200 / 200 658 / 658 0 / 0 Output Total 2800 / 2800 700 / 700 350 / 350 Balance -2600 / -2600 -42 / -42 -350 / -350 Weight 83 kg - VTE Documentation of Mechanical Device: Intermittent pneumatic compression device Consult Discharge Plan - Plan [facility]: [facility] Care Provider[facility] - <Dane Barr - Last Filed: 12/25/17 08:12> Date of Encounter: 12/25/17 Objective PUL Vital signs: Last Vital Signs Temp 97.7 F 12/24/17 09:27 Pulse 94 12/24/17 09:27 Resp 23 12/24/17 09:27 BP 124/61 12/24/17 09:27 Pulse Ox 98 12/24/17 09:27 Results - Laboratory Findings CBC and BMP: 12/25/17 03:55 12/25/17 03:55 ABG ABG pH 7.33 pH Units (7.32-7.45) 12/19/17 04:18 ABG pCO2 64 mmHg (35-45) H 12/19/17 04:18 ABG pO2 85 mmHg (85-104) 12/19/17 04:18 ABG O2 Saturation 95 % (95-98) 12/19/17 04:18 PT/INR, D-dimer PT 13.1 Seconds (9.4-12.1) H 12/23/17 03:05 D-Dimer 1385 ng/mLFEU (0-500) H 12/19/17 02:26 Abnormal lab findings: Abnormal lab results RBC 3.00 M/mcL (4.19-5.50) L 12/24/17 03:30 Hgb 8.9 g/dL (12.9-16.9) L 12/24/17 03:30 Hct 29.9 % (37.5-50.1) L 12/24/17 03:30 MCHC 29.8 g/dL (31.6-35.5) L 12/24/17 03:30 RDW 14.8 % (11.5-14.5) H 12/24/17 03:30 Nucleated RBCs/100 WBC 0.3 /100 WBC (0) H 12/21/17 05:52 PT 13.1 Seconds (9.4-12.1) H 12/23/17 03:05 D-Dimer 1385 ng/mLFEU (0-500) H 12/19/17 02:26 ABG pCO2 64 mmHg (35-45) H 12/19/17 04:18 ABG HCO3 34 mEq/L (21-27) H 12/19/17 04:18 ABG Total CO2 36 mEq/L (20-26) H 12/19/17 04:18 ABG Base Excess 4 mEq/L (-2 to 3) H 12/19/17 04:18 Sodium 133 mEq/L (136-145) L 12/24/17 03:30 Chloride 92 mEq/L (98-107) L 12/24/17 03:30 Carbon Dioxide 41 mEq/L (23-29) H* 12/24/17 03:30 BUN 6 mg/dL (8-23) L 12/24/17 03:30 Creatinine 0.33 mg/dL (0.70-1.30) L 12/24/17 03:30 Glucose 126 mg/dL (70-105) H 12/24/17 03:30 POC Glucose 108 mg/dL (70-99) H 12/22/17 05:35 Serum Osmolality 256 mOsm/kg (280-300) L 12/19/17 02:26 Calculated Osmolality 275 (280-300) L 12/24/17 03:30 Calcium 8.4 mg/dL (8.6-10.3) L 12/24/17 03:30 AST 11 Units/L (13-39) L 12/24/17 03:30 Ammonia 54 mcmol/L (16-53) H 12/19/17 03:56 Serum Total Protein 5.0 g/dL (6.4-8.9) L 12/24/17 03:30 Globulin 1.3 g/dL (2.4-3.5) L 12/24/17 03:30 Albumin/Globulin Ratio 2.8 (1.1-2.2) H 12/24/17 03:30 Stool Occult Blood Positive (Negative) A 12/22/17 13:57 Salicylates < 2.5 mg/dL (15.0-30.0) L 12/19/17 03:56 Acetaminophen < 10 mcg/mL (10-20) L 12/19/17 03:56 - Microbiology Findings Microbiology Findings: Microbiology, Last 48 Hours 12/23/17 13:25 Blood Culture - Preliminary Peripheral Central Cath, Picc Culture is incubating and being continuously monitored for growth. Final report to follow. 12/23/17 13:22 Blood Culture - Preliminary Peripheral Venipuncture Culture is incubating and being continuously monitored for growth. Final report to follow. 12/23/17 13:30 Blood Culture - Preliminary Peripheral Central Cath, Picc Culture is incubating and being continuously monitored for growth. Final report to follow. 12/23/17 13:22 Blood Culture - Preliminary Peripheral Venipuncture Culture is incubating and being continuously monitored for growth. Final report to follow. - Clinical Findings Intake & Output: Intake & Output 12/23/17 12/24/17 12/24/17 23:59 07:59 15:59 Intake Total 200 / 200 658 / 658 0 / 0 Output Total 2800 / 2800 700 / 700 350 / 350 Balance -2600 / -2600 -42 / -42 -350 / -350 Weight 83 kg - Attending Attestation The history, physical exam, and medical decision making was performed by the medical student either while I was physically present and actively involved or I personally re-performed the exam and medical decision making. I have verified the accuracy of the medical student's documentation with regards to the history, physical exam findings, and medical decision making. Labs, radiology, chart personally reviewed. 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 Clinically there is still some evidence of GI bleed and need transfusion packed RBC Heme: DVT prophylaxis per routine. Continue monitoring H&H ID: Continue antibiotics and plan to de-escalation Renal; urine out put and renal funtion reviewed Endorcine: blood glucose is monitored Lines: all lines checked and no evidence of infections Skin: skin care to prevent pressure ulcers per nursing routine care
[2017-12-24] MEDS: *HR* LORazepam 2 MG/ML VIAL IVP PRN (12:22)
[2017-12-24 12:56] LABS: Basophils # 0.1 K/mcL (0.0-0.2); Basophils % 0.8 %; Eosinophils # 0.2 K/mcL (0.0-0.6); Eosinophils % 2.9 %; Hematocrit 30.1 % (37.5-50.1); Hemoglobin 9.4 g/dL (12.9-16.9); Immature Granulocytes % 0.5 % (0-4); Lymphocytes # 0.8 K/mcL (0.6-4.6); Lymphocytes % 11.2 %; Mean Corpuscular HGB Conc 31.2 g/dL (31.6-35.5); Mean Corpuscular Hemoglobin 29.9 pg (28.0-33.3); Mean Corpuscular Volume 95.9 fL (83.0-100.0); Mean Platelet Volume 9.2 fL (9.4-12.4); Monocytes # 1.1 K/mcL (0.0-1.3); Monocytes % 14.3 %; Neutrophils # 5.2 K/mcL (1.6-8.9); Platelet Count 177 K/mcL (140-400); Red Blood Count 3.14 M/mcL (4.19-5.50); Red Cell Distribution Width 15.4 % (11.5-14.5); Segmented Neutrophils % 70.3 %
[2017-12-24 18:24] LABS: Basophils # 0.1 K/mcL (0.0-0.2); Basophils % 0.9 %; Eosinophils # 0.2 K/mcL (0.0-0.6); Eosinophils % 2.8 %; Hematocrit 29.4 % (37.5-50.1); Hemoglobin 9.4 g/dL (12.9-16.9); Immature Granulocytes % 0.7 % (0-4); Lymphocytes # 0.7 K/mcL (0.6-4.6); Lymphocytes % 9.8 %; Mean Corpuscular Hemoglobin 30.2 pg (28.0-33.3); Mean Corpuscular Volume 94.5 fL (83.0-100.0); Mean Platelet Volume 9.7 fL (9.4-12.4); Monocytes # 1.1 K/mcL (0.0-1.3); Monocytes % 14.7 %; Neutrophils # 5.3 K/mcL (1.6-8.9); Platelet Count 199 K/mcL (140-400); Red Blood Count 3.11 M/mcL (4.19-5.50); Red Cell Distribution Width 15.4 % (11.5-14.5); Segmented Neutrophils % 71.1 %
--- NOTE | 2017-12-24 19:03 | General Surgery Progress Note ---
Date of Encounter: 12/24/17 Time of Encounter: 18:58 Subjective Narrative: General Surgery - GI coverage Patient appears stable; maximum temperature 99.5, currently 98.9. Pulse 92- 95, respirations 1818-19, blood pressure 109/61 - off pressors Hemoglobin ranging from 8.9 9.4 from 03:30 this morning to 1800 tonight. Impression: Acceptable status. Upper GI hemorrhage secondary to large duodenal ulcers. Recommendation: Continue to monitor, allow clear liquids If recurrent bleed, will consider repeat EGD and re-attempt to control the large duodenal ulcer. Objective Vital Signs - Last 8 Hours Temp Pulse Resp BP Pulse Ox 12/24/17 18:00 91 15 102/61 94 12/24/17 17:00 87 18 122/60 94 12/24/17 16:32 19 99 12/24/17 16:00 87 19 111/57 95 12/24/17 15:00 80 12 107/60 98 12/24/17 14:00 89 14 103/56 96 12/24/17 13:00 93 20 109/60 92 12/24/17 12:00 92 19 109/61 94 12/24/17 11:56 98.9 F 95 18 131/67 98 12/24/17 11:11 18 98 12/24/17 11:00 95 19 131/67 96 Intake and Output 12/24/17 12/24/17 12/24/17 07:59 15:59 23:59 Intake Total 658 / 658 620 / 620 204 / 204 Output Total 700 / 700 1150 / 1150 1400 / 1400 Balance -42 / -42 -530 / -530 -1196 / -1196 Intake: IV Fluids 658 / 658 300 / 300 204 / 204 Levophed 4 MG In Dextrose 5% 254 / 254 250 ML @ 8 MCG/MIN 30.48 mls/hr IVC CONT [facility] Rx#:[id number] SandoSTATIN 400 MCG In 0.9 % 104 / 104 104 / 104 Sodium Chloride 100 ML @ 25 MCG /HR 6.5 mls/hr IVC .Q16H [facility] Rx #:[id number] Protonix 40 MG In 0.9 % Sodium 200 / 200 100 / 100 100 / 100 Chloride (Mini-Bag +) 100 ML @ 20 mls/hr IVC .Q5H [facility] Rx#: [id number] Flexbumin 25 gm In 100 ml @ 60 100 / 100 mls/hr IVPB ONCE ONE Rx#: [id number] Zosyn 3.375 GM In 0.9 % Sodium 100 / 100 100 / 100 Chloride (Mini-Bag +) 100 ML @ 25 mls/hr IVPB Q8HR [facility] Rx#: [id number] Blood Product 320 / 320 Rbcs Leuko Poor As-1 Unit 320 / 320 [id number] Output: Catheter 700 / 700 1150 / 1150 1400 / 1400 Other: Stool Size Small Small Stool Consistency liquid liquid Stool Characteristics Tarry Stool Color Dark Red Blood Black Dark Red Blood # Bowel Movements 1 Weight 83 kg Patient Weight 12/24/17 23:59 Weight 83 kg - Labs 12/24/17 18:00 12/24/17 03:30 Diabetes panel 12/24/17 Range/Units 03:30 Sodium 133 L (136-145) mEq/L Potassium 4.8 (3.5-5.1) mEq/L Chloride 92 L (98-107) mEq/L Carbon Dioxide 41 H* (23-29) mEq/L BUN 6 L (8-23) mg/dL Creatinine 0.33 L (0.70-1.30) mg/dL Glucose 126 H (70-105) mg/dL Calcium 8.4 L (8.6-10.3) mg/dL AST 11 L (13-39) Units/L ALT 11 (7-52) Units/L Alkaline Phosphatase 34 (34-104) Units/L Albumin 3.7 (3.5-5.7) g/dL Calcium panel 12/24/17 Range/Units 03:30 Calcium 8.4 L (8.6-10.3) mg/dL Phosphorus 4.2 (2.7-4.5) mg/dL Albumin 3.7 (3.5-5.7) g/dL Pituitary panel 12/24/17 Range/Units 03:30 Sodium 133 L (136-145) mEq/L Potassium 4.8 (3.5-5.1) mEq/L Chloride 92 L (98-107) mEq/L Carbon Dioxide 41 H* (23-29) mEq/L BUN 6 L (8-23) mg/dL Creatinine 0.33 L (0.70-1.30) mg/dL Glucose 126 H (70-105) mg/dL Calcium 8.4 L (8.6-10.3) mg/dL Adrenal panel 12/24/17 Range/Units 03:30 Sodium 133 L (136-145) mEq/L Potassium 4.8 (3.5-5.1) mEq/L Chloride 92 L (98-107) mEq/L Carbon Dioxide 41 H* (23-29) mEq/L BUN 6 L (8-23) mg/dL Creatinine 0.33 L (0.70-1.30) mg/dL Glucose 126 H (70-105) mg/dL Calcium 8.4 L (8.6-10.3) mg/dL Total Bilirubin 0.9 (0.3-1.0) mg/dL AST 11 L (13-39) Units/L ALT 11 (7-52) Units/L Alkaline Phosphatase 34 (34-104) Units/L Albumin 3.7 (3.5-5.7) g/dL - VTE Documentation of Mechanical Device: Intermittent pneumatic compression device Consult Discharge Plan - Plan [facility]errals: [facility] [Primary Care Provider[facility] -
[2017-12-24] MEDS: Ondansetron 4 MG/2 ML VIAL IVP PRN (19:29)
[2017-12-25 01:46] LABS: Basophils # 0.1 K/mcL (0.0-0.2); Basophils % 0.8 %; Eosinophils # 0.2 K/mcL (0.0-0.6); Eosinophils % 2.2 %; Hematocrit 30.7 % (37.5-50.1); Hemoglobin 9.7 g/dL (12.9-16.9); Immature Granulocytes % 0.5 % (0-4); Lymphocytes # 0.5 K/mcL (0.6-4.6); Lymphocytes % 6.6 %; Mean Corpuscular HGB Conc 31.6 g/dL (31.6-35.5); Mean Corpuscular Hemoglobin 30.2 pg (28.0-33.3); Mean Corpuscular Volume 95.6 fL (83.0-100.0); Mean Platelet Volume 10.1 fL (9.4-12.4); Monocytes # 1.1 K/mcL (0.0-1.3); Monocytes % 14.2 %; Neutrophils # 5.8 K/mcL (1.6-8.9); Platelet Count 214 K/mcL (140-400); Red Blood Count 3.21 M/mcL (4.19-5.50); Red Cell Distribution Width 15.3 % (11.5-14.5); Segmented Neutrophils % 75.7 %
[2017-12-25] MEDS: Pantoprazole 40 MG in 0.9 % Sodium Chloride Mini Bag 100 ML IVC SCH ×2 (02:05→11:01)
[2017-12-25 04:17] LABS: Basophils # 0.1 K/mcL (0.0-0.2); Basophils % 0.7 %; Eosinophils # 0.2 K/mcL (0.0-0.6); Eosinophils % 2.1 %; Hematocrit 29.5 % (37.5-50.1); Hemoglobin 9.4 g/dL (12.9-16.9); Immature Granulocytes % 0.5 % (0-4); Lymphocytes # 0.4 K/mcL (0.6-4.6); Lymphocytes % 4.9 %; Mean Corpuscular HGB Conc 31.9 g/dL (31.6-35.5); Mean Corpuscular Hemoglobin 29.8 pg (28.0-33.3); Mean Corpuscular Volume 93.7 fL (83.0-100.0); Mean Platelet Volume 9.8 fL (9.4-12.4); Monocytes # 0.9 K/mcL (0.0-1.3); Monocytes % 11.2 %; Neutrophils # 6.6 K/mcL (1.6-8.9); Platelet Count 222 K/mcL (140-400); Red Blood Count 3.15 M/mcL (4.19-5.50); Red Cell Distribution Width 15.3 % (11.5-14.5); Segmented Neutrophils % 80.6 %
[2017-12-25] MEDS: Ipratropium/Albuterol Neb 3 ML IH SCH ×6 (04:20→23:53)
[2017-12-25 04:43] LABS: Alanine Aminotransferase 15 Units/L (7-52); Albumin 4.1 g/dL (3.5-5.7); Albumin/Globulin Ratio 2.7 (1.1-2.2); Alkaline Phosphatase 36 Units/L (34-104); Aspartate Amino Transferase 15 Units/L (13-39); BUN/Creatinine Ratio 15 (6-26); Bilirubin,Total 1.7 mg/dL (0.3-1.0); Blood Urea Nitrogen 6 mg/dL (8-23); Calcium 8.9 mg/dL (8.6-10.3); Carbon Dioxide 42 mEq/L (23-29); Chloride 88 mEq/L (98-107); Globulin 1.5 g/dL (2.4-3.5); Glucose 103 mg/dL (70-105); Magnesium 2.1 mg/dL (1.6-2.6); Osmolality,Calculated 274 (280-300); Phosphorous 4.4 mg/dL (2.7-4.5); Potassium 3.9 mEq/L (3.5-5.1); Sodium 133 mEq/L (136-145); Total Protein 5.6 g/dL (6.4-8.9); eGFR For Non-African Americans > 60 (> 60)
[2017-12-25] MEDS: Thiamine (B-1) 100 MG TABLET PO SCH (07:35)
[2017-12-25] MEDS: Ondansetron 4 MG/2 ML VIAL IVP PRN (07:35)
[2017-12-25] MEDS: Cholecalciferol (D-3) 1,000 UNIT TABLET PO SCH (07:35)
[2017-12-25] MEDS: Folic Acid 1 MG TABLET PO SCH (07:35)
[2017-12-25] MEDS: Furosemide 40 MG TABLET PO SCH (07:35)
[2017-12-25] MEDS: Piperacillin/Tazobactam 3.375 GM in 0.9 % Sodium Chloride Mini Bag 100 ML IVPB SCH ×2 (07:35→15:37)
[2017-12-25] MEDS: Vitamin B Complex/Vit C/Vit E 1 EACH TABLET PO SCH (07:35)
[2017-12-25] MEDS: Multivit/Ca/Min/Fe/FA 1 TAB TABLET PO SCH (07:35)
[2017-12-25] MEDS: Budesonide/Formoterol 160/4.5 1 PUFF INH IH SCH ×2 (07:58→20:17)
--- NOTE | 2017-12-25 08:34 | Pulmonology Progress Note ---
<Dane Barr M - Last Filed: 12/25/17 10:32> Date of Encounter: 12/25/17 Objective PUL Vital signs: Last Vital Signs Temp 98 F 12/25/17 09:00 Pulse 104 12/25/17 10:00 Resp 12 12/25/17 10:00 BP 115/66 12/25/17 10:00 Pulse Ox 97 12/25/17 10:00 Results - Laboratory Findings CBC and BMP: 12/25/17 03:55 12/25/17 03:55 ABG ABG pH 7.33 pH Units (7.32-7.45) 12/19/17 04:18 ABG pCO2 64 mmHg (35-45) H 12/19/17 04:18 ABG pO2 85 mmHg (85-104) 12/19/17 04:18 ABG O2 Saturation 95 % (95-98) 12/19/17 04:18 PT/INR, D-dimer PT 13.1 Seconds (9.4-12.1) H 12/23/17 03:05 D-Dimer 1385 ng/mLFEU (0-500) H 12/19/17 02:26 Abnormal lab findings: Abnormal lab results RBC 3.15 M/mcL (4.19-5.50) L 12/25/17 03:55 Hgb 9.4 g/dL (12.9-16.9) L 12/25/17 03:55 Hct 29.5 % (37.5-50.1) L 12/25/17 03:55 RDW 15.3 % (11.5-14.5) H 12/25/17 03:55 Lymphocytes # 0.4 K/mcL (0.6-4.6) L 12/25/17 03:55 Nucleated RBCs/100 WBC 0.3 /100 WBC (0) H 12/21/17 05:52 PT 13.1 Seconds (9.4-12.1) H 12/23/17 03:05 D-Dimer 1385 ng/mLFEU (0-500) H 12/19/17 02:26 ABG pCO2 64 mmHg (35-45) H 12/19/17 04:18 ABG HCO3 34 mEq/L (21-27) H 12/19/17 04:18 ABG Total CO2 36 mEq/L (20-26) H 12/19/17 04:18 ABG Base Excess 4 mEq/L (-2 to 3) H 12/19/17 04:18 Sodium 133 mEq/L (136-145) L 12/25/17 03:55 Chloride 88 mEq/L (98-107) L 12/25/17 03:55 Carbon Dioxide 42 mEq/L (23-29) H* 12/25/17 03:55 BUN 6 mg/dL (8-23) L 12/25/17 03:55 Creatinine 0.39 mg/dL (0.70-1.30) L 12/25/17 03:55 POC Glucose 108 mg/dL (70-99) H 12/22/17 05:35 Serum Osmolality 256 mOsm/kg (280-300) L 12/19/17 02:26 Calculated Osmolality 274 (280-300) L 12/25/17 03:55 Total Bilirubin 1.7 mg/dL (0.3-1.0) H 12/25/17 03:55 Ammonia 54 mcmol/L (16-53) H 12/19/17 03:56 Serum Total Protein 5.6 g/dL (6.4-8.9) L 12/25/17 03:55 Globulin 1.5 g/dL (2.4-3.5) L 12/25/17 03:55 Albumin/Globulin Ratio 2.7 (1.1-2.2) H 12/25/17 03:55 Stool Occult Blood Positive (Negative) A 12/22/17 13:57 Salicylates < 2.5 mg/dL (15.0-30.0) L 12/19/17 03:56 Acetaminophen < 10 mcg/mL (10-20) L 12/19/17 03:56 - Microbiology Findings Microbiology Findings: Microbiology, Last 48 Hours 12/23/17 13:25 Blood Culture - Preliminary Peripheral Central Cath, Picc Culture is incubating and being continuously monitored for growth. Final report to follow. 12/23/17 13:22 Blood Culture - Preliminary Peripheral Venipuncture Culture is incubating and being continuously monitored for growth. Final report to follow. 12/23/17 13:30 Blood Culture - Preliminary Peripheral Central Cath, Picc Culture is incubating and being continuously monitored for growth. Final report to follow. 11/15/18 13:22 Blood Culture - Preliminary Peripheral Venipuncture Culture is incubating and being continuously monitored for growth. Final report to follow. - Clinical Findings Intake & Output: Intake & Output 12/24/17 12/25/17 12/25/17 23:59 07:59 15:59 Intake Total 404 / 404 200 / 200 100 / 100 Output Total 2049 875 / 875 325 / 325 Balance -1646 / -1646 -675 / -675 -225 / -225 Weight 83 kg Consult Discharge Plan - Plan [facility]errals: [facility] [Primary Care Provider[facility] - - Attending Attestation I examined this patient and my medical decision-making was reviewed with the Resident Physician. I agree with the documented findings, disposition and treatment plan as described except to the extent set forth below. Patient seen and examined. Labs, radiology, chart personally reviewed. Agree with resident's history and physical, assessment, plan with following comments: STAY CUTTER: Patient follows commands, Pulmonary: Acceptable oxygenation and ventilation and continue incentive spirometry. Cardiovascular: stable and patient is being off vasopressors at this time. GI: Nutrition per dietary and GI prophylaxis per routine. There is no evidence of acute GI bleed. Protonic strip can be changed to twice daily and discontinue octreotide. Heme: DVT prophylaxis per routine. H&H remained stable ID: Continue antibiotics and plan to de-escalation Renal; urine out put and renal funtion reviewed Endorcine: blood glucose is monitored Lines: all lines checked and no evidence of infections Skin: skin care to prevent pressure ulcers per nursing routine care Again patient hemodynamically stable to be transferred to the floor. <Paramjit Rodriguez - Last Filed: 12/25/17 16:45> Date of Encounter: 12/25/17 Time of Encounter: 08:34 Assessment and Plan (1) Duodenal ulcer Current Visit: Yes Status: Acute EGD on 12/22 demonstrated multiple oozing ulcers which were injected with epinephrine by Dr. Vazquez No ulcers visualized in the stomach or esophagus Pt received 1 unit pRBC on 12/24 Was on octreotide for 48 hours, discontinued today Transitioned from Protonix drip to BID IV Protonix H&H 9.4 and 29.5 respectively today Stable and off pressors since yesterday Adequate oxygenation and ventilation on 3lpm O2 Continue scheduled duonebs Continue incentive spirometry Continue Zosyn, Day 4 Hyponaturemia likely 2/2 alcohol abuse. Sodium 133 today. On CIWA protocol. Ok to transfer out of ICU. Spoke with hospitalist and Dr. Dixon accepted the pt. (2) Pneumonia Current Visit: Yes Status: Suspected plan as above Qualifiers: Pneumonia type: aspiration pneumonia Aspiration pneumonia type: unspecified Laterality: right Lung location: lower lobe of lung Qualified Code(s): J69.0 - Pneumonitis due to inhalation of food and vomit (3) Anemia Current Visit: Yes Status: Acute plan as above Qualifiers: Anemia type: unspecified type Qualified Code(s): D64.9 - Anemia, unspecified (4) Hyponatremia Current Visit: Yes Status: Acute plan as above (5) Alcohol abuse Current Visit: Yes Status: Chronic plan as above (6) Hypotension Current Visit: Yes Status: Resolved plan as above Qualifiers: Hypotension type: unspecified hypotension type Qualified Code(s): I95.9 - Hypotension, unspecified (7) DVT prophylaxis Current Visit: Yes Status: Acute EPCDs Subjective Principal diagnosis: Hypotension Interval history: Pt seen and examined at bedside. No acute events overnight. Pt states he "doesn't feel great", but denies any new or acute complaints. Objective PUL Vital signs: Last Vital Signs Temp 98 F 12/25/17 07:55 Pulse 89 12/25/17 07:55 Resp 16 12/25/17 07:58 BP 122/72 12/25/17 07:55 Pulse Ox 96 12/25/17 07:58 General appearance: alert, appears uncomfortable Eyes: nonicteric ENT: oropharynx moist Neck: supple Effort: normal Auscultation: bilateral: clear Percussion: bilateral: not dull Tactile fremitus: bilateral: normal Cardiovascular: regular rate and rhythm Gastrointestinal: normoactive bowel sounds, soft, tender, non-distended Integumentary: normal Extremities: no cyanosis, no clubbing, pink and warm, pulses normal, edema Musculoskeletal: no deformities normal mental status, non-focal exam, pupils equal and round, motor strength normal and symmetric mood appropriate, affect normal Results - Laboratory Findings CBC and BMP: 12/25/17 03:55 12/25/17 03:55 ABG ABG pH 7.33 pH Units (7.32-7.45) 12/19/17 04:18 ABG pCO2 64 mmHg (35-45) H 12/19/17 04:18 ABG pO2 85 mmHg (85-104) 12/19/17 04:18 ABG O2 Saturation 95 % (95-98) 12/19/17 04:18 PT/INR, D-dimer PT 13.1 Seconds (9.4-12.1) H 12/23/17 03:05 D-Dimer 1385 ng/mLFEU (0-500) H 12/19/17 02:26 Abnormal lab findings: Abnormal lab results RBC 3.15 M/mcL (4.19-5.50) L 12/25/17 03:55 Hgb 9.4 g/dL (12.9-16.9) L 12/25/17 03:55 Hct 29.5 % (37.5-50.1) L 12/25/17 03:55 RDW 15.3 % (11.5-14.5) H 12/25/17 03:55 Lymphocytes # 0.4 K/mcL (0.6-4.6) L 12/25/17 03:55 Nucleated RBCs/100 WBC 0.3 /100 WBC (0) H 12/21/17 05:52 PT 13.1 Seconds (9.4-12.1) H 12/23/17 03:05 D-Dimer 1385 ng/mLFEU (0-500) H 12/19/17 02:26 ABG pCO2 64 mmHg (35-45) H 12/19/17 04:18 ABG HCO3 34 mEq/L (21-27) H 12/19/17 04:18 ABG Total CO2 36 mEq/L (20-26) H 12/19/17 04:18 ABG Base Excess 4 mEq/L (-2 to 3) H 12/19/17 04:18 Sodium 133 mEq/L (136-145) L 12/25/17 03:55 Chloride 88 mEq/L (98-107) L 12/25/17 03:55 Carbon Dioxide 42 mEq/L (23-29) H* 12/25/17 03:55 BUN 6 mg/dL (8-23) L 12/25/17 03:55 Creatinine 0.39 mg/dL (0.70-1.30) L 12/25/17 03:55 POC Glucose 108 mg/dL (70-99) H 12/22/17 05:35 Serum Osmolality 256 mOsm/kg (280-300) L 12/19/17 02:26 Calculated Osmolality 274 (280-300) L 12/25/17 03:55 Total Bilirubin 1.7 mg/dL (0.3-1.0) H 12/25/17 03:55 Ammonia 54 mcmol/L (16-53) H 12/19/17 03:56 Serum Total Protein 5.6 g/dL (6.4-8.9) L 12/25/17 03:55 Globulin 1.5 g/dL (2.4-3.5) L 12/25/17 03:55 Albumin/Globulin Ratio 2.7 (1.1-2.2) H 12/25/17 03:55 Stool Occult Blood Positive (Negative) A 12/22/17 13:57 Salicylates < 2.5 mg/dL (15.0-30.0) L 12/19/17 03:56 Acetaminophen < 10 mcg/mL (10-20) L 12/19/17 03:56 - Microbiology Findings Microbiology Findings: Microbiology, Last 48 Hours 12/23/17 13:25 Blood Culture - Preliminary Peripheral Central Cath, Picc Culture is incubating and being continuously monitored for growth. Final report to follow. 12/23/17 13:22 Blood Culture - Preliminary Peripheral Venipuncture Culture is incubating and being continuously monitored for growth. Final report to follow. 12/23/17 13:30 Blood Culture - Preliminary Peripheral Central Cath, Picc Culture is incubating and being continuously monitored for growth. Final report to follow. 12/23/17 13:22 Blood Culture - Preliminary Peripheral Venipuncture Culture is incubating and being continuously monitored for growth. Final report to follow. - Clinical Findings Intake & Output: Intake & Output 12/24/17 12/25/17 12/25/17 23:59 07:59 15:59 Intake Total 404 / 404 200 / 200 100 / 100 Output Total 2049 875 / 875 325 / 325 Balance -1646 / -1646 -675 / -675 -225 / -225 Weight 83 kg - VTE Documentation of Mechanical Device: Intermittent pneumatic compression device
[2017-12-25] MEDS ORDERED: 0.9 % Sodium Chloride 500 ML ONE (10:14)
[2017-12-25] MEDS: Octreotide 400 MCG in 0.9 % Sodium Chloride 100 ML IVC SCH (11:00)
[2017-12-25] MEDS: *HR* LORazepam 2 MG/ML VIAL IVP PRN (12:46)
--- NOTE | 2017-12-25 12:57 | General Surgery Progress Note ---
Date of Encounter: 12/25/17 Time of Encounter: 12:49 Subjective Patient reports: no new complaints Narrative: General Surgery - GIB Patient voicing no complaints. No evidence of recurrent GI bleed Patient remains afebrile, hemodynamically stable - pulse currently 98, as high as 104; respirations 16-20; blood pressure 103/67 - 115/66 Lungs: Bilaterally diminished breath sounds; no audible wheezes. Patient continues to require 5-6 L/m oxygen supplementation to maintain SPO2 95-96% Abdomen: Soft with no obvious tenderness. No detected intra-abdominal leonidas s. Tolerating clear liquid diet Labs: White count 8.2, hemoglobin 9.4 with hematocrit 29.5 - stable Impression: 62-year-old with history of both tobacco and alcohol abuse referred for further evaluation and treatment of active GI bleed. EGD 12/22/17 demonstrated 2 large cratered duodenal ulcers. The ulcers demonstrated stigmata of recent hemorrhage. Treated with endoscopically injected epinephrine and application of Hemaspray. No obvious recurrent upper GI hemorrhage. Patient remains at risk for recurrent upper GI hemorrhage. Recommendations: May advance diet Continue to monitor for recurrent upper gastrointestinal hemorrhage. Avoid aspirin, steroids, nonsteroidal anti-inflammatories. Alcohol cessation strongly recommended Objective Vital Signs - Last 8 Hours Temp Pulse Resp BP Pulse Ox 12/25/17 12:00 98 20 103/67 95 12/25/17 11:52 16 96 12/25/17 11:05 97 12/25/17 11:00 104 16 115/66 97 12/25/17 10:00 104 18 115/66 97 12/25/17 09:00 98 F 89 20 122/72 97 12/25/17 07:58 16 96 12/25/17 07:55 98 F 89 20 122/72 97 12/25/17 07:49 97 12/25/17 07:00 87 20 115/62 98 12/25/17 06:00 99 20 110/64 98 12/25/17 05:00 92 24 117/64 97 12/25/17 04:56 99.3 F Intake and Output 12/24/17 12/25/17 12/25/17 23:59 07:59 15:59 Intake Total 404 / 404 200 / 200 649 / 649 Output Total 2049 / 2049 875 / 875 2325 / 2325 Balance -1646 / -1646 -675 / -675 -1676 / -1676 Intake: IV Fluids 404 / 404 200 / 200 249 / 249 SandoSTATIN 400 MCG In 0.9 % 104 / 104 49 / 49 Sodium Chloride 100 ML @ 25 MCG /HR 6.5 mls/hr IVC .Q16H [facility] Rx #:[id number] Protonix 40 MG In 0.9 % Sodium 200 / 200 100 / 100 100 / 100 Chloride (Mini-Bag +) 100 ML @ 20 mls/hr IVC .Q5H [facility] Rx#: [id number] Zosyn 3.375 GM In 0.9 % Sodium 100 / 100 100 / 100 100 / 100 Chloride (Mini-Bag +) 100 ML @ 25 mls/hr IVPB Q8HR [facility] Rx#: [id number] Oral 400 / 400 Output: Catheter 2049 / 2049 875 / 875 2325 / 2325 Other: Weight 83 kg Patient Weight 12/25/17 23:59 Weight 83 kg - Labs 12/25/17 03:55 12/25/17 03:55 Diabetes panel 12/25/17 Range/Units 03:55 Sodium 133 L (136-145) mEq/L Potassium 3.9 (3.5-5.1) mEq/L Chloride 88 L (98-107) mEq/L Carbon Dioxide 42 H* (23-29) mEq/L BUN 6 L (8-23) mg/dL Creatinine 0.39 L (0.70-1.30) mg/dL Glucose 103 (70-105) mg/dL Calcium 8.9 (8.6-10.3) mg/dL AST 15 (13-39) Units/L ALT 15 (7-52) Units/L Alkaline Phosphatase 36 (34-104) Units/L Albumin 4.1 (3.5-5.7) g/dL Calcium panel 12/25/17 Range/Units 03:55 Calcium 8.9 (8.6-10.3) mg/dL Phosphorus 4.4 (2.7-4.5) mg/dL Albumin 4.1 (3.5-5.7) g/dL Pituitary panel 12/25/17 Range/Units 03:55 Sodium 133 L (136-145) mEq/L Potassium 3.9 (3.5-5.1) mEq/L Chloride 88 L (98-107) mEq/L Carbon Dioxide 42 H* (23-29) mEq/L BUN 6 L (8-23) mg/dL Creatinine 0.39 L (0.70-1.30) mg/dL Glucose 103 (70-105) mg/dL Calcium 8.9 (8.6-10.3) mg/dL Adrenal panel 12/25/17 Range/Units 03:55 Sodium 133 L (136-145) mEq/L Potassium 3.9 (3.5-5.1) mEq/L Chloride 88 L (98-107) mEq/L Carbon Dioxide 42 H* (23-29) mEq/L BUN 6 L (8-23) mg/dL Creatinine 0.39 L (0.70-1.30) mg/dL Glucose 103 (70-105) mg/dL Calcium 8.9 (8.6-10.3) mg/dL Total Bilirubin 1.7 H (0.3-1.0) mg/dL AST 15 (13-39) Units/L ALT 15 (7-52) Units/L Alkaline Phosphatase 36 (34-104) Units/L Albumin 4.1 (3.5-5.7) g/dL - VTE Documentation of Mechanical Device: Intermittent pneumatic compression device Consult Discharge Plan - Plan [facility]errals: [facility] [Primary Care Provider] -
[2017-12-25] MEDS ORDERED: *HR* LORazepam 2 MG/ML VIAL IVP PRN (15:09)
[2017-12-25] MEDS ORDERED: Naloxone 0.4 MG/ML INJ IVP PRN (15:09)
[2017-12-25] MEDS ORDERED: Ondansetron 4 MG/2 ML VIAL IVP PRN (15:09)
[2017-12-25] MEDS: Pantoprazole 40 MG VIAL IVP SCH (17:07)
[2017-12-25] MEDS ORDERED: Pantoprazole 40 MG VIAL IVP SCH (18:00)
[2017-12-25 18:30] LABS: Basophils # 0.1 K/mcL (0.0-0.2); Basophils % 0.6 %; Eosinophils # 0.2 K/mcL (0.0-0.6); Eosinophils % 1.8 %; Hematocrit 34.1 % (37.5-50.1); Hemoglobin 10.9 g/dL (12.9-16.9); Immature Granulocytes % 0.7 % (0-4); Lymphocytes # 0.7 K/mcL (0.6-4.6); Lymphocytes % 8.1 %; Mean Corpuscular Hemoglobin 30.4 pg (28.0-33.3); Mean Platelet Volume 9.9 fL (9.4-12.4); Monocytes # 0.9 K/mcL (0.0-1.3); Monocytes % 10.3 %; Neutrophils # 6.5 K/mcL (1.6-8.9); Platelet Count 251 K/mcL (140-400); Red Blood Count 3.59 M/mcL (4.19-5.50); Red Cell Distribution Width 14.9 % (11.5-14.5); Segmented Neutrophils % 78.5 %
[2017-12-25 22:42] LABS: Basophils # 0.1 K/mcL (0.0-0.2); Basophils % 0.6 %; Eosinophils # 0.1 K/mcL (0.0-0.6); Eosinophils % 1.4 %; Hematocrit 32.1 % (37.5-50.1); Hemoglobin 10.3 g/dL (12.9-16.9); Immature Granulocytes % 0.4 % (0-4); Lymphocytes # 0.5 K/mcL (0.6-4.6); Lymphocytes % 5.9 %; Mean Corpuscular HGB Conc 32.1 g/dL (31.6-35.5); Mean Corpuscular Hemoglobin 29.9 pg (28.0-33.3); Mean Corpuscular Volume 93.3 fL (83.0-100.0); Mean Platelet Volume 9.2 fL (9.4-12.4); Monocytes # 1.2 K/mcL (0.0-1.3); Monocytes % 13.3 %; Neutrophils # 7.1 K/mcL (1.6-8.9); Platelet Count 252 K/mcL (140-400); Red Blood Count 3.44 M/mcL (4.19-5.50); Red Cell Distribution Width 14.7 % (11.5-14.5); Segmented Neutrophils % 78.4 %
[2017-12-26] MEDS: Piperacillin/Tazobactam 3.375 GM in 0.9 % Sodium Chloride Mini Bag 100 ML IVPB SCH ×3 (01:07→15:18)
[2017-12-26] MEDS: Ipratropium/Albuterol Neb 3 ML IH SCH ×5 (03:39→19:57)
[2017-12-26 04:23] LABS: Basophils % 0.4 %; Eosinophils # 0.1 K/mcL (0.0-0.6); Eosinophils % 1.3 %; Hematocrit 31.3 % (37.5-50.1); Hemoglobin 10.2 g/dL (12.9-16.9); Immature Granulocytes % 0.4 % (0-4); Lymphocytes # 0.5 K/mcL (0.6-4.6); Lymphocytes % 5.7 %; Mean Corpuscular HGB Conc 32.6 g/dL (31.6-35.5); Mean Corpuscular Hemoglobin 29.8 pg (28.0-33.3); Mean Corpuscular Volume 91.5 fL (83.0-100.0); Mean Platelet Volume 10.1 fL (9.4-12.4); Monocytes # 1.2 K/mcL (0.0-1.3); Monocytes % 12.5 %; Neutrophils # 7.3 K/mcL (1.6-8.9); Platelet Count 281 K/mcL (140-400); Red Blood Count 3.42 M/mcL (4.19-5.50); Red Cell Distribution Width 14.8 % (11.5-14.5); Segmented Neutrophils % 79.7 %
[2017-12-26 04:41] LABS: Alanine Aminotransferase 16 Units/L (7-52); Albumin 4.2 g/dL (3.5-5.7); Albumin/Globulin Ratio 2.3 (1.1-2.2); Alkaline Phosphatase 44 Units/L (34-104); Aspartate Amino Transferase 14 Units/L (13-39); BUN/Creatinine Ratio 18 (6-26); Bilirubin,Total 1.4 mg/dL (0.3-1.0); Blood Urea Nitrogen 8 mg/dL (8-23); Calcium 9.5 mg/dL (8.6-10.3); Carbon Dioxide 32 mEq/L (23-29); Chloride 90 mEq/L (98-107); Globulin 1.8 g/dL (2.4-3.5); Glucose 108 mg/dL (70-105); Osmolality,Calculated 273 (280-300); Potassium 3.4 mEq/L (3.5-5.1); Sodium 132 mEq/L (136-145); eGFR For Non-African Americans > 60 (> 60)
[2017-12-26] MEDS: Pantoprazole 40 MG VIAL IVP SCH ×2 (06:10→17:22)
[2017-12-26] MEDS: Budesonide/Formoterol 160/4.5 1 PUFF INH IH SCH ×2 (07:21→19:57)
[2017-12-26] MEDS: Vitamin B Complex/Vit C/Vit E 1 EACH TABLET PO SCH (08:28)
[2017-12-26] MEDS: Thiamine (B-1) 100 MG TABLET PO SCH (08:28)
[2017-12-26] MEDS: Cholecalciferol (D-3) 1,000 UNIT TABLET PO SCH (08:28)
[2017-12-26] MEDS: Multivit/Ca/Min/Fe/FA 1 TAB TABLET PO SCH (08:29)
[2017-12-26] MEDS: Folic Acid 1 MG TABLET PO SCH (08:29)
[2017-12-26] MEDS: Furosemide 40 MG TABLET PO SCH (08:29)
--- NOTE | 2017-12-26 08:56 | Electrocardiograph Report ---
[address] [place], [place] [address] Test Date: 2017-12-23 Pat Name: Jeferson Crowder Department: 112 Room: 3A36 Gender: M Staffing Consultant: : 1955 Requested By: Mat Silva Order Number: [id number] Reading MD: Hillary Szymanski Measurements Intervals [place] Rate: 111 P: 61 HI: 176 QRS: 34 QRSD: 113 T: 38 QT: 312 QTc: 378 Interpretive Statements SINUS TACHYCARDIA INTRAVENTRICULAR CONDUCTION DELAY ABNORMAL RHYTHM ECG Electronically Signed On 12-26-2017 8:54:42 EST by Hillary Szymanski
--- NOTE | 2017-12-26 13:54 | Internal Med Progress Note ---
Hospitalist Progress Note - Encounter Date of Encounter: 12/26/17 Time of Encounter: 09:30 - Subjective Interval History: awake in bed, comoftable on room air, denies sob, cough, wheezing. no abd pain, n/v. he has not had bm since bleed. + flatus. eating and drinking without issue - Exam Vitals: Temp Pulse Resp BP Pulse Ox 97.8 F 100 16 115/70 90 12/26/17 11:58 12/26/17 11:58 12/26/17 11:58 12/26/17 11:58 12/26/17 11:58 Exam: gen- alert, awake,appears stated age eyes- pupils equal round, no conjunctival pallor cv- reg rate and rhythm, normal s1,s2, no murmurs appreciated, no le edema lungs- ctabl, no wheezing, rhonchi or crackles, normal resp effort on ra abd- soft, non tender, non distended, + bs neuro- AAOx3, no hand tremor - Assessment and Plan (1) Acute respiratory failure with hypoxia Current Visit: Yes Status: Resolved Assessment and Plan: Acute hypoxic and hypercarbic Resp failure 2/2 pleural effusion and suspected aspiration Pneumonia CTA without PE or clear consolidation imaging has consistently shown right sided effusion, small on CXR 12/23 -checked echo with bubble and small pfo/asd with mild atrial enlargement and no rmal eF pna treatment as below po daily lasix weaned to room air (2) Pneumonia Current Visit: Yes Status: Inactive Assessment and Plan: see above pulm followed in icu Continue scheduled duonebs Continue incentive spirometry Continue Zosyn (3) Hyponatremia Current Visit: Yes Status: Acute Assessment and Plan: Hyponatremia-no prior jas to see if this is acute, chronic or acute on chronic plikely 2/2 beer potomania prior to ICU transfer he examined as hypervolemic with effusion and bl le edema, now euvolemic -improving slowly with gentle diuresis po daily, cont to monitor mental status is back to baseline (4) Alcohol abuse Current Visit: Yes Status: Inactive Assessment and Plan: ETOH abuse - ciwa,beginning to withdraw, tele, monitor lytes -check ruq us and coarse non specific echogenic texture to liver of unclear significance -gi consulted (5) Pulmonary HTN Current Visit: Yes Status: Suspected Assessment and Plan: - Suspected pulmonary hypertension by the radiological criteria. however echo cardiogram did not show any evidence of pulmonary hypertension - It would be reasonable to follow-up with a catalog librarian as an outpatient to further work it up (6) Tobacco abuse Current Visit: Yes Status: Chronic Assessment and Plan: -Patient has a history of extensive tobacco abuse. Consult on smoking cessation. nicotine patch prn (7) Altered mental status Current Visit: Yes Status: Resolved Assessment and Plan: - initially p/w altered mental status mulifactorial in nature : hyponatremia hypercarbic on ABG, mildly elevated ammonia (54). no evidence of intracranial abnormality on head CT. TSH, B12 WNL, urology toxicology screen negative -this has since resolved (8) GI bleed Current Visit: Yes Status: Acute Assessment and Plan: 2/2 duodenal ulcers EGD 12/22/17 demonstrated 2 large cratered duodenal ulcers. The ulcers demonstrated stigmata of recent hemorrhage. Treated with endoscopically injected epinephrine and application of Hemaspray by Dr Vazquez No ulcers visualized in the stomach or esophagus Pt received 1 unit pRBC on 12/24 Was on octreotide for 48 hours Transitioned from Protonix drip to BID IV Protonix Stable and off pressors 12/24 and transferred to floor adat, cont to monitor for bleeding, PPI Avoid aspirin, steroids, nonsteroidal anti-inflammatories. stop etoh use (9) Duodenal ulcer Current Visit: Yes Status: Acute Assessment and Plan: see above (10) Acute anemia Current Visit: Yes Status: Acute Assessment and Plan: 2/2 GIB bleed now resolved anemia stable hgb and now slowly uptrending cont to monitor for bleeding DVT Prophylaxis: scd - Time Spent with Patient Total time spent is greater than 50% in coordination of care (as documented) at patient's floor/unit and/or counseling patient: less than 15 minutes Plan of Care Discussed with: patient Internal Medicine: Result - Labs CBC & Chem 7: 12/26/17 03:47 12/26/17 03:47 Labs: Short CBC 12/25/17 12/25/17 12/26/17 Range/Units 17:34 22:36 03:47 WBC 8.3 9.1 9.2 (4.3-11.1) K/mcL Hgb 10.9 L D 10.3 L 10.2 L (12.9-16.9) g/dL Hct 34.1 L 32.1 L 31.3 L (37.5-50.1) % Plt Count 251 252 281 (140-400) K/mcL Neutrophils # 6.5 7.1 7.3 (1.6-8.9) K/mcL BMP 12/26/17 03:47 Sodium 132 L Potassium 3.4 L Chloride 90 L Carbon Dioxide 32 H BUN 8 Creatinine 0.45 L Glucose 108 H Calcium 9.5 Liver Function 12/26/17 Range/Units 03:47 Total Bilirubin 1.4 H (0.3-1.0) mg/dL AST 14 (13-39) Units/L ALT 16 (7-52) Units/L Alkaline Phosphatase 44 (34-104) Units/L Albumin 4.2 (3.5-5.7) g/dL - ABG Interpretation ABG results: ABG ABG pH 7.33 pH Units (7.32-7.45) 12/19/17 04:18 ABG pCO2 64 mmHg (35-45) H 12/19/17 04:18 ABG pO2 85 mmHg (85-104) 12/19/17 04:18 ABG O2 Saturation 95 % (95-98) 12/19/17 04:18 PT/INR, D-dimer PT 13.1 Seconds (9.4-12.1) H 12/23/17 03:05 D-Dimer 1385 ng/mLFEU (0-500) H 12/19/17 02:26 - VTE Documentation of Mechanical Device: Intermittent pneumatic compression device Consult Discharge Plan - Plan Referrals: [facility] [Primary Care Provider] - (2) Pneumonia Qualifiers: Pneumonia type: aspiration pneumonia Aspiration pneumonia type: unspecified Laterality: right Lung location: lower lobe of lung Qualified Code(s): J69.0 - Pneumonitis due to inhalation of food and vomit (7) Altered mental status Qualifiers: Altered mental status type: unspecified Qualified Code(s): R41.82 - Altered mental status, unspecified (8) GI bleed Qualifiers: GI bleed type/associated pathology: duodenal ulcer Qualified Code(s): K26.4 - Chronic or unspecified duodenal ulcer with hemorrhage
[2017-12-27] MEDS: Ipratropium/Albuterol Neb 3 ML IH SCH ×5 (00:05→16:25)
[2017-12-27] MEDS: Piperacillin/Tazobactam 3.375 GM in 0.9 % Sodium Chloride Mini Bag 100 ML IVPB SCH ×3 (01:17→17:02)
[2017-12-27 05:15] LABS: Basophils % 0.5 %; Eosinophils # 0.1 K/mcL (0.0-0.6); Eosinophils % 1.2 %; Hematocrit 32.2 % (37.5-50.1); Hemoglobin 10.5 g/dL (12.9-16.9); Immature Granulocytes % 0.5 % (0-4); Lymphocytes # 0.5 K/mcL (0.6-4.6); Lymphocytes % 6.1 %; Mean Corpuscular HGB Conc 32.6 g/dL (31.6-35.5); Mean Corpuscular Hemoglobin 29.8 pg (28.0-33.3); Mean Corpuscular Volume 91.5 fL (83.0-100.0); Mean Platelet Volume 9.8 fL (9.4-12.4); Monocytes # 1.2 K/mcL (0.0-1.3); Neutrophils # 6.7 K/mcL (1.6-8.9); Platelet Count 313 K/mcL (140-400); Red Blood Count 3.52 M/mcL (4.19-5.50); Red Cell Distribution Width 14.8 % (11.5-14.5); Segmented Neutrophils % 77.7 %
[2017-12-27 05:34] LABS: BUN/Creatinine Ratio 19 (6-26); Blood Urea Nitrogen 8 mg/dL (8-23); Calcium 9.2 mg/dL (8.6-10.3); Carbon Dioxide 28 mEq/L (23-29); Chloride 94 mEq/L (98-107); Glucose 110 mg/dL (70-105); Magnesium 2.3 mg/dL (1.6-2.6); Osmolality,Calculated 273 (280-300); Potassium 3.6 mEq/L (3.5-5.1); Sodium 132 mEq/L (136-145); eGFR For Non-African Americans > 60 (> 60)
[2017-12-27] MEDS: Pantoprazole 40 MG VIAL IVP SCH ×2 (06:41→17:03)
[2017-12-27] MEDS: Budesonide/Formoterol 160/4.5 1 PUFF INH IH SCH ×2 (07:36→20:02)
--- NOTE | 2017-12-27 09:31 | Internal Med Progress Note ---
<Scott Stephen - Last Filed: 12/27/17 16:56> Hospitalist Progress Note - Encounter Date of Encounter: 12/27/17 Time of Encounter: 10:30 - Subjective Interval History: Patient seen and evaluated at bedside. Discussed dizziness symptoms today he says occurs on standing. Denies fever, is breathing well on room air. Good urine output denies blood in stool, hemoptysis, or abdominal pain. - Exam Vitals: Temp Pulse Resp BP Pulse Ox 98.5 F 90 16 107/66 97 12/27/17 07:31 12/27/17 07:31 12/27/17 07:31 12/27/17 07:31 12/27/17 07:31 Exam: gen- alert, awake,appears stated age eyes- pupils equal round, no conjunctival pallor cv- reg rate and rhythm, normal s1,s2, no murmurs appreciated, no le edema lungs- ctabl, no wheezing, rhonchi or crackles, normal resp effort on ra abd- soft, non tender, non distended, + bs neuro- AAOx3, no agitation, no tremor - Assessment and Plan (1) Acute respiratory failure with hypoxia Current Visit: Yes Status: Resolved Assessment and Plan: Acute hypoxic and hypercarbic Resp failure 2/2 pleural effusion and suspected aspiration Pneumonia CTA without PE or clear consolidation imaging has consistently shown right sided effusion, small on CXR 12/23 -checked echo with bubble and small pfo/asd with mild atrial enlargement and normal eF pna treatment as below po daily lasix weaned to room air (2) Pneumonia Current Visit: Yes Status: Inactive Assessment and Plan: see above pulm followed in icu PRN duonebs Continue incentive spirometry Continue Zosyn; 1 more day of zosyn (day 10 iv abx tomorrow) 6 min walk tomorrow/day of discharge, determination of O2 dependence on exertion (3) Hyponatremia Current Visit: Yes Status: Acute Assessment and Plan: Hyponatremia-no prior jas to see if this is acute, chronic or acute on chronic plikely 2/2 beer potomania prior to ICU transfer he examined as hypervolemic with effusion and bl le edema, now euvolemic -improving slowly with gentle diuresis po daily, cont to monitor mental status is back to baseline (4) Alcohol abuse Current Visit: Yes Status: Inactive Assessment and Plan: ETOH abuse - ciwa q12, no w/d symptoms, tele, monitor lytes -check ruq us and coarse non specific echogenic texture to liver of unclear significance -gi consulted (5) Pulmonary HTN Current Visit: Yes Status: Suspected Assessment and Plan: - Suspected pulmonary hypertension by the radiological criteria. however echocardiogram did not show any evidence of pulmonary hypertension - It would be reasonable to follow-up with a chief of service as an outpatient to further work it up (6) Tobacco abuse Current Visit: Yes Status: Chronic Assessment and Plan: -Patient has a history of extensive tobacco abuse. Consult on smoking cessation. nicotine patch prn (7) Altered mental status Current Visit: Yes Status: Resolved Assessment and Plan: - initially p/w altered mental status mulifactorial in nature : hyponatremia hypercarbic on ABG, mildly elevated ammonia (54). no evidence of intracranial abnormality on head CT. TSH, B12 WNL, urology toxicology screen negative -this has since resolved (8) GI bleed Current Visit: Yes Status: Acute Assessment and Plan: 2/2 duodenal ulcers EGD 12/22/17 demonstrated 2 large cratered duodenal ulcers. The ulcers demonstrated stigmata of recent hemorrhage. Treated with endoscopically injected epinephrine and application of Hemaspray by Dr Vazquez No ulcers visualized in the stomach or esophagus Pt received 1 unit pRBC on 12/24 Was on octreotide for 48 hours Transitioned from Protonix drip to BID IV Protonix Stable and off pressors 12/24 and transferred to floor adat, cont to monitor for bleeding, PPI Avoid aspirin, steroids, nonsteroidal anti-inflammatories. stop etoh use (9) Duodenal ulcer Current Visit: Yes Status: Acute Assessment and Plan: see above (10) Acute anemia Current Visit: Yes Status: Acute Assessment and Plan: 2/2 GIB bleed now resolved anemia stable hgb and now slowly uptrending cont to monitor for bleeding (8) Dizziness on standing Current Visit: Yes Status: acute Assessment and Plan: -orthostatics wnl -Clinically euvolemic -improved hgb s/p chem cautery with surgery -Appreciate PT OT recommendations DVT Prophylaxis: scd - Time Spent with Patient Total time spent is greater than 50% in coordination of care (as documented) at patient's floor/unit and/or counseling patient: Plan of Care Discussed with: patient Internal Medicine: Result - Labs CBC & Chem 7: 12/27/17 04:49 12/27/17 04:49 Labs: Short CBC 12/27/17 Range/Units 04:49 WBC 8.6 (4.3-11.1) K/mcL Hgb 10.5 L (12.9-16.9) g/dL Hct 32.2 L (37.5-50.1) % Plt Count 313 (140-400) K/mcL Neutrophils # 6.7 (1.6-8.9) K/mcL BMP 12/27/17 04:49 Sodium 132 L Potassium 3.6 Chloride 94 L Carbon Dioxide 28 BUN 8 Creatinine 0.43 L Glucose 110 H Calcium 9.2 - ABG Interpretation ABG results: ABG ABG pH 7.33 pH Units (7.32-7.45) 12/19/17 04:18 ABG pCO2 64 mmHg (35-45) H 12/19/17 04:18 ABG pO2 85 mmHg (85-104) 12/19/17 04:18 ABG O2 Saturation 95 % (95-98) 12/19/17 04:18 PT/INR, D-dimer PT 13.1 Seconds (9.4-12.1) H 12/23/17 03:05 D-Dimer 1385 ng/mLFEU (0-500) H 12/19/17 02:26 - VTE Documentation of Mechanical Device: Intermittent pneumatic compression device Consult Discharge Plan - Plan [facility]errals: [facility]Primary Care Provider[facility] - <Catarina Otero - Last Filed: 12/27/17 17:11> Hospitalist Progress Note - Encounter Date of Encounter: 12/27/17 - Exam Vitals: Temp Pulse Resp BP Pulse Ox 98.3 F 111 16 93/55 93 12/27/17 13:35 12/27/17 13:35 12/27/17 13:35 12/27/17 14:44 12/27/17 15:17 - Assessment and Plan (1) Acute respiratory failure with hypoxia Current Visit: Yes Status: Resolved (2) Pneumonia Current Visit: Yes Status: Inactive (3) Hyponatremia Current Visit: Yes Status: Acute (4) Alcohol abuse Current Visit: Yes Status: Inactive (5) Pulmonary HTN Current Visit: Yes Status: Suspected (6) Tobacco abuse Current Visit: Yes Status: Chronic (7) Altered mental status Current Visit: Yes Status: Resolved (8) GI bleed Current Visit: Yes Status: Acute (9) Duodenal ulcer Current Visit: Yes Status: Acute (10) Acute anemia Current Visit: Yes Status: Acute - Time Spent with Patient Total time spent is greater than 50% in coordination of care (as documented) at patient's floor/unit and/or counseling patient: Internal Medicine: Result - Labs CBC & Chem 7: 12/27/17 04:49 12/27/17 04:49 Labs: Short CBC 12/27/17 Range/Units 04:49 WBC 8.6 (4.3-11.1) K/mcL Hgb 10.5 L (12.9-16.9) g/dL Hct 32.2 L (37.5-50.1) % Plt Count 313 (140-400) K/mcL Neutrophils # 6.7 (1.6-8.9) K/mcL BMP 12/27/17 04:49 Sodium 132 L Potassium 3.6 Chloride 94 L Carbon Dioxide 28 BUN 8 Creatinine 0.43 L Glucose 110 H Calcium 9.2 - ABG Interpretation ABG results: ABG ABG pH 7.33 pH Units (7.32-7.45) 12/19/17 04:18 ABG pCO2 64 mmHg (35-45) H 12/19/17 04:18 ABG pO2 85 mmHg (85-104) 12/19/17 04:18 ABG O2 Saturation 95 % (95-98) 12/19/17 04:18 PT/INR, D-dimer PT 13.1 Seconds (9.4-12.1) H 12/23/17 03:05 D-Dimer 1385 ng/mLFEU (0-500) H 12/19/17 02:26 - Attending Attestation I examined this patient and my medical decision-making was reviewed with the Resident Physician Dr Stephen. I agree with the documented findings, disposition and treatment plan as described except to the extent set forth below. Mr Crowder was admitted with acute respiratory failure, suspected asp pna, in setting of etoh dependence and developed gib from duodenal ulcers. He remains on iv abx and with hgb monitoring. awake, on o2 nc. sob sob at rest or with exertion. needing 1 person assist to bathroom and had some lightheadedness with standing last night. no presyncoep today, cp, plapitations. denies sob, cough, wheezing. fatigued but clinically improving. no abd pain, n/v, melena or heamtochezia. gen- alert, awake,appears stated age eyes- pupils equal round, no conjunctival pallor cv- reg rate and rhythm, normal s1,s2, no murmurs appreciated, no le edema lungs- ctabl, no wheezing, rhonchi or crackles, normal resp effort on ra abd- soft, non tender, non distended, + bs neuro- AAOx3 acute resp failure 2/2 suspected asp pna -today is day 9 iv abx as d/w pharmacy- complete day ten zosyn in am, not on steroids, wean o2 6 minute walk, pt/ot evals hypnatremia, has been stable in recent days 132- daily lasix, fluid restrict etoh abuse- not in active w/d, oarse non specific echogenic texture to liver of unclear significance, fu with gi outpt on dc anemia 2/2 gib 2/2 duodenal ulcers- hgb stable, cont ppi, gi outpt fu further diagnoses and plan as documented by resident dispo- pt/ot evals pending, may be able to dc to home tomorrow pending recs home o2 eval <Catarina Otero - Last Filed: 12/27/17 17:11> (2) Pneumonia Qualifiers: Pneumonia type: aspiration pneumonia Aspiration pneumonia type: unspecified Laterality: right Lung location: lower lobe of lung Qualified Code(s): J69.0 - Pneumonitis due to inhalation of food and vomit (7) Altered mental status Qualifiers: Altered mental status type: unspecified Qualified Code(s): R41.82 - Altered mental status, unspecified (8) GI bleed Qualifiers: GI bleed type/associated pathology: duodenal ulcer Qualified Code(s): K26.4 - Chronic or unspecified duodenal ulcer with hemorrhage
[2017-12-27] MEDS: Thiamine (B-1) 100 MG TABLET PO SCH (10:09)
[2017-12-27] MEDS: Cholecalciferol (D-3) 1,000 UNIT TABLET PO SCH (10:09)
[2017-12-27] MEDS: Vitamin B Complex/Vit C/Vit E 1 EACH TABLET PO SCH (10:09)
[2017-12-27] MEDS: Folic Acid 1 MG TABLET PO SCH (10:09)
[2017-12-27] MEDS: Furosemide 40 MG TABLET PO SCH (10:09)
[2017-12-27] MEDS: Multivit/Ca/Min/Fe/FA 1 TAB TABLET PO SCH (10:09)
[2017-12-27] MEDS ORDERED: Ipratropium/Albuterol Neb 3 ML IH PRN (16:00)
--- NOTE | 2017-12-27 16:42 | Physician Discharge Referral ---
<Scott Stephen - Last Filed: 12/27/17 16:45> Home Health/Hosp Referral Info Transfer to: Home Health Provider in Charge Post Discharge: PCP - Diagnosis (2) Acute on chronic respiratory failure with hypoxemia Priority: Primary Status: Acute (3) Pneumonia Priority: Secondary Status: Acute (4) Hyponatremia Priority: Secondary Status: Acute (5) Pulmonary HTN Priority: Secondary Status: Acute (6) Tobacco abuse Priority: Secondary Status: Chronic (7) Pulmonary HTN Priority: Secondary Status: Suspected (8) Altered mental status Priority: Secondary Status: Resolved - Respiratory Orders Smoking Cessation: Smoking cessation has been advised. For more information, call the [place] Tobacco Quit Line at 7-144-EWNP-NOW. - Services Needed Following services are medically necessary services: Nursing, Physical Therapy - Transfer Medications Home Medications: Amlodipine Besylate 10 mg PO DAILY 12/19/17 [History] Atorvastatin [Lipitor] 40 mg PO HS 12/19/17 [History] Cholecalciferol (D-3) [Vitamin D] 1,000 unit PO DAILY 12/19/17 [History] Lisinopril [Zestril] 40 mg PO DAILY 12/19/17 [History] Metoprolol Succinate [Toprol Xl] 100 mg PO DAILY 12/19/17 [History] Multivit-Min/FA/Lycopen/Lutein [A Thru Z Select Men 50+ Tablet] 1 tab PO DAILY 12/19/17 [History] Tamsulosin [Flomax] 0.4 mg PO DAILY 12/19/17 [History] Allergies/Adverse Reactions: Allergy/AdvReac Type Severity Reaction Status Date / Time No Known Allergies Allergy Verified 12/18/17 17:59 Certification: Further, I certify that my clinical findings support that this patient is homebound (i.e. absences from home require considerable and taxing effort and are for medical reasons or jewish services or infrequently or short duration when for other reasons) because: Homebound Reason: Leaving home requires considerable and taxing effort due to condition Attestation: My signature below is to certify that this patient is under my care and that I, or nurse practitioner, or a physician's golf player assistant working with me, has a [id number] encounter with this patient. <Catarina Otero - Last Filed: 12/27/17 17:14> - Diagnosis (1) Acute respiratory failure with hypoxia Status: Resolved (2) Pneumonia Status: Inactive (3) Hyponatremia Status: Acute (4) Alcohol abuse Status: Inactive (5) Pulmonary HTN Status: Suspected (6) Tobacco abuse Status: Chronic (7) Altered mental status Status: Resolved (8) GI bleed Status: Acute (9) Duodenal ulcer Status: Acute (10) Acute anemia Status: Acute - Respiratory Orders Smoking Cessation: Smoking cessation has been advised. For more information, call the [place] Tobacco Quit Line at 3-737-ORXZ-NOW. Certification: Further, I certify that my clinical findings support that this patient is homebound (i.e. absences from home require considerable and taxing effort and are for medical reasons or jewish services or infrequently or short duration when for other reasons) because: Attestation: My signature below is to certify that this patient is under my care and that I, or nurse practitioner, or a physician's golf player assistant working with me, has a [id number] encounter with this patient.
[2017-12-28] MEDS: Piperacillin/Tazobactam 3.375 GM in 0.9 % Sodium Chloride Mini Bag 100 ML IVPB SCH ×2 (01:39→08:18)
[2017-12-28 05:51] LABS: Basophils # 0.1 K/mcL (0.0-0.2); Basophils % 0.6 %; Eosinophils # 0.1 K/mcL (0.0-0.6); Eosinophils % 1.5 %; Hemoglobin 10.9 g/dL (12.9-16.9); Immature Granulocytes % 0.9 % (0-4); Lymphocytes # 0.6 K/mcL (0.6-4.6); Lymphocytes % 6.3 %; Mean Corpuscular Hemoglobin 30.3 pg (28.0-33.3); Mean Corpuscular Volume 91.7 fL (83.0-100.0); Mean Platelet Volume 9.6 fL (9.4-12.4); Monocytes # 1.4 K/mcL (0.0-1.3); Monocytes % 14.4 %; Neutrophils # 7.1 K/mcL (1.6-8.9); Platelet Count 374 K/mcL (140-400); Red Cell Distribution Width 14.8 % (11.5-14.5); Segmented Neutrophils % 76.3 %
[2017-12-28] MEDS: Pantoprazole 40 MG VIAL IVP SCH (05:54)
[2017-12-28 06:08] LABS: BUN/Creatinine Ratio 18 (6-26); Blood Urea Nitrogen 8 mg/dL (8-23); Calcium 9.5 mg/dL (8.6-10.3); Carbon Dioxide 27 mEq/L (23-29); Chloride 95 mEq/L (98-107); Glucose 109 mg/dL (70-105); Osmolality,Calculated 273 (280-300); Potassium 3.3 mEq/L (3.5-5.1); Sodium 132 mEq/L (136-145); eGFR For Non-African Americans > 60 (> 60)
[2017-12-28] MEDS: Budesonide/Formoterol 160/4.5 1 PUFF INH IH SCH (07:28)
[2017-12-28] MEDS: Multivit/Ca/Min/Fe/FA 1 TAB TABLET PO SCH (08:19)
[2017-12-28] MEDS: Folic Acid 1 MG TABLET PO SCH (08:19)
[2017-12-28] MEDS: Furosemide 40 MG TABLET PO SCH (08:19)
[2017-12-28] MEDS: Thiamine (B-1) 100 MG TABLET PO SCH (08:19)
[2017-12-28] MEDS: Vitamin B Complex/Vit C/Vit E 1 EACH TABLET PO SCH (08:20)
[2017-12-28] MEDS: Cholecalciferol (D-3) 1,000 UNIT TABLET PO SCH (08:20)
[2017-12-28 10:17] VITALS: BP 104/66
--- NOTE | 2017-12-28 14:09 | Discharge Summary ---
<Scott Stephen - Last Filed: 12/28/17 14:42> - NOTES TO OUTPATIENT PROVIDER Notes to Outpatient Provider: Recommend Follow-up with surgery for GI bleed. Outpatient rehabilitation will be performed with home health PT. Recommend follow-up CBC in 3 days Orders not resulted at time of discharge: Pending orders 12/23/17 13:22 Culture,Blood [BC] Stat 12/23/17 13:25 Culture,Blood [BC] Stat Date of Encounter: 12/28/17 Time of Encounter: 10:30 - Discharge Diagnosis (1) Acute respiratory failure with hypoxia Priority: Primary Status: Resolved (2) Alcohol abuse Priority: Secondary Status: Acute (3) Hyponatremia Priority: Secondary Status: Acute (4) Pneumonia Priority: Secondary Status: Acute Qualifiers: Pneumonia type: due to unspecified organism Laterality: unspecified laterality Lung location: unspecified part of lung Qualified Code(s): J18.9 - Pneumonia, unspecified organism (5) Tobacco abuse Priority: Secondary Status: Chronic (6) Altered mental status Priority: Secondary Status: Resolved Qualifiers: Altered mental status type: unspecified Qualified Code(s): R41.82 - Altered mental status, unspecified Hospital course: Mr. Crowder is a 62 year old male presented as hospital transfer on 12-19, no PMH, presented via EMS for agitation and hypoxia. He was admitted with acute respiratory failure suspected aspiration pneumonia in the setting of alcohol dependence and was found to have gastrointestinal bleed from duodenal ulcers. Patient was urgently referred for melena hypotension and hemoglobin falling from 16.6-11.8. A central line was placed via the right internal jugular and transferred to ICU for further evaluation, patient was started on norepinephrine. 2 large cratered ulcers were identified on EGD likely the source of upper GI hemorrhage these were chemically cauterized. Patient was also treated for pneumonia started on broad-spectrum antibiotics completed a 10 day course of IV antibiotics without de-escalation he was weaned to room air and satted in the mid 90s on RA. Patient was evaluated for home health, will be given nursing and PT at home. Discharge discussed with: patient - Time Spent with Patient Total time spent providing and/or coordinating discharge services: - Discharge Medications Home Medications: RX: Amlodipine Besylate 10 mg PO DAILY 12/19/17 [History] RX: Atorvastatin [Lipitor] 40 mg PO HS 12/19/17 [History] RX: Cholecalciferol (D-3) [Vitamin D] 1,000 unit PO DAILY 12/19/17 [History] RX: Lisinopril [Zestril] 40 mg PO DAILY 12/19/17 [History] RX: Metoprolol Succinate [Toprol Xl] 100 mg PO DAILY 12/19/17 [History] RX: Multivit-Min/FA/Lycopen/Lutein [A Thru Z Select Men 50+ Tablet] 1 tab PO DAILY 12/19/17 [History] RX: Tamsulosin [Flomax] 0.4 mg PO DAILY 12/19/17 [History] RX: Omeprazole 20 mg PO BID #60 tablet. 12/28/17 [Rx] Allergies/Adverse Reactions: Allergy/AdvReac Type Severity Reaction Status Date / Time No Known Allergies Allergy Verified 12/18/17 17:59 Date of admission: 12/19/17 00:46 [facility] care physician: [facility] Consults: 12/19/17 01:00 Consult to [facility] [facility] [CONS] Routine Reason for SW Consult: Alcohol abuse 12/19/17 06:20 Consult to Nephrology [CONS] Routine Consulting Provider: Kidney Johanny/JOSUE/AMELIA/SHAUN Reason for Consult: Patient initially presented with AMS and shortness of breath and arrived here as transfer. Had 1mg ativan at outside ED due to combativeness and has been extremely somnolent since. No known kidney disease. Hx alcohol abuse. Hyponatremic with low osmolality and normal urine studies. Elevated phosphate of 4.9. Time Notified: 06:26 Call Completed: No Consult to Pulmonology [CONS] Routine Consulting Provider: [facility] Reason for Consult: Patient presented with AMS and shortness of breath - is now extremely somnolent and difficult to rouse. Currently requiring BiPAP due to poor oxygen saturation on nasal cannula. CTA demonstrates bilateral pleural effusions and possible pneumonia, as well as pulmonary hypertension. Time Notified: 06:22 Call Completed: Yes 12/21/17 13:56 Consult to Pulmonology [CONS] Routine Consulting Provider: [facility] Reason for Consult: hypoxic Call Completed: Yes 12/21/17 15:19 Consult to Speech Therapy [CONS] Routine Comment: Evaluate, develop and implement POC Reason for Consult: concern for asp pna Call Completed: No 12/22/17 17:14 Consult to Critical Care [CONS] Routine Consulting Provider: [facility] Reason for Consult: Acute GI bleed, hypotensive, ETOH abuse Call Completed: No 12/23/17 15:07 Consult to Surgery [CONS] Routine Consulting Provider: Ernie Vazquez Reason for Consult: duodenal ulcer Time Notified: 15:07 Call Completed: No 12/27/17 08:39 Consult to Physical Therapy [CONS] Routine Comment: Evaluate, develop and implement POC Reason for Consult: eval develop and implement poc Does patient have active BEDREST order?: No Is patient medically & hemodynamically stable?: Yes Patient assessed for mobility or mobilized this visit?: Yes OT [Consult to Occupational Therapy] [CONS] Routine Comment: Evaluate, develop and implement POC Reason for Consult: eval develop and implement poc Does patient have active BEDREST order?: No Is patient medically & hemodynamically stable?: Yes Patient assessed for mobility or mobilized this visit?: Yes - Constitutional Vitals: Temp Pulse Resp BP Pulse Ox 97.6 F 105 16 104/66 91 12/28/17 10:16 12/28/17 10:16 12/28/17 10:16 12/28/17 10:16 12/28/17 10:16 Exam: gen- alert, awake,appears stated age eyes- pupils equal round, no conjunctival pallor cv- reg rate and rhythm, normal s1,s2, no murmurs appreciated, no le edema lungs- ctabl, no wheezing, rhonchi or crackles, normal resp effort on ra abd- soft, non tender, non distended, + bs neuro- AAOx3, no agitation, no tremor - Patient Status Disposition: Home, Self-Care Condition: Fair Functional capacity at discharge: independent ambulation Overall status at discharge: patient is progressing back to baseline - Ambulatory Orders Ambulatory Orders: Complete Blood Count [HEME] Time Frame: 3 Days, Facility: [facility], Location: Lab - Discharge Instructions Follow Up With: [facility] [Outside] - 01/03/18 10:30 am Additional Instructions: Please follow-up with Surgery (Dr. Vazquez's) outpatient for debrief/follow-up on your GI bleed. Avoid aspirin, steroids, NSAIDs, alcohol cessation strongly recommended - Diet and Activity Activity: as per physical therapy Diet: regular diet - VTE Documentation of Mechanical Device: Intermittent pneumatic compression device <Ap Garcia Thomas - Last Filed: 12/28/17 19:42> Date of Encounter: 12/28/17 - Discharge Diagnosis (1) Altered mental status Status: Resolved Qualifiers: Altered mental status type: unspecified Qualified Code(s): R41.82 - Altered mental status, unspecified (2) Pneumonia Priority: Secondary Status: Inactive Qualifiers: Pneumonia type: aspiration pneumonia Aspiration pneumonia type: unspecified Laterality: right Lung location: lower lobe of lung Qualified Code(s): J69.0 - Pneumonitis due to inhalation of food and vomit (3) Hyponatremia Status: Acute (4) Alcohol abuse Priority: Secondary Status: Inactive (5) Pulmonary HTN Priority: Secondary Status: Suspected (6) Acute respiratory failure with hypoxia Status: Resolved (7) Tobacco abuse Status: Chronic (8) Duodenal ulcer Priority: Secondary Status: Chronic (9) GI bleed Priority: Secondary Status: Resolved Qualifiers: GI bleed type/associated pathology: duodenal ulcer Qualified Code(s): K26.4 - Chronic or unspecified duodenal ulcer with hemorrhage (10) Acute anemia Priority: Secondary Status: Acute (11) Anemia Priority: Secondary Status: Acute Qualifiers: Anemia type: other cause Other causes of anemia: acute posthemorrhagic Qualified Code(s): D62 - Acute posthemorrhagic anemia Hospital course: Mr. Crowder is a 62 year old male - Time Spent with Patient Total time spent providing and/or coordinating discharge services: Date of admission: 12/19/17 00:46 Primary care physician: PCP [place] Consults: 12/19/17 01:00 Consult to [facility] [facility] [CONS] Routine Reason for SW Consult: Alcohol abuse 12/19/17 06:20 Consult to Nephrology [CONS] Routine Consulting Provider: Kidney Johanny/JOSUE/AMELIA/SHAUN Reason for Consult: Patient initially presented with AMS and shortness of breath and arrived here as transfer. Had 1mg ativan at outside ED due to combativeness and has been extremely somnolent since. No known kidney disease. Hx alcohol abuse. Hyponatremic with low osmolality and normal urine studies. Elevated phosphate of 4.9. Time Notified: 06:26 Call Completed: No Consult to Pulmonology [CONS] Routine Consulting Provider: [facility] Reason for Consult: Patient presented with AMS and shortness of breath - is now extremely somnolent and difficult to rouse. Currently requiring BiPAP due to poor oxygen saturation on nasal cannula. CTA demonstrates bilateral pleural effusions and possible pneumonia, as well as pulmonary hypertension. Time Notified: 06:22 Call Completed: Yes 12/21/17 13:56 Consult to Pulmonology [CONS] Routine Consulting Provider: [facility] Reason for Consult: hypoxic Call Completed: Yes 12/21/17 15:19 Consult to Speech Therapy [CONS] Routine Comment: Evaluate, develop and implement POC Reason for Consult: concern for asp pna Call Completed: No 12/22/17 17:14 Consult to Critical Care [CONS] Routine Consulting Provider: Pulm [facility]anny Reason for Consult: Acute GI bleed, hypotensive, ETOH abuse Call Completed: No 12/23/17 15:07 Consult to Surgery [CONS] Routine Consulting Provider: Surgery [facility] - [facility] Reason for Consult: duodenal ulcer Time Notified: 15:07 Call Completed: No 12/27/17 08:39 Consult to Physical Therapy [CONS] Routine Comment: Evaluate, develop and implement POC Reason for Consult: eval develop and implement poc Does patient have active BEDREST order?: No Is patient medically & hemodynamically stable?: Yes Patient assessed for mobility or mobilized this visit?: Yes OT [Consult to Occupational Therapy] [CONS] Routine Comment: Evaluate, develop and implement POC Reason for Consult: eval develop and implement poc Does patient have active BEDREST order?: No Is patient medically & hemodynamically stable?: Yes Patient assessed for mobility or mobilized this visit?: Yes - Constitutional Vitals: Temp Pulse Resp BP Pulse Ox 97.6 F 105 16 104/66 91 12/28/17 10:16 12/28/17 10:16 12/28/17 10:16 12/28/17 10:16 12/28/17 10:16 - Attending Attestation I examined this patient and my medical decision-making was reviewed with the Resident Physician on 12/28/17. I agree with the documented findings, disposition and treatment plan as described except to the extent set forth below. Mr Crowder has been admitted for acute hypoxic resp failure. He has improved and not on oxygen. He is ambulating without issue. He is now afebrile and ready for discharge home. Exam alert Comfortable Mucus membranes dry Heart reg No wheeze Abd soft and nontender No edema Plan D/C home today.
== END 2017-12-28 14:45 | disposition home or self-care (01) | DRG 177 ==
LOC: 2NENU → SUATTDRO 12-19 00:46 → ICNU 12-22 19:12 → 3ANU 12-25 14:50
PROVIDERS: ADMIT Internal Medicine; ATTEND Internal Medicine

== ENCOUNTER 2021-01-23 14:30 | Inpatient (IN) ==
[2021-01-23] MEDS ORDERED: methylPREDNISolone 125 MG/2 ML VIAL IVP ONE (14:41)
[2021-01-23] MEDS ORDERED: Ipratropium/Albuterol Neb 3 ML IH ONE (14:51)
[2021-01-23 15:16] LABS: Basophils % 0.5 %; Eosinophils % 0.4 %; Hemoglobin 20.6 g/dL (12.9-16.9); Immature Granulocytes % 0.5 % (0-4); Lymphocytes # 0.7 K/mcL (0.6-4.6); Lymphocytes % 8.5 %; Mean Corpuscular HGB Conc 32.8 g/dL (31.6-35.5); Mean Corpuscular Hemoglobin 30.3 pg (28.0-33.3); Mean Corpuscular Volume 92.5 fL (83.0-100.0); Mean Platelet Volume 9.2 fL (9.4-12.4); Monocytes # 1.3 K/mcL (0.0-1.3); Monocytes % 14.8 %; Neutrophils # 6.4 K/mcL (1.6-8.9); Platelet Count 196 K/mcL (140-400); Red Blood Count 6.79 M/mcL (4.19-5.50); Red Cell Distribution Width 15.9 % (11.5-14.5); Segmented Neutrophils % 75.3 %; White Blood Count 8.5 K/mcL (4.3-11.1)
[2021-01-23 15:17] LABS: Hematocrit 62.8 % (37.5-50.1)
[2021-01-23 15:22] LABS: VBG HCO3 37 mEq/L (21-27); VBG PCO2 71 mmHg (41-51); VBG PH 7.33 pH Units (7.32-7.42); VBG PO2 56 mmHg (25-50)
[2021-01-23 15:47] LABS: BUN/Creatinine Ratio 12 (6-26); Blood Urea Nitrogen 7 mg/dL (8-23); Carbon Dioxide 34 mEq/L (23-29); Chloride 87 mEq/L (98-107); Glucose 88 mg/dL (70-105); Osmolality,Calculated 261 (280-300); Potassium 4.7 mEq/L (3.5-5.1); Sodium 127 mEq/L (136-145); eGFR For African Americans > 60 (> 60); eGFR For Non-African Americans > 60 (> 60)
[2021-01-23 15:48] LABS: Influenza A PCR Negative (Negative); Influenza B PCR Negative (Negative); Resp. Syncytial Virus PCR Negative (Negative)
[2021-01-23 15:48] LABS: Troponin I < 0.03 ng/mL (< 0.04)
[2021-01-23] MEDS ORDERED: Isovue-370 500 ML BOTTLE IVP ONE ×3 (15:51→18:02)
[2021-01-23 15:55] LABS: SARS-CoV-2 by PCR (In House) Negative (Negative)
[2021-01-23] MEDS ORDERED: Naloxone 0.4 MG/ML INJ IVP PRN (19:43)
[2021-01-23] MEDS ORDERED: Melatonin 3 MG TABLET PO PRN (19:48)
[2021-01-23] MEDS: Ipratropium/Albuterol Neb 3 ML IH SCH (21:23)
[2021-01-23] MEDS: Budesonide/Formoterol 160/4.5 1 PUFF INH IH SCH (21:24)
[2021-01-24] MEDS: MethylPREDNISolone 40 MG/ML VIAL IVP SCH ×4 (01:07→23:39)
[2021-01-24] MEDS: Ipratropium/Albuterol Neb 3 ML IH SCH ×4 (03:37→19:44)
[2021-01-24 04:57] LABS: Hemoglobin 20.1 g/dL (12.9-16.9); Mean Corpuscular HGB Conc 32.8 g/dL (31.6-35.5); Mean Corpuscular Volume 91.4 fL (83.0-100.0); Mean Platelet Volume 9.2 fL (9.4-12.4); Platelet Count 196 K/mcL (140-400); Red Blood Count 6.71 M/mcL (4.19-5.50); Red Cell Distribution Width 16.5 % (11.5-14.5)
[2021-01-24 04:58] LABS: Hematocrit 61.3 % (37.5-50.1); White Blood Count 2.6 K/mcL (4.3-11.1)
[2021-01-24 05:02] LABS: BUN/Creatinine Ratio 13 (6-26); Blood Urea Nitrogen 6 mg/dL (8-23); Calcium 8.9 mg/dL (8.6-10.3); Carbon Dioxide 34 mEq/L (23-29); Chloride 90 mEq/L (98-107); Glucose 120 mg/dL (70-105); Magnesium 1.9 mg/dL (1.6-2.6); Osmolality,Calculated 271 (280-300); Phosphorous 5.2 mg/dL (2.7-4.5); Potassium 4.9 mEq/L (3.5-5.1); Sodium 131 mEq/L (136-145); eGFR For African Americans > 60 (> 60); eGFR For Non-African Americans > 60 (> 60)
[2021-01-24 05:19] LABS: Thyroid Stimulating Hormone 0.438 mcIU/mL (0.340-5.600)
[2021-01-24] MEDS: *HR* Heparin 5,000 UNIT/ML VIAL SQ SCH ×2 (06:49→17:20)
[2021-01-24] MEDS: Budesonide/Formoterol 160/4.5 1 PUFF INH IH SCH ×2 (09:28→19:44)
[2021-01-25] MEDS: Ipratropium/Albuterol Neb 3 ML IH SCH ×4 (03:29→20:55)
[2021-01-25] MEDS: *HR* Heparin 5,000 UNIT/ML VIAL SQ SCH ×2 (05:12→17:39)
[2021-01-25] MEDS ORDERED: MethylPREDNISolone 40 MG/ML VIAL IVP SCH (07:45)
[2021-01-25] MEDS: Budesonide/Formoterol 160/4.5 1 PUFF INH IH SCH ×2 (08:28→20:57)
[2021-01-25] MEDS: lisinopriL 20 MG TABLET PO SCH (08:37)
[2021-01-25] MEDS: amLODIPine 5 MG TABLET PO SCH (08:37)
[2021-01-25] MEDS: Metoprolol XL (24 HR) Succ 50 MG TAB.ER.24H PO SCH (08:37)
[2021-01-25] MEDS: Aspirin Enteric Coated 81 MG Tablet PO SCH (08:37)
[2021-01-25] MEDS: MethylPREDNISolone 40 MG/ML VIAL IVP SCH (13:51)
[2021-01-25 15:42] LABS: ABG Base Excess 5 mEq/L (-2 to 3); ABG HCO3 32 mEq/L (21-27); ABG Oxygen Saturation 91 % (95-98); ABG PCO2 52 mmHg (35-45); ABG PO2 63 mmHg (85-104); ABG TCO2 34 mEq/L (20-26)
[2021-01-26] MEDS: MethylPREDNISolone 40 MG/ML VIAL IVP SCH ×2 (03:00→11:37)
[2021-01-26] MEDS: Ipratropium/Albuterol Neb 3 ML IH SCH ×2 (03:16→07:26)
[2021-01-26 05:45] VITALS: BP 108/60; PULSE 76; TEMP 97.8
[2021-01-26] MEDS: *HR* Heparin 5,000 UNIT/ML VIAL SQ SCH (06:01)
[2021-01-26] MEDS: Budesonide/Formoterol 160/4.5 1 PUFF INH IH SCH (07:28)
[2021-01-26] MEDS: amLODIPine 5 MG TABLET PO SCH (09:40)
[2021-01-26] MEDS: Metoprolol XL (24 HR) Succ 50 MG TAB.ER.24H PO SCH (09:40)
[2021-01-26] MEDS: Aspirin Enteric Coated 81 MG Tablet PO SCH (09:40)
[2021-01-26] MEDS: lisinopriL 20 MG TABLET PO SCH (09:41)
[2021-01-26 11:05] VITALS: O2SAT 89
== END 2021-01-26 14:37 | disposition home or self-care (01) | DRG 190 ==
LOC: EMEROOARM 14:30 → 2ANU 14:30 → SUATTDRO 01-24 15:37
PROVIDERS: ADMIT Internal Medicine; ATTEND Internal Medicine